=== PATIENT | male | born 1970 | race Two or more races ===

== ENCOUNTER → 2020-08-28 | Outpatient (CLI) | payer OTHER ==
[2020-08-28 13:22] LABS: Urine Amorphous Crystal MOD /hpf (None Seen); Urine Bacteria NONE SEEN /hpf (None Seen); Urine Blood Negative /uL (Negative); Urine Specific Gravity 1.017 (1.001-1.035); Urine WBC 1 /hpf (0 - 3)
[2020-08-28 13:48] LABS: Basophils # (auto) 0 10 ^3/uL (0-0.2); Basophils % (auto) 0.4 % (0.0-2.0); Eosinophils # (auto) 0.1 10 ^3/uL (0-0.8); Eosinophils % (auto) 1.8 % (0.0-7.0); Hematocrit 45.4 % (41.0-53.0); Hemoglobin 15.9 g/dL (13.5-17.5); Lymphocytes # (auto) 1.6 10 ^3/uL (0.4-5.4); Lymphocytes % (auto) 26.7 % (10.0-50.0); Mean Corpuscular Hemoglobin 31.4 pg (28.0-32.0); Mean Corpuscular Volume 89.7 fL (80.0-100.0); Monocytes # (auto) 0.4 10 ^3/uL (0-1.3); Monocytes % (auto) 6.2 % (0.0-12.0); Neutrophils % (auto) 64.9 % (37.0-80.0); Nucleated Red Blood Cells % 0.2 %; Platelet Count (auto) 213 10^3/uL (140-450); Red Blood Cells 5.06 10^6/uL (4.5-5.90); Red Cell Distribution Width 13.2 % (11.8-14.3); White Blood Cell 6.2 10^3/uL (4.4-10.8)
[2020-08-28 14:04] LABS: Albumin 3.6 g/dL (3.4-5.0); Calcium 8.6 mg/dL (8.5-10.1); Potassium 4.5 mmol/L (3.5-5.1)
[2020-08-28 14:08] LABS: BUN/Creatinine Ratio 11.9; Bilirubin, Total 0.6 mg/dL (0.2-1.0); Total Protein 7.5 g/dL (6.4-8.2)
== END | disposition home or self-care (01) ==
LOC: LAB 12:50
PROVIDERS: ATTEND Internal Medicine
DX: R09.89 Other specified symptoms and signs involving the circulatory and respiratory systems (principal)
CPT/HCPCS: 36415; 80053; 81001; 82088; 82384; 83036; 84244; 84439; 84443; 85025; 85652

== ENCOUNTER → 2021-05-19 | Outpatient (CLI) | payer OTHER | END | disposition home or self-care (01) | LOC: LAB 12:23 | PROVIDERS: ATTEND Internal Medicine | DX: E11.9 Type 2 diabetes mellitus without complications (principal) | CPT/HCPCS: 36415; 83036; 84153 ==

== ENCOUNTER → 2021-10-02 | Outpatient (CLI) | payer OTHER ==
[2021-10-02 10:50] LABS: Urine Bacteria NONE SEEN /hpf (None Seen); Urine Blood 1+ /uL (Negative); Urine Mucus FEW (None Seen); Urine Specific Gravity 1.024 (1.001-1.035); Urine WBC 16 /hpf (0 - 3)
[2021-10-02 10:59] LABS: Basophils # (auto) 0 10 ^3/uL (0-0.2); Basophils % (auto) 0.8 % (0.0-2.0); Eosinophils # (auto) 0.2 10 ^3/uL (0-0.8); Eosinophils % (auto) 3.8 % (0.0-7.0); Hematocrit 39.5 % (41.0-53.0); Hemoglobin 13.8 g/dL (13.5-17.5); Lymphocytes # (auto) 1.7 10 ^3/uL (0.4-5.4); Lymphocytes % (auto) 29.3 % (10.0-50.0); Mean Corpuscular Hemoglobin 31.8 pg (28.0-32.0); Mean Corpuscular Hgb Conc. 34.9 g/dL (32.0-36.0); Mean Corpuscular Volume 91.1 fL (80.0-100.0); Monocytes # (auto) 0.5 10 ^3/uL (0-1.3); Monocytes % (auto) 9.4 % (0.0-12.0); Neutrophils # (auto) 3.3 10 ^3/uL (1.6-8.6); Neutrophils % (auto) 56.7 % (37.0-80.0); Nucleated Red Blood Cells % 0.1 %; Red Blood Cells 4.34 10^6/uL (4.5-5.90); Red Cell Distribution Width 13.3 % (11.8-14.3); White Blood Cell 5.8 10^3/uL (4.4-10.8)
[2021-10-02 11:16] LABS: Albumin 3.8 g/dL (3.4-5.0); Calcium 9.8 mg/dL (8.5-10.1); Potassium 4.3 mmol/L (3.5-5.1)
[2021-10-02 11:22] LABS: BUN/Creatinine Ratio 27.8; Bilirubin, Total 0.8 mg/dL (0.2-1.0); Total Protein 7.7 g/dL (6.4-8.2)
[2021-10-02 11:27] LABS: Free T4 (Free Thyroxine) 1.43 ng/dL (0.89-1.76); Prostate Specific Antigen 0.65 ng/mL (0.0-4.0)
== END | disposition home or self-care (01) ==
LOC: LAB 10:28
PROVIDERS: ATTEND Internal Medicine
DX: Z12.11 Encounter for screening for malignant neoplasm of colon (principal); I10 Essential (primary) hypertension; Z86.39 Personal history of other endocrine, nutritional and metabolic disease
CPT/HCPCS: 36415; 80053; 80061; 81001; 82043; 82270; 83036; 84153; 84439; 84443; 85025; 85652

== ENCOUNTER → 2022-06-16 | Outpatient (CLI) | payer OTHER ==
[2022-06-16 09:30] LABS: Urine Bacteria NONE SEEN /hpf (None Seen); Urine Blood Negative /uL (Negative); Urine Mucus FEW (None Seen); Urine Specific Gravity 1.026 (1.001-1.035); Urine WBC 1 /hpf (0 - 3)
[2022-06-16 10:43] LABS: BUN/Creatinine Ratio 18.8; Potassium 4.1 mmol/L (3.5-5.1)
[2022-06-16 10:44] LABS: Calcium 9.5 mg/dL (8.5-10.1)
== END | disposition home or self-care (01) ==
LOC: LAB 09:02
PROVIDERS: ATTEND Internal Medicine
DX: E11.21 Type 2 diabetes mellitus with diabetic nephropathy (principal); I10 Essential (primary) hypertension
CPT/HCPCS: 36415; 80048; 81001; 82043; 82570; 83036

== ENCOUNTER → 2022-10-14 | Outpatient (CLI) | payer OTHER ==
[2022-10-14 08:50] LABS: Basophils # (auto) 0 10 ^3/uL (0-0.2); Basophils % (auto) 0.6 % (0.0-2.0); Eosinophils # (auto) 0.2 10 ^3/uL (0-0.8); Eosinophils % (auto) 3.9 % (0.0-7.0); Hematocrit 43.8 % (41.0-53.0); Hemoglobin 15.1 g/dL (13.5-17.5); Lymphocytes # (auto) 1.9 10 ^3/uL (0.4-5.4); Lymphocytes % (auto) 38.5 % (10.0-50.0); Mean Corpuscular Hemoglobin 31.3 pg (28.0-32.0); Mean Corpuscular Hgb Conc. 34.4 g/dL (32.0-36.0); Monocytes # (auto) 0.4 10 ^3/uL (0-1.3); Monocytes % (auto) 8.3 % (0.0-12.0); Neutrophils # (auto) 2.5 10 ^3/uL (1.6-8.6); Neutrophils % (auto) 48.7 % (37.0-80.0); Nucleated Red Blood Cells % 0.3 %; Red Blood Cells 4.82 10^6/uL (4.5-5.90); Red Cell Distribution Width 12.7 % (11.8-14.3)
[2022-10-14 08:52] LABS: Urine Bacteria NONE SEEN /hpf (None Seen); Urine Blood Negative /uL (Negative); Urine Mucus FEW (None Seen); Urine Specific Gravity 1.022 (1.001-1.035); Urine WBC <1 /hpf (0 - 3)
[2022-10-14 09:24] LABS: Potassium 4.2 mmol/L (3.5-5.1)
[2022-10-14 09:31] LABS: Free T4 (Free Thyroxine) 1.38 ng/dL (0.89-1.76)
[2022-10-14 09:32] LABS: Prostate Specific Antigen 0.84 ng/mL (0.0-4.0)
[2022-10-14 09:33] LABS: Albumin 4.1 g/dL (3.4-5.0); BUN/Creatinine Ratio 18.1 (10.0-20.0); Bilirubin, Total 0.9 mg/dL (0.2-1.0); Calcium 9.1 mg/dL (8.5-10.1); Total Protein 7.8 g/dL (6.4-8.2)
[2022-10-14 09:43] LABS: Micro Albumin 27.6 mg/L (0-30.0)
== END | disposition home or self-care (01) ==
LOC: LAB 08:26
PROVIDERS: ATTEND Internal Medicine
DX: I10 Essential (primary) hypertension (principal); E11.9 Type 2 diabetes mellitus without complications; D64.9 Anemia, unspecified
CPT/HCPCS: 36415; 80053; 80061; 81001; 82043; 82570; 82607; 83036; 84153; 84439; 84443; 85025; 85652

== ENCOUNTER 2024-03-27 12:32 | Emergency (ER) | payer OTHER ==
[~2024-03-27] VITALS: Ht 175.3 cm; Wt 109.0 kg
[2024-03-27 13:55] VITALS: BP 160/83; PULSE 79; RESP 18; TEMP 98.8; O2SAT 96
[2024-03-27] MEDS: PROPARACAINE HCL 0.5% OPTH(EYE) SOL 15ML OP PRN (14:48)
[2024-03-27] MEDS: FLUORESCEIN SOD OPTH TEST STRIP LEFTEYE ONE (14:48)
[2024-03-27] MEDS ORDERED: ERY05OO OP (14:52)
[2024-03-27] MEDS: TETANUS-DIPTH-ACEL PERTUSSIS 0.5ML SYR Tdap IM ONE (14:52)
== END 2024-03-27 15:38 | disposition home or self-care (01) ==
LOC: ER 12:32
DX: S05.02XA Injury of conjunctiva and corneal abrasion without foreign body, left eye, initial encounter (principal); X58.XXXA Exposure to other specified factors, initial encounter; Y93.89 Activity, other specified; Y92.89 Other specified places as the place of occurrence of the external cause; Y99.8 Other external cause status
CPT/HCPCS: 90471; 90715

== ENCOUNTER 2024-12-11 04:22 | Inpatient (IN) | payer OTHER ==
[~2024-12-11] VITALS: Ht 175.3 cm; Wt 112.0 kg
[2024-12-11] VITALS (14 sets, daily range): BP systolic 133–174; BP diastolic 82–104; PULSE 71–103; RESP 13–18; TEMP 97.7–99; O2SAT 95–99
[~2024-12-11 04:22] MED LIST: ERY05OO OP
--- NOTE | 2024-12-11 05:00 | ED.PDOC ---
History of Present Illness HPI Comments 54-year-old male, with a history of kidney stones, presents with chief complaint of right flank discomfort, associated nausea and dry heaving. Patient endorses on having discomfort to his right flank for several months following recent diagnosis of small, nonobstructing kidney stone. Patient states on pain presenting along with additional onset of nausea and dry heaving around 2100, last night. Denies any recent injuries along with any additional pertinent or relevant history. Patient denies having any vomiting, urinary symptoms, fever, chills, or further associated symptoms. Chief Complaint: Flank Pain Time Seen by MD: 04:30 Primary Care Provider: PEEWEE Reviewed Notes: Nurses Notes, Medications, Allergies Allergies: Coded Allergies: NO KNOWN ALLERGIES (Unverified , 03/27/24) Home Meds Active Scripts Erythromycin (Erythromycin) 5 Mg/Gm Oin, 1 APPLIC OP TID for 7 Days, #5 GRAMS 0 Refills Prov:MIKEGUTIERREZ PIPELAYER 03/27/24 Reported Medications Labetalol Hcl (Labetalol Hcl) 100 Mg Tab, 1 TAB PO BID 12/11/24 Amlodipine Besylate (Amlodipine Besylate) 10 Mg Tab, 1 TAB PO 12/11/24 Mode of Arrival: Ambulatory Severity: Moderate Timing: Hours Duration: Since onset Prehospital treatment: None Review of Systems: REVIEW OF SYSTEMS: General: No fever, no chills, or fatigue HEENT: No sore throat, no earache, no congestion, no neck pain. Cardiac: No chest pain. No palpitations. Lungs: No shortness of breath, no cough. GI: Nausea, no vomiting, no diarrhea, no constipation, no abdominal pain : Right flank pain. No dysuria, frequency, or urgency. No hematuria. Musculoskeletal: No joint pain , no joint swelling, no extremity edema. Skin: No rash, no itching. Neuro: No headache, no dizziness, no weakness Vital Signs Vital Signs Date Time Temp Pulse Resp B/P (MAP) Pulse Ox O2 Delivery O2 Flow Rate FiO2 12/11/24 08:12 174/97 12/11/24 07:30 98.4 86 13 99 98.4 12/11/24 07:30 Room Air* 0 21 Physical Exam PHYSICAL EXAM: General: Awake, alert and oriented. No acute distress. Skin: Skin in warm, dry and intact. Appropriate color for ethnicity. HEENT: The head is normocephalic and atraumatic. Conjunctivae are clear without exudates or hemorrhage. Sclera is non-icteric. EOM are intact. No signs of nystagmus. Eyelids are normal in appearance without swelling or lesions. Oral mucosa is pink and moist Neck: The neck is supple with normal range of motion. No JVD. Cardiac: Heart rate and rhythm are normal. No murmurs, gallops, or rubs are auscultated. Respiratory: No signs of respiratory distress. Lung sounds are clear in all lobes bilaterally without rales, rhonchi, or wheezes. Abdominal: Right flank tenderness. Abdomen is soft, non-tender without distention, guarding or rigidity. Bowel sounds are present and normoactive in all four quadrants. Extremities: Upper and lower extremities are atraumatic in appearance without deformity or edema. Neurological: The patient is awake, alert and oriented to person, place, and time with normal speech. Speech is clear. There is no facial asymmetry. Psychiatric: Appropriate mood and affect. Good judgement and insight. Past Medical History PAST MEDICAL HISTORY: Kidney Stones Surgical History: Denies all surgeries Family History Family History: Reviewed,noncontributory to illness Social History Smoker: Non-Smoker Alcohol: Denies ETOH Use Drugs: Denies Drug Use Lives In: Home Was a procedure done? Was a procedure done?: No Differential Dx Considerations may include: Differential diagnosis includes but is not limited to pyelonephritis, nephrolithiasis, AAA, musculoskeletal pain, urinary tract infection, cholecystitis, appendicitis, other X-Ray, Labs, Meds, VS Vital Signs Date Time Temp Pulse Resp B/P (MAP) Pulse Ox O2 Delivery O2 Flow Rate FiO2 12/11/24 08:12 174/97 12/11/24 07:30 98.4 86 13 188/105 (132) 99 98.4 12/11/24 07:30 86 13 99 Room Air* 0 12/11/24 07:29 62 12/11/24 06:54 90 20 197/111 12/11/24 06:45 80 13 96 Room Air* 0 12/11/24 05:59 69 16 165/94 12/11/24 05:46 98.2 75 16 165/94 (117) 94 98.2 12/11/24 04:39 98.9 94 18 156/94 (114) 96 98.9 Lab Test 12/11/24 05:37 12/11/24 04:50 Range/Units White Blood Count 9.9 4.4-10.8 10^3/uL Red Blood Count 5.08 4.5-5.90 10^6/uL Hemoglobin 15.9 13.5-17.5 g/dL Hematocrit 45.8 41.0-53.0 % Mean Corpuscular Volume 90.0 80.0-100.0 fL Mean Corpuscular Hemoglobin 31.3 28.0-32.0 pg Mean Corpuscular Hemoglobin Concent 34.8 32.0-36.0 g/dL Red Cell Distribution Width 13.3 11.8-14.3 % Platelet Count 224 140-450 10^3/uL Mean Platelet Volume 8.3 6.9-10.8 fL Neutrophils (%) (Auto) 77.6 37.0-80.0 % Lymphocytes (%) (Auto) 15.5 10.0-50.0 % Monocytes (%) (Auto) 6.0 0.0-12.0 % Eosinophils (%) (Auto) 0.6 0.0-7.0 % Basophils (%) (Auto) 0.3 0.0-2.0 % Neutrophils # (Auto) 7.7 1.6-8.6 10 ^3/uL Lymphocytes # (Auto) 1.5 0.4-5.4 10 ^3/uL Monocytes # (Auto) 0.6 0-1.3 10 ^3/uL Eosinophils # (Auto) 0.1 0-0.8 10 ^3/uL Basophils # (Auto) 0 0-0.2 10 ^3/uL Nucleated Red Blood Cells 0.0 % Sodium Level 137 136-145 mmol/L Potassium Level 4.4 3.5-5.1 mmol/L Chloride Level 105 98-107 mmol/L Carbon Dioxide Level 24 20-31 mmol/L Anion Gap 8 5-15 Blood Urea Nitrogen 24 H 9-23 mg/dL Creatinine 1.40 H 0.700-1.30 mg/dL Glomerular Filtration Rate Calc 60 >90 mL/min BUN/Creatinine Ratio 17.1 10.0-20.0 Serum Glucose 153 H 74-106 mg/dL Hemoglobin A1c 6.1 H <5.7 % A1C Calcium Level 9.6 8.7-10.4 mg/dL Urine Color Light-yellow Yellow Urine Clarity Clear Clear Urine pH 5.5 5.0-9.0 Urine Specific [place] 1.023 1.001-1.035 Urine Protein Trace H Negative Urine Ketones Negative Negative Urine Blood Negative Negative /uL Urine Nitrite Negative Negative Urine Bilirubin Negative Negative Urine Urobilinogen Normal Negative mg/dL Urine Leukocyte Esterase Negative Negative /uL Urine RBC 3 0 - 3 /hpf Urine Microscopic WBC < 1 0-3 /HPF Urine Squamous Epithelial Cells None seen <5 /hpf Urine Bacteria None seen None Seen /hpf Urine Mucus Few None Seen Urine Glucose Normal Normal mg/dL Current Medications Medications (Trade) Dose Ordered Sig/Abi Route Start Time Stop Time Status Last Admin Sodium Chloride 1,000 ml @ 1,000 mls/hr Q1H ONCE IV 12/11/24 05:30 12/11/24 06:29 DC 12/11/24 05:59 Morphine Sulfate 1 mg ONCE ONCE IV 12/11/24 05:30 12/11/24 05:32 DC 12/11/24 05:59 Ondansetron HCl (Zofran) 4 mg ONCE ONCE IV 12/11/24 07:15 12/11/24 07:16 DC 12/11/24 08:13 Ketorolac Tromethamine (Toradol Injection) 15 mg ONCE ONCE IV 12/11/24 07:15 12/11/24 07:16 DC 12/11/24 08:13 Fentanyl Citrate 12.5 mcg ONCE ONCE IV 12/11/24 07:45 12/11/24 07:46 DC 12/11/24 08:12 Time of 1ST Reevaluation: 05:00 Reevaluation 1ST: Unchanged Patient Education/Counseling: Need For Follow Up Family Education/Counseling: No Family Present SEPSIS Sepsis Screen Date sepsis recognized/suspect: Dec 11, 2024 Time Sepsis recognized/suspect: 045 Recent Procedure: No On Antibiotic Therapy: No Respiratory Rate >20: No Heart Rate >90: Yes Temp<36 C (96.8 F) or >38.3 C: No SBP <90 or MAP <65 mmHG: No New Acute Mental Status Change: No Is the patient on CPAP, BIPAP,: No Physician Orders Ct Ab Pel Wo Con-No Oral Or Iv (12/11/24 04:43) Vital Signs Date Time Temp Pulse Resp B/P (MAP) Pulse Ox O2 Delivery O2 Flow Rate FiO2 12/11/24 08:12 174/97 12/11/24 07:30 98.4 86 13 188/105 (132) 99 98.4 12/11/24 07:30 86 13 99 Room Air* 0 12/11/24 07:29 62 12/11/24 06:54 90 20 197/111 12/11/24 06:45 80 13 96 Room Air* 0 12/11/24 05:59 69 16 165/94 12/11/24 05:46 98.2 75 16 165/94 (117) 94 98.2 12/11/24 04:39 98.9 94 18 156/94 (114) 96 98.9 Laboratory Tests Test 12/11/24 05:37 White Blood Count 9.9 10^3/uL (4.4-10.8) Medications Medications Dose Ordered Sig/Aib Route Start Time Stop Time Status Last Admin Dose Admin Fentanyl Citrate 12.5 mcg ONCE ONCE IV 12/11/24 07:45 12/11/24 07:46 DC 12/11/24 08:12 Ketorolac Tromethamine 15 mg ONCE ONCE IV 12/11/24 07:15 12/11/24 07:16 DC 12/11/24 08:13 Ondansetron HCl 4 mg ONCE ONCE IV 12/11/24 07:15 12/11/24 07:16 DC 12/11/24 08:13 Departure 1 Departure Time of Disposition: 05:28 Impression: Primary Impression: Hydronephrosis with renal and ureteral calculous obstruction Disposition: ADMITTED INPATIENT Condition: Stable Comments 54 year old male with obstructing 10 mm kidney stone on the right. Patient admitted to hospitalist service for further treatment, evaluation and monitoring. Extensive evaluation was performed in attempt to identify or rule out: (See differential diagnosis section) The following tests were ordered, and results were reviewed by me and discussed with patient: (See diagnostic results section) The following test were independently interpreted by me: N/A I reviewed and agreed with the following test results read by other providers: CT of the abdomen and pelvis without contrast I reviewed the following notes from the pt's past medical encounters: March 27, 2024 encounter for corneal abrasion Additional information was gathered from interviewing the following independent historians: N/A Discussion of management or test interpretation with external physician/other qualified health critical care unit nurse: N/A Decision regarding hospitalization or escalation of hospital level of care: Risk and benefits of admission for further treatment of patient's condition was considered. Due to patient's current clinical condition, high risk of decline and poor outcome if discharged and need for further inpatient management and monitoring, patient will be admitted to the hospital. Critical Care Note Critical Care Time?: No Stability Stability form required: No Heart Score Heart Score: Heart Score Response (Comments) Value History N/A 0 EKG N/A 0 Age N/A 0 Risk Factors N/A 0 Troponin N/A 0 Total 0 I personally scribed for LESLEY OTERO MD ([email or web address]) on 12/11/24 at 05:00. Electronically submitted by Kush Christianson ([email or web address]). LESLEY OTERO MD Dec 11, 2024 05:00
[2024-12-11 05:15] LABS: Urine Protein, UAD TRACE (Negative)
--- NOTE | 2024-12-11 05:22 | DVH ---
Exam: CT CT AB PEL WO CON-NO ORAL OR IV History: R flank pain , hx kidney stones Comparison Study: None Technique: Multidetector spiral CT of the abdomen and pelvis was performed from lung bases to pubic s ymphysis. Imaging was performed without intravenous contrast. Coronal and sagittal multiplanar reform ats were obtained from the axial data set by the technologist. Radiation Dose : 1. Abdomen/Pelvis: CTDIvol 22.82 mGy, DLP 1301.69 mGy*cm. Findings: Evaluation of vasculature and solid organs is limited due to lack of intravenous contrast use. Lung Bases: Lung bases are clear. Visualized portions of the heart and pericardium are unremarkable. Liver: The liver is normal in size. No focal lesions. Gallbladder and Biliary Tree: Gallstone. No intrahepatic or extrahepatic biliary ductal dilatation. Spleen: Unremarkable Pancreas: The pancreas is grossly unremarkable. Adrenal Glands: Unremarkable Kidneys: There is a 10 mm obstructive right proximal ureteral calculus causing moderate right hydrour eteronephrosis. There is right perinephric fat stranding. No evidence of left intrarenal calculi or h ydronephrosis. GI tract: The stomach is grossly normal in appearance. No evidence of small bowel wall thickening or abnormal dilatation to suggest bowel obstruction. Colonic diverticulosis without acute diverticulitis . The appendix is not visualized, however no inflammatory changes in the right lower quadrant to sugg est acute appendicitis. Peritoneum/mesentery/retroperitoneum. No evidence of free intraperitoneal air. No ascites. No evidenc e of suspicious lymphadenopathy. Abdominal Wall: Unremarkable. Vasculature: The visualized abdominal aorta is normal in size and caliber. Evaluation of abdominal a nd pelvic vessels is limited due to lack of intravenous contrast. Urinary Bladder: Grossly unremarkable for degree of distention. Pelvic Organs: Unremarkable Musculoskeletal: No aggressive focal bony lesions, acute fractures or dislocation. IMPRESSION: 1. Moderate right hydroureteronephrosis due to 10 mm obstructive proximal right ureteral calculus. 2. Sigmoid diverticulosis without acute diverticulitis.
[2024-12-11 05:55] LABS: Hematocrit 45.8 % (41.0-53.0); Hemoglobin 15.9 g/dL (13.5-17.5); Mean Corpuscular Hemoglobin 31.3 pg (28.0-32.0); Mean Corpuscular Volume 90.0 fL (80.0-100.0); Nucleated Red Blood Cells % 0.0 %
[2024-12-11] MEDS: SODIUM CHLORIDE 0.9% 1,000 ML IV ONE (05:59)
[2024-12-11] MEDS: MORPHINE SULFATE INJ 2 MG/ml SYRG IV ONE (05:59)
[2024-12-11 06:05] LABS: Chloride 105 mmol/L (98-107); Potassium 4.4 mmol/L (3.5-5.1); Sodium 137 mmol/L (136-145)
[2024-12-11 06:06] LABS: Anion Gap 8 (5-15); Carbon Dioxide 24 mmol/L (20-31)
[2024-12-11 06:07] LABS: Calcium 9.6 mg/dL (8.7-10.4)
[2024-12-11 06:11] LABS: BUN/Creatinine Ratio 17.1 (10.0-20.0)
[2024-12-11 06:15] LABS: Blood Urea Nitrogen 24 mg/dL (9-23); Glucose 153 mg/dL (74-106)
[2024-12-11] MEDS ORDERED: fentaNYL CITRATE 100 MCG/2 ML VL IV ONE (07:45)
[2024-12-11] MEDS: fentaNYL CITRATE 100 MCG/2 ML VL IV ONE ×2 (08:11→08:12)
[2024-12-11] MEDS: ONDANSETRON HCL 4 MG/2 ML VIAL IV ONE (08:13)
[2024-12-11] MEDS: KETOROLAC TROMETH 30 MG/ML 1ML VIAL IV ONE (08:13)
[2024-12-11] MEDS ORDERED: NITROGLYCERIN 0.4 MG SL TAB SL PRN (08:15)
[2024-12-11] MEDS ORDERED: ONDANSETRON HCL 4 MG/2 ML VIAL IV PRN (08:15)
[2024-12-11] MEDS ORDERED: ACETAMINOPHEN 325 MG TAB PO PRN (08:15)
[2024-12-11] MEDS ORDERED: HYDROcodone-ACET 5/325MG TAB PO PRN (08:15)
[2024-12-11] MEDS ORDERED: MORPHINE SULFATE INJ 2 MG/ml SYRG IV PRN ×2 (08:15)
[2024-12-11] MEDS ORDERED: DOCUSATE SOD 100 MG CAP PO PRN (08:15)
--- NOTE | 2024-12-11 08:34 | DVHHP2 ---
History of Present Illness Reason for Visit: Hydroureteronephrosis History of Present Illness The patient is a 54-year-old male with past medical history of hypertension and kidney stones who presented to [facility] ED with complaint of right flank pain. Patient reports he has been experiencing discomfort to his right flank for several months, associated nausea, nonradiating right flank pain, rating 8/10 numeric scale, getting worse today that prompted this visit. Patient was seen and evaluated in the ED, laboratory data shows WBC 9.9, platelets 224, sodium 137, potassium 4.4, BUN 24, creatinine 1.40, glucose 153, calcium 5.6, blood pressure 197/111, heart rate 62, temperature 98.7 F, O2 saturation 96% on room air. Abdomen/pelvis CT revealing moderate right hydroureteronephrosis due to 10 mm obstructive proximal right ureteral calculus, sigmoid diverticulosis without acute diverticulitis. Patient was given IV hydralazine, please see medication orders section in the computer. On my assessment, patient denies chest pain, no headache, no dizziness, no diaphoresis, no shortness of breaths, no nausea, no vomiting, no fever, no chills. Patient was admitted for further evaluation and medical management. Past Medical History Hypertension, Kidney Stones Past Surgical History Denies all surgeries Family History Reviewed, noncontributory to the management of this case. Past Social History The patient lives at home, denies smoking, alcohol or illicit drugs abuse. Review of Systems Constitutional: No: Fever, Chills, Sweats, Weakness, Malaise, Other Eyes: No: Pain, Vision change, Conjunctivae inflammation, Eyelid inflammation, Other, Redness ENT: No: Ear pain, Ear discharge, Nose pain, Nose discharge, Nose congestion, Mouth pain, Mouth swelling, Throat pain, Throat swelling, Other Respiratory: No: Cough, Dry, Shortness of breath, SOB with excertion, Wheezing, Hemoptysis, Pleuritic Pain, Sputum, Wheezing, Other Cardiovascular: No: Chest Pain, Palpitations, Orthopnea, Paroxysmal Noc. Dyspnea, Edema, Lt Headedness, Other Gastrointestinal: Nausea, Abdominal Pain; No: Vomiting, Diarrhea, Constipation, Melena, Hematochezia, Other Genitourinary: No Dysuria, No Frequency, No Incontinence, No Hematuria, No Retention; Other (Right flank pain) Musculoskeletal: No: other, neck pain, shoulder pain, arm pain, back pain, hand pain, leg pain, foot pain Skin: No: Rash, Lesions, Jaundice, Bruising, Other Neurological: No: Weakness, Numbness, Incoordination, Change in speech, Confusion, Seizures, Other Allergies: Coded Allergies: NO KNOWN ALLERGIES (Unverified , 03/27/24) Exam Vital Signs Vital Signs Date Time Temp Pulse Resp B/P (MAP) Pulse Ox O2 Delivery O2 Flow Rate FiO2 12/11/24 08:12 174/97 12/11/24 07:29 62 12/11/24 06:54 20 12/11/24 06:45 96 Room Air* 0 21 12/11/24 05:46 98.2 98.2 General Appearance: Alert, Oriented X3, Cooperative, No acute distress HEENT: Atraumatic, PERRLA, EOMI, Mucous membr. moist/pink Respiratory: Clear to auscultation, Normal air movement Cardiovascular: Regular rate, Normal S1, Normal S2, No murmurs Abdominal: Normal bowel sounds, Soft, No tenderness, No hepatospenomegaly, No masses Extremities: No clubbing, No cyanosis, No edema, Normal pulses, No tenderness/swelling Skin: No rashes, No breakdown, No significant lesion Neuro: Normal gait, Normal speech, Strength at 5/5 X4 ext, Normal tone, S ensation intact, Cranial nerves 3-12 NL, Reflexes 2+ Psych/Mental Status: Mental status NL, Mood NL Labs/Xrays Labs Test 12/11/24 05:37 12/11/24 04:50 Range/Units White Blood Count 9.9 4.4-10.8 10^3/uL Red Blood Count 5.08 4.5-5.90 10^6/uL Hemoglobin 15.9 13.5-17.5 g/dL Hematocrit 45.8 41.0-53.0 % Mean Corpuscular Volume 90.0 80.0-100.0 fL Mean Corpuscular Hemoglobin 31.3 28.0-32.0 pg Mean Corpuscular Hemoglobin Concent 34.8 32.0-36.0 g/dL Red Cell Distribution Width 13.3 11.8-14.3 % Platelet Count 224 140-450 10^3/uL Mean Platelet Volume 8.3 6.9-10.8 fL Neutrophils (%) (Auto) 77.6 37.0-80.0 % Lymphocytes (%) (Auto) 15.5 10.0-50.0 % Monocytes (%) (Auto) 6.0 0.0-12.0 % Eosinophils (%) (Auto) 0.6 0.0-7.0 % Basophils (%) (Auto) 0.3 0.0-2.0 % Neutrophils # (Auto) 7.7 1.6-8.6 10 ^3/uL Lymphocytes # (Auto) 1.5 0.4-5.4 10 ^3/uL Monocytes # (Auto) 0.6 0-1.3 10 ^3/uL Eosinophils # (Auto) 0.1 0-0.8 10 ^3/uL Basophils # (Auto) 0 0-0.2 10 ^3/uL Nucleated Red Blood Cells 0.0 % Sodium Level 137 136-145 mmol/L Potassium Level 4.4 3.5-5.1 mmol/L Chloride Level 105 98-107 mmol/L Carbon Dioxide Level 24 20-31 mmol/L Anion Gap 8 5-15 Blood Urea Nitrogen 24 H 9-23 mg/dL Creatinine 1.40 H 0.700-1.30 mg/dL Glomerular Filtration Rate Calc 60 >90 mL/min BUN/Creatinine Ratio 17.1 10.0-20.0 Serum Glucose 153 H 74-106 mg/dL Calcium Level 9.6 8.7-10.4 mg/dL Urine Color Light-yellow Yellow Urine Clarity Clear Clear Urine pH 5.5 5.0-9.0 Urine Specific [place] 1.023 1.001-1.035 Urine Protein Trace H Negative Urine Ketones Negative Negative Urine Blood Negative Negative /uL Urine Nitrite Negative Negative Urine Bilirubin Negative Negative Urine Urobilinogen Normal Negative mg/dL Urine Leukocyte Esterase Negative Negative /uL Urine RBC 3 0 - 3 /hpf Urine Microscopic WBC < 1 0-3 /HPF Urine Squamous Epithelial Cells None seen <5 /hpf Urine Bacteria None seen None Seen /hpf Urine Mucus Few None Seen Urine Glucose Normal Normal mg/dL PATIENT: KRISTEN ARRIETA ACCT: [id number] UNIT: [id number] : 1970 LOC: ER ROOM / BED: / AGE / SEX: 54 / M ADM STATUS: REG ER SERVICE [id number] ORDERING PHYSICIAN: LESLEY OTERO MD PROCEDURE(s): ABPL - CT AB PEL WO CON-NO ORAL OR IV REASON: R flank pain , hx kidney stones ORDER NUMBER(s): [id number], ACCESSION NUMBER(s): [id number] Exam: CT CT AB PEL WO CON-NO ORAL OR IV History: R flank pain, hx kidney stones Comparison Study: None Technique: Multidetector spiral CT of the abdomen and pelvis was performed from lung bases to pubic symphysis. Imaging was performed without intravenous contrast. Coronal and sagittal multiplanar reformats were obtained from the axial data set by the technologist. Radiation Dose: 1. Abdomen/Pelvis: CTDIvol 22.82 mGy, DLP 1301.69 mGy*cm. Findings: Evaluation of vasculature and solid organs is limited due to lack of intravenous contrast use. Lung Bases: Lung bases are clear. Visualized portions of the heart and pericardium are unremarkable. Liver: The liver is normal in size. No focal lesions. Gallbladder and Biliary Tree: Gallstone. No intrahepatic or extrahepatic biliary ductal dilatation. Spleen: Unremarkable Pancreas: The pancreas is grossly unremarkable. Adrenal Glands: Unremarkable Kidneys: There is a 10 mm obstructive right proximal ureteral calculus causing moderate right hydroureteronephrosis. There is right perinephric fat stranding. No evidence of left intrarenal calculi or hydronephrosis. GI tract: The stomach is grossly normal in appearance. No evidence of small bowel wall thickening or abnormal dilatation to suggest bowel obstruction. Colonic diverticulosis without acute diverticulitis. The appendix is not visualized, however no inflammatory changes in the right lower quadrant to suggest acute appendicitis. Peritoneum/mesentery/retroperitoneum. No evidence of free intraperitoneal air. No ascites. No evidence of suspicious lymphadenopathy. Abdominal Wall: Unremarkable. Vasculature: The visualized abdominal aorta is normal in size and caliber. Evaluation of abdominal and pelvic vessels is limited due to lack of intravenous contrast. Urinary Bladder: Grossly unremarkable for degree of distention. Pelvic Organs: Unremarkable Musculoskeletal: No aggressive focal bony lesions, acute fractures or dislocation. IMPRESSION: 1. Moderate right hydroureteronephrosis due to 10 mm obstructive proximal right ureteral calculus. 2. Sigmoid diverticulosis without acute diverticulitis. SEPSIS Sepsis Screen Date sepsis recognized/suspect: Dec 11, 2024 Time Sepsis recognized/suspect: 652 Recent Procedure: No On Antibiotic Therapy: No Respiratory Rate >20: No Heart Rate >90: No Temp<36 C (96.8 F) or >38.3 C: No SBP <90 or MAP <65 mmHG: No New Acute Mental Status Change: No Is the patient on CPAP, BIPAP,: No Physician Orders Ct Ab Pel Wo Con-No Oral Or Iv (12/11/24 04:43) Amlodipine Tablet (Norvasc Tablet) (12/11/24 10:00) Hydralazine Injection (Apresoline Inject (12/11/24 08:15) * Urology Consult (12/11/24 08:14) Hemoglobin A1c (12/11/24 08:14) Admit (12/11/24 08:14) Allergies (12/11/24 08:14) Code Status (12/11/24 08:14) 0.9% Ns 1000 Ml (12/11/24 08:15) Oxygen Per Hour (12/11/24 08:14) Hydrocodone-Acet 5/325mg Tab ([place] 5/32 (12/11/24 08:15) Ondansetron Hcl (Zofran) (12/11/24 08:15) Docusate Sodium Capsule (Colace Capsule) (12/11/24 08:15) Complete Blood Count (12/12/24 04:00) Comprehensive Metabolic Panel (12/12/24 04:00) Cardiac Diet-2gna,Lofat,Lochol (12/11/24 Breakfast) Condition: Serious (12/11/24 08:14) Acetaminophen Tablet (Tylenol Tablet) (12/11/24 08:15) Bedrest With Bathroom Privileg (12/11/24 08:14) Morphine Sulfate Injection (12/11/24 08:15) Sequential Compression Device (12/11/24 ) Nitroglycerin Sublingual (Ntrostat Subli (12/11/24 08:15) Morphine Sulfate Injection (12/11/24 08:15) Notify Of Changes From Base (12/11/24 08:14) Emergency Dysrhythmia Protocol (12/11/24 08:14) Oxygen By Nasal Cannula (12/11/24 08:14) Vital Signs Date Time Temp Pulse Resp B/P (MAP) Pulse Ox O2 Delivery O2 Flow Rate FiO2 12/11/24 08:12 174/97 12/11/24 07:29 62 12/11/24 06:54 90 20 197/111 12/11/24 06:45 80 13 96 Room Air* 0 21 12/11/24 05:59 69 16 165/94 12/11/24 05:46 98.2 75 16 165/94 (117) 94 98.2 12/11/24 04:39 98.9 94 18 156/94 (114) 96 98.9 Laboratory Tests Test 12/11/24 05:37 White Blood Count 9.9 10^3/uL (4.4-10.8) Medications Medications Dose Ordered Sig/Abi Route Start Time Stop Time Status Last Admin Dose Admin Fentanyl Citrate 12.5 mcg ONCE ONCE IV 12/11/24 07:45 12/11/24 07:46 DC 12/11/24 08:12 12.5 MCG Ketorolac Tromethamine 15 mg ONCE ONCE IV 12/11/24 07:15 12/11/24 07:16 DC 12/11/24 08:13 15 MG Morphine Sulfate 1 mg ONCE ONCE IV 12/11/24 05:30 12/11/24 05:32 DC 12/11/24 05:59 1 MG Ondansetron HCl 4 mg ONCE ONCE IV 12/11/24 07:15 12/11/24 07:16 DC 12/11/24 08:13 4 MG Sodium Chloride 1,000 ml @ 1,000 mls/hr Q1H ONCE IV 12/11/24 05:30 12/11/24 06:29 DC 12/11/24 05:59 1,000 MLS/HR Assessment/Plan Assessment/Plan Right flank pain Hydroureteronephrosis Hypertensive urgency Hydronephrosis with renal and ureteral calculus obstruction Plan 1. Admit to med surge unit 2. Breathing treatment 3. Pain control management 4. Management of fluids and electrolytes 5. Consultation for Urology 6. Diagnostic tests abdomen/pelvis CT 7. DVT prophylaxis on SCDs 8. Repeat labs CBC, CMP in a.m. 9. Continue with current medical management 10. Treatment plan discussed with patient and RN. Patient verbalized understanding. Plan discussed with: Patient, Other (RN) My Orders Orders - CHUCK CASTELLANO DNP Procedure Category Date Status Time Amlodipine Tablet PHA 12/11/24 Verified (Norvasc Tablet) 10:00 Hydralazine Injection PHA 12/11/24 Verified (Apresoline Inject 08:15 * Urology Consult CONS 12/11/24 Verified 08:14 Hemoglobin A1c LAB 12/11/24 Verified 08:14 Admit ADMIT 12/11/24 Verified 08:14 Allergies [facility] 12/11/24 Verified 08:14 Code Status CODE 12/11/24 Verified 08:14 0.9% Ns 1000 Ml PHA 12/11/24 Verified 08:15 Oxygen Per Hour RT 12/11/24 Verified 08:14 Hydrocodone-Acet PHA 12/11/24 Verified 5/325mg Tab ([place] 08:15 Ondansetron Hcl PHA 12/11/24 Verified (Zofran) 08:15 Docusate Sodium PHA 12/11/24 Verified Capsule (Colace 08:15 Complete Blood Count LAB 12/12/24 Verified 04:00 Comprehensive LAB 12/12/24 Verified Metabolic Panel 04:00 Cardiac DIET 12/11/24 Verified Diet-2gna,Lofat,Lochol Breakfast Condition: Serious [facility] 12/11/24 Verified 08:14 Acetaminophen Tablet [facility] 12/11/24 Verified (Tylenol Tablet) 08:15 Bedrest With Bathroom [facility] 12/11/24 Verified Privileg 08:14 Morphine Sulfate [facility] 12/11/24 Verified Injection 08:15 Sequential [facility] 12/11/24 Verified Compression Device Nitroglycerin [facility] 12/11/24 Verified Sublingual (Ntrostat 08:15 Morphine Sulfate PHA 12/11/24 Verified Injection 08:15 Notify Md Of Changes [facility] 12/11/24 Verified From Base 08:14 Emergency Dysrhythmia [facility] 12/11/24 Verified Protocol 08:14 Oxygen By Nasal RT 12/11/24 Verified Cannula 08:14 Problem List: (1) Right flank pain (2) Hydroureteronephrosis (3) Hypertensive urgency (4) Hydronephrosis with renal and ureteral calculous obstruction Date of Service: Dec 11, 2024 Billing Provider: CHUCK CASTELLANO DNP Common Visit Codes: [id number] INP/OBS CARE (HIGH) CHUCK CASTELLANO DNP Dec 11, 2024 08:33
[2024-12-11] MEDS: SODIUM CHLORIDE 0.9% 1,000 ML IV SCH (08:54)
--- NOTE | 2024-12-11 11:53 | DVHINCON2 ---
Date of service: Dec 11, 2024 Referring Physician Hospitalist/ER Reason for Consultation Impacted 1 cm right proximal ureteral stone with moderate hydronephrosis. History of Present Illness 54-year-old male, with a history of kidney stones, presents with chief complaint of right flank discomfort, associated nausea and dry heaving. Patient endorses on having discomfort to his right flank for several months following recent diagnosis of small, nonobstructing kidney stone. Patient states on pain presenting along with additional onset of nausea and dry heaving around 2100, last night. Denies any recent injuries along with any additional pertinent or relevant history. Patient denies having any vomiting, urinary symptoms, fever, chills, or further associated symptoms. Chief Complaint: Flank Pain Primary Care Provider: PEEWEE Reviewed Notes: Nurses Notes, Medications, Allergies Allergies: Coded Allergies: NO KNOWN ALLERGIES (Unverified , 03/27/24) Home Meds Active Scripts Erythromycin (Erythromycin) 5 Mg/Gm Oin, 1 APPLIC OP TID for 7 Days, #5 GRAMS 0 Refills Prov:GUTIERREZ MCKEON NP 03/27/24 Mode of Arrival: Ambulatory Severity: Moderate Timing: Hours Duration: Since onset Prehospital treatment: None Review of Systems: Allergies: Coded Allergies: NO KNOWN ALLERGIES (Unverified , 03/27/24) Home Meds Active Scripts Erythromycin (Erythromycin) 5 Mg/Gm Oin, 1 APPLIC OP TID for 7 Days, #5 GRAMS 0 Refills Prov:GUTIERREZ MCKEON NP 03/27/24 Current Medications Current Medications Medications (Trade) Dose Ordered Sig/Abi Route PRN Reason Start Time Stop Time Status Last Admin Amlodipine Besylate (Norvasc Tablet) 10 mg DAILY PO 12/11/24 10:00 12/11/24 09:36 Hydralazine HCl (Apresoline Injection) 10 mg Q6HP PRN IV SBP>150 12/11/24 08:15 Sodium Chloride 1,000 ml @ 60 mls/hr [id number] IV 12/11/24 08:15 12/11/24 08:54 Acetaminophen/ Hydrocodone Bitart ([place] 5/325MG Tab) 1 tab Q4HP PRN PO MODERATE PAIN (4-6 PAIN SCALE) 12/11/24 08:15 Ondansetron HCl (Zofran) 4 mg Q4HP PRN IV NAUSEA / VOMITING 12/11/24 08:15 Docusate Sodium (Colace Capsule) 100 mg BIDPRN PRN PO FOR CONSTIPATION 12/11/24 08:15 Acetaminophen (Tylenol Tablet) 650 mg Q6HP PRN PO PAIN SCALE 1-3 OR TEMP>100.4 12/11/24 08:15 Morphine Sulfate 2 mg Q4HPRN PRN IV SEVERE PAIN (7-10 PAIN SCALE) 12/11/24 08:15 Nitroglycerin (Ntrostat Sublingual) 0.4 mg Q5MINP PRN SL FOR CHEST PAIN 12/11/24 08:15 Morphine Sulfate 2 mg Q30M PRN IV FOR CHEST PAIN 12/11/24 08:15 Review of Systems General: No fever, no chills, or fatigue HEENT: No sore throat, no earache, no congestion, no neck pain. Cardiac: No chest pain. No palpitations. Lungs: No shortness of breath, no cough. GI: Nausea, no vomiting, no diarrhea, no constipation, no abdominal pain : Right flank pain. No dysuria, frequency, or urgency. No hematuria. Musculoskeletal: No joint pain , no joint swelling, no extremity edema. Skin: No rash, no itching. Neuro: No headache, no dizziness, no weakness Vital Signs Vital Signs Date Time Temp Pulse Resp B/P (MAP) Pulse Ox O2 Delivery O2 Flow Rate FiO2 12/11/24 10:00 108 21 165/110 (128) 95 12/11/24 07:30 98.4 98.4 12/11/24 07:30 Room Air* 0 21 Physical Exam Vital Signs Vital Signs Date Time Temp Pulse Resp B/P (MAP) Pulse Ox O2 Delivery O2 Flow Rate FiO2 12/11/24 05:46 98.2 75 16 165/94 (117) 94 98.2 Physical Exam PHYSICAL EXAM: General: Awake, alert and oriented. No acute distress. Skin: Skin in warm, dry and intact. Appropriate color for ethnicity. HEENT: The head is normocephalic and atraumatic. Conjunctivae are clear without exudates or hemorrhage. Sclera is non-icteric. EOM are intact. No signs of nystagmus. Eyelids are normal in appearance without swelling or lesions. Oral mucosa is pink and moist Neck: The neck is supple with normal range of motion. No JVD. Cardiac: Heart rate and rhythm are normal. No murmurs, gallops, or rubs are auscultated. Respiratory: No signs of respiratory distress. Lung sounds are clear in all lobes bilaterally without rales, rhonchi, or wheezes. Abdominal: Right flank tenderness. Abdomen is soft, non-tender without distention, guarding or rigidity. Bowel sounds are present and normoactive in all four quadrants. Extremities: Upper and lower extremities are atraumatic in appearance without deformity or edema. Neurological: The patient is awake, alert and oriented to person, place, and time with normal speech. Speech is clear. There is no facial asymmetry. Psychiatric: Appropriate mood and affect. Good judgement and insight. Labs/Diagnostic Data Labs Test 12/11/24 05:37 12/11/24 04:50 Range/Units White Blood Count 9.9 4.4-10.8 10^3/uL Red Blood Count 5.08 4.5-5.90 10^6/uL Hemoglobin 15.9 13.5-17.5 g/dL Hematocrit 45.8 41.0-53.0 % Mean Corpuscular Volume 90.0 80.0-100.0 fL Mean Corpuscular Hemoglobin 31.3 28.0-32.0 pg Mean Corpuscular Hemoglobin Concent 34.8 32.0-36.0 g/dL Red Cell Distribution Width 13.3 11.8-14.3 % Platelet Count 224 140-450 10^3/uL Mean Platelet Volume 8.3 6.9-10.8 fL Neutrophils (%) (Auto) 77.6 37.0-80.0 % Lymphocytes (%) (Auto) 15.5 10.0-50.0 % Monocytes (%) (Auto) 6.0 0.0-12.0 % Eosinophils (%) (Auto) 0.6 0.0-7.0 % Basophils (%) (Auto) 0.3 0.0-2.0 % Neutrophils # (Auto) 7.7 1.6-8.6 10 ^3/uL Lymphocytes # (Auto) 1.5 0.4-5.4 10 ^3/uL Monocytes # (Auto) 0.6 0-1.3 10 ^3/uL Eosinophils # (Auto) 0.1 0-0.8 10 ^3/uL Basophils # (Auto) 0 0-0.2 10 ^3/uL Nucleated Red Blood Cells 0.0 % Sodium Level 137 136-145 mmol/L Potassium Level 4.4 3.5-5.1 mmol/L Chloride Level 105 98-107 mmol/L Carbon Dioxide Level 24 20-31 mmol/L Anion Gap 8 5-15 Blood Urea Nitrogen 24 H 9-23 mg/dL Creatinine 1.40 H 0.700-1.30 mg/dL Glomerular Filtration Rate Calc 60 >90 mL/min BUN/Creatinine Ratio 17.1 10.0-20.0 Serum Glucose 153 H 74-106 mg/dL Hemoglobin A1c 6.1 H <5.7 % A1C Calcium Level 9.6 8.7-10.4 mg/dL Urine Color Light-yellow Yellow Urine Clarity Clear Clear Urine pH 5.5 5.0-9.0 Urine Specific [place] 1.023 1.001-1.035 Urine Protein Trace H Negative Urine Ketones Negative Negative Urine Blood Negative Negative /uL Urine Nitrite Negative Negative Urine Bilirubin Negative Negative Urine Urobilinogen Normal Negative mg/dL Urine Leukocyte Esterase Negative Negative /uL Urine RBC 3 0 - 3 /hpf Urine Microscopic WBC < 1 0-3 /HPF Urine Squamous Epithelial Cells None seen <5 /hpf Urine Bacteria None seen None Seen /hpf Urine Mucus Few None Seen Urine Glucose Normal Normal mg/dL [place] [id number] Ph: [phone] DIAGNOSTIC IMAGING Diagnostic Imaging Report : [id number] Signed PATIENT: KRISTEN ARRIETA ACCT: [id number] UNIT: [id number] : 1970 LOC: ER ROOM / BED: / AGE / SEX: 54 / M ADM STATUS: REG ER SERVICE 0443 ORDERING PHYSICIAN: LESLEY OTERO MD PROCEDURE(s): ABPL - CT AB PEL WO CON-NO ORAL OR IV REASON: R flank pain , hx kidney stones ORDER NUMBER(s): [id number], ACCESSION NUMBER(s): [id number] Exam: CT CT AB PEL WO CON-NO ORAL OR IV History: R flank pain , hx kidney stones Comparison Study: None Technique: Multidetector spiral CT of the abdomen and pelvis was performed from lung bases to pubic symphysis. Imaging was performed without intravenous contrast. Coronal and sagittal multiplanar reformats were obtained from the axial data set by the technologist. Radiation Dose : 1. Abdomen/Pelvis: CTDIvol 22.82 mGy, DLP 1301.69 mGy*cm. Findings: Evaluation of vasculature and solid organs is limited due to lack of intravenous contrast use. Lung Bases: Lung bases are clear. Visualized portions of the heart and pericardium are unremarkable. Liver: The liver is normal in size. No focal lesions. Gallbladder and Biliary Tree: Gallstone. No intrahepatic or extrahepatic biliary ductal dilatation. Spleen: Unremarkable Pancreas: The pancreas is grossly unremarkable. Adrenal Glands: Unremarkable Kidneys: There is a 10 mm obstructive right proximal ureteral calculus causing moderate right hydroureteronephrosis. There is right perinephric fat stranding. No evidence of left intrarenal calculi or hydronephrosis. GI tract: The stomach is grossly normal in appearance. No evidence of small bowel wall thickening or abnormal dilatation to suggest bowel obstruction. Colonic diverticulosis without acute diverticulitis. The appendix is not visualized, however no inflammatory changes in the right lower quadrant to suggest acute appendicitis. Peritoneum/mesentery/retroperitoneum. No evidence of free intraperitoneal air. No ascites. No evidence of suspicious lymphadenopathy. Abdominal Wall: Unremarkable. Vasculature: The visualized abdominal aorta is normal in size and caliber. Evaluation of abdominal and pelvic vessels is limited due to lack of intravenous contrast. Urinary Bladder: Grossly unremarkable for degree of distention. Pelvic Organs: Unremarkable Musculoskeletal: No aggressive focal bony lesions, acute fractures or dislocation. IMPRESSION: 1. Moderate right hydroureteronephrosis due to 10 mm obstructive proximal right ureteral calculus. 2. Sigmoid diverticulosis without acute diverticulitis. ATED BY: EMILY TERAN MD DICTATED DATE/TIME: 12/11/24517 SIGNED BY: EMILY TERAN MD SIGNED DATE/TIME: 12/11/24517 CC: Assessment Right proximal ureteral calculus, 1 cm, (impacted stone) Right moderate hydronephrosis Plan/Recommendation Consult interventional radiology for right percutaneous nephrostomy tube placement. The proximal ureteral stone was impacted and stent placement would be difficult from retrograde fashion. Also percutaneous nephrostomy tube placement is less invasive management Plan discussed with: WILLIAM Fields MD Dec 11, 2024 11:53
[2024-12-11] MEDS ORDERED: AMLO1TAB23 PO (12:43)
[2024-12-11] MEDS ORDERED: LABE100T7 PO (12:43)
[2024-12-11 14:45] LABS: INR 1.04 (0.9-1.15); Partial Thromboplastin Time 26.0 SEC (24.5-34.5); Prothrombin Time 11.0 sec (9.3-11.8)
--- NOTE | 2024-12-11 14:50 | DVHPN2 ---
Reviewed: Care Plan, H&P, Labs, Medications, Previous Orders, Radiology Changes from previous H/P or p: No Changes Eyes: No Pain, No Vision change, No Conjunctivae inflammation, No Eyelid inflammation, No Other, No Redness ENT: No Ear pain, No Ear discharge, No Nose pain, No Nose discharge, No Nose congestion, No Mouth pain, No Mouth swelling, No Throat pain, No Throat swelling, No Other Cardiovascular: No Chest Pain, No Palpitations, No Orthopnea, No Paroxysmal Noc. Dyspnea, No Edema, No Lt Headedness, No Other Respiratory: No Cough, No Dry, No Shortness of breath, No SOB with excertion, No Wheezing, No Hemoptysis, No Pleuritic Pain, No Sputum, No Other Gastrointestinal: Nausea; No Vomiting; Abdominal Pain; No Diarrhea, No Constipation, No Melena, No Hematochezia, No Other Genitourinary: No Dysuria, No Frequency, No Incontinence, No Hematuria, No Retention; Other (Right flank pain) Musculoskeletal: No other, No neck pain, No shoulder pain, No arm pain, No back pain, No hand pain, No leg pain, No foot pain Skin: No Rash, No Lesions, No Jaundice, No Bruising, No Other Objective Vitals Vital Signs Date Time Temp Pulse Resp B/P (MAP) Pulse Ox O2 Delivery O2 Flow Rate FiO2 12/11/24 12:25 97.7 79 18 166/97 (120) 95 97.7 12/11/24 07:30 Room Air* 0 21 Intake/Output Intake and Output 12/11/24 07:00 Intake Total 1000 ml Balance 1000 ml Intake IV Total 1000 ml Medications Current Medications Medications Dose Ordered Sig/Abi Route Start Time Stop Time Status Last Admin Dose Admin Amlodipine Besylate 10 mg DAILY PO 12/11/24 10:00 12/11/24 09:36 10 MG Hydralazine HCl 10 mg Q6HP PRN IV 12/11/24 08:15 Sodium Chloride 1,000 ml @ 60 mls/hr [id number] IV 12/11/24 08:15 12/11/24 08:54 60 MLS/HR Acetaminophen/ Hydrocodone Bitart 1 tab Q4HP PRN PO 12/11/24 08:15 Ondansetron HCl 4 mg Q4HP PRN IV 12/11/24 08:15 Docusate Sodium 100 mg BIDPRN PRN PO 12/11/24 08:15 Acetaminophen 650 mg Q6HP PRN PO 12/11/24 08:15 Morphine Sulfate 2 mg Q4HPRN PRN IV 12/11/24 08:15 Nitroglycerin 0.4 mg Q5MINP PRN SL 12/11/24 08:15 Morphine Sulfate 2 mg Q30M PRN IV 12/11/24 08:15 Laboratory Results Laboratory Tests 12/11/24 05:37 Chemistry Test 12/11/24 05:37 Calcium Level 9.6 mg/dL (8.7-10.4) Coagulation Test 12/11/24 14:15 Prothrombin Time 11.0 sec (9.3-11.8) Prothrombin Time INR 1.04 (0.9-1.15) Activated Partial Thromboplast Time 26.0 SEC (24.5-34.5) HgA1c, TSH Test 12/11/24 05:37 Hemoglobin A1c 6.1 % A1C (<5.7) H Urinalysis Test 12/11/24 04:50 Urine Color Light-yellow (Yellow) Urine Clarity Clear (Clear) Urine pH 5.5 (5.0-9.0) Urine Specific [place] 1.023 (1.001-1.035) Urine Protein Trace (Negative) H Urine Ketones Negative (Negative) Urine Blood Negative /uL (Negative) Urine Nitrite Negative (Negative) Urine Bilirubin Negative (Negative) Urine Urobilinogen Normal mg/dL (Negative) Urine Leukocyte Esterase Negative /uL (Negative) Urine RBC 3 /hpf (0 - 3) Urine Microscopic WBC < 1 /HPF (0-3) Urine Squamous Epithelial Cells None seen /hpf (<5) Urine Bacteria None seen /hpf (None Seen) Urine Mucus Few (None Seen) Urine Glucose Normal mg/dL (Normal) Labs and/or images reviewed: Labs reviewed by me, Image(s) reviewed by me Assessment/Plan Assessment/Plan Right proximal ureteral calculus, 1 cm, (impacted stone) urology consult by Dr. Jaxon dwyer, consult placed to interventional radiologist for right nephrostomy tube Right moderate hydronephrosis Acute right flank pain Hypertension History of kidney stones Plan discussed with: Patient Date of Service: Dec 11, 2024 Billing Provider: KANG LEBLANC MD Common Visit Codes: [id number] INP/OBS CARE(HIGH) KANG LEBLANC MD Dec 11, 2024 14:50
[2024-12-11] MEDS: fentaNYL CITRATE 100 MCG/2 ML VL ONE (15:01)
[2024-12-11] MEDS: LIDOCAINE 2%HCL (LOCAL ANESTH.) INJ 20ML MDV ONE (15:01)
[2024-12-11] MEDS: MIDAZOLAM HCL 2MG/2ML 2ml VIAL (1mg/ml) ONE (15:01)
[2024-12-11] MEDS: IODIXANOL 320MG/ML 100ML BTL IV ONE (15:05)
[2024-12-11] MEDS: cefTRIAXone 1GM/50ML D5W 50 ML IV ONE (15:17)
[2024-12-11] MEDS: hydrALAZINE HCL 20 MG/ML VL IV PRN (16:40)
--- NOTE | 2024-12-11 17:07 | DVH ---
XY PERCUTANEOUS NEPHROSTOMY, HISTORY: Right nephrostomy tube placement for obstructive uropathy from stone. PROCEDURE: Informed consent was obtained. The patient was placed on the fluoroscopic table in a prone position and IV sedation administered. 1 gram of ceftriaxone was given. The right flank was prepped with chlorhexidine which was allowed to dry and draped in the usual sterile fashion. Time out was per formed. and the soft tissues infiltrated with 1% lidocaine local anesthetic. Utilizing ultrasound tino dance, a 21 gauge Accu Stick needle was advanced from a posterolateral approach into an inferior pole calyx, and a small amount of contrast was injected under fluoroscopy to confirm positioning. Over a mandril wire, exchange was made to a non-vascular access set, through which was advanced an 0.035 wir e. Following serial dilation, an 8.5 Kinyarwanda multipurpose nephrostomy catheter was placed with tip pig tailed within the renal pelvis. Position was confirmed with antegrade nephrostogram. The catheter was secured in place and connected to gravity drainage. A sterile dressing was applied. No immediate com plication was identified. DAP 259. FLUOROSCOPY TIME: 1.9 minutes. CONTRAST USED: 15 mL Isovue 300. SEDATION: Dr. Ed Babin was personally responsible for the administration of moderate sedation during the procedure performed, including the use of an independent trained observer who had no other duties during the procedure. The drugs utilized were IV fentanyl and versed (see nursing log for details). The total time of supervision by the attending physician was approximately 45 minutes. FINDINGS: Dilated right renal collecting system involving the calyces/renal pelvis/ureter to the leve l of the proximal ureter. New 8.5 [place]i nephrostomy tube via a posterior lower pole calyceal a ccess, with loop coiled within the renal pelvis. IMPRESSION: Right hydronephrosis due to obstructive proximal ureteral stone, status post placement of 8.5 Frenc h right percutaneous nephrostomy catheter. PLAN: Routine catheter care.
[2024-12-12] VITALS (7 sets, daily range): BP systolic 130–147; BP diastolic 84–92; PULSE 73–85; RESP 17–19; TEMP 97.8–99.9; O2SAT 95–97
[2024-12-12 06:47] LABS: Hematocrit 43.6 % (41.0-53.0); Hemoglobin 15.1 g/dL (13.5-17.5); Mean Corpuscular Hemoglobin 31.3 pg (28.0-32.0); Mean Corpuscular Volume 90.6 fL (80.0-100.0); Nucleated Red Blood Cells % 0.0 %
[2024-12-12 07:07] LABS: Alanine Aminotransferase 14 U/L (7-40); Alkaline Phosphatase 51 U/L (46-116); Anion Gap 9 (5-15); BUN/Creatinine Ratio 13.5 (10.0-20.0); Blood Urea Nitrogen 17 mg/dL (9-23); Calcium 9.8 mg/dL (8.7-10.4); Carbon Dioxide 25 mmol/L (20-31); Chloride 105 mmol/L (98-107); Potassium 3.8 mmol/L (3.5-5.1); Sodium 139 mmol/L (136-145)
[2024-12-12 07:08] LABS: Albumin 4.5 g/dL (3.2-4.8); Total Protein 7.1 g/dL (5.7-8.2)
[2024-12-12 07:09] LABS: Bilirubin, Total 1.0 mg/dL (0.2-1.0)
[2024-12-12 07:12] LABS: Glucose 114 mg/dL (74-106)
--- NOTE | 2024-12-12 10:08 | DVHPN2 ---
Reviewed: Care Plan, H&P, Labs, Medications, Previous Orders, Radiology Changes from previous H/P or p: No Changes Eyes: No Pain, No Vision change, No Conjunctivae inflammation, No Eyelid inflammation, No Other, No Redness ENT: No Ear pain, No Ear discharge, No Nose pain, No Nose discharge, No Nose congestion, No Mouth pain, No Mouth swelling, No Throat pain, No Throat swelling, No Other Cardiovascular: No Chest Pain, No Palpitations, No Orthopnea, No Paroxysmal Noc. Dyspnea, No Edema, No Lt Headedness, No Other Respiratory: No Cough, No Dry, No Shortness of breath, No SOB with excertion, No Wheezing, No Hemoptysis, No Pleuritic Pain, No Sputum, No Other Gastrointestinal: Nausea; No Vomiting; Abdominal Pain; No Diarrhea, No Constipation, No Melena, No Hematochezia, No Other Genitourinary: No Dysuria, No Frequency, No Incontinence, No Hematuria, No Retention; Other (Right flank pain) Musculoskeletal: No other, No neck pain, No shoulder pain, No arm pain, No back pain, No hand pain, No leg pain, No foot pain Skin: No Rash, No Lesions, No Jaundice, No Bruising, No Other Objective Vitals Vital Signs Date Time Temp Pulse Resp B/P (MAP) Pulse Ox O2 Delivery O2 Flow Rate FiO2 12/12/24 09:11 130/87 12/12/24 09:00 99.9 76 18 95 99.9 12/12/24 08:00 Room Air* 0 21 Intake/Output Intake and Output 12/12/24 07:00 Intake Total 300 ml Output Total 575 ml Balance -275 ml Intake Oral 300 ml Output Drainage Total 575 ml # Voids 1 Medications Current Medications Medications Dose Ordered Sig/Abi Route Start Time Stop Time Status Last Admin Dose Admin Amlodipine Besylate 10 mg DAILY PO 12/11/24 10:00 12/12/24 09:11 10 MG Hydralazine HCl 10 mg Q6HP PRN IV 12/11/24 08:15 12/11/24 16:40 10 MG Sodium Chloride 1,000 ml @ 60 mls/hr [id number] IV 12/11/24 08:15 12/12/24 01:12 60 MLS/HR Acetaminophen/ Hydrocodone Bitart 1 tab Q4HP PRN PO 12/11/24 08:15 Ondansetron HCl 4 mg Q4HP PRN IV 12/11/24 08:15 Docusate Sodium 100 mg BIDPRN PRN PO 12/11/24 08:15 Acetaminophen 650 mg Q6HP PRN PO 12/11/24 08:15 Morphine Sulfate 2 mg Q4HPRN PRN IV 12/11/24 08:15 Nitroglycerin 0.4 mg Q5MINP PRN SL 12/11/24 08:15 Morphine Sulfate 2 mg Q30M PRN IV 12/11/24 08:15 Laboratory Results Laboratory Tests 12/12/24 06:32 Chemistry Test 12/12/24 06:32 Albumin 4.5 g/dL (3.2-4.8) Calcium Level 9.8 mg/dL (8.7-10.4) Total Protein 7.1 g/dL (5.7-8.2) Coagulation Test 12/11/24 14:15 Prothrombin Time 11.0 sec (9.3-11.8) Prothrombin Time INR 1.04 (0.9-1.15) Activated Partial Thromboplast Time 26.0 SEC (24.5-34.5) LFT Test 12/12/24 06:32 Alanine Aminotransferase (ALT) 14 U/L (7-40) Alkaline Phosphatase 51 U/L (46-116) Aspartate Amino Transferase (AST) 22 U/L (13-40) Total Bilirubin 1.0 mg/dL (0.2-1.0) Urinalysis Test 12/11/24 04:50 Urine Color Light-yellow (Yellow) Urine Clarity Clear (Clear) Urine pH 5.5 (5.0-9.0) Urine Specific [place] 1.023 (1.001-1.035) Urine Protein Trace (Negative) H Urine Ketones Negative (Negative) Urine Blood Negative /uL (Negative) Urine Nitrite Negative (Negative) Urine Bilirubin Negative (Negative) Urine Urobilinogen Normal mg/dL (Negative) Urine Leukocyte Esterase Negative /uL (Negative) Urine RBC 3 /hpf (0 - 3) Urine Microscopic WBC < 1 /HPF (0-3) Urine Squamous Epithelial Cells None seen /hpf (<5) Urine Bacteria None seen /hpf (None Seen) Urine Mucus Few (None Seen) Urine Glucose Normal mg/dL (Normal) Labs and/or images reviewed: Labs reviewed by me, Image(s) reviewed by me Assessment/Plan Assessment/Plan Right proximal ureteral calculus, 1 cm, (impacted stone) urology consult by Dr. Coates appreciated, status post right nephrostomy tube placement by Radiologist Right moderate hydronephrosis Acute right flank pain Hypertension History of kidney stones Await further plan by urologist Plan discussed with: Patient My Orders Orders - KANG LEBLANC MD Procedure Category Date Status Time Percutaneous XY 12/11/24 Resulted Nephrostomy 15:55 Date of Service: Dec 12, 2024 Billing Provider: KANG LEBLANC MD Common Visit Codes: [id number] INP/OBS CARE(HIGH) KANG LEBLANC MD Dec 12, 2024 10:08
--- NOTE | 2024-12-12 16:25 | DVHPN2 ---
Progress Note - Dictate Date Seen: Dec 12, 2024 Has the PT tested + for MRSA If YES, has PT been informed?: No Medical Necessity Reason Pt with a Central, PICC or Fol: No Medical Necessity Reason Patient has an obstructing right proximal ureteral calculus measuring 1 cm that is impacted. He has a right percutaneous nephrostomy tube placement per Interventional Radiology Subjective Patient is doing well and tolerating the nephrostomy tube vital signs Vital Sign Date Time Temp Pulse Resp B/P (MAP) Pulse Ox O2 Delivery O2 Flow Rate FiO2 12/12/24 09:11 130/87 12/12/24 09:00 99.9 76 18 95 99.9 12/12/24 08:00 Room Air* 0 21 Total Intake and Output 12/11/24 12/11/24 12/12/24 15:00 23:00 07:00 Intake Total 0 ml 300 ml Output Total 575 ml Balance 0 ml -275 ml medications Current Medications Medications Dose Ordered Sig/Abi Route Start Time Stop Time Status Last Admin Dose Admin Amlodipine Besylate 10 mg DAILY PO 12/11/24 10:00 12/12/24 09:11 10 MG Hydralazine HCl 10 mg Q6HP PRN IV 12/11/24 08:15 12/11/24 16:40 10 MG Sodium Chloride 1,000 ml @ 60 mls/hr [id number] IV 12/11/24 08:15 12/12/24 01:12 60 MLS/HR Acetaminophen/ Hydrocodone Bitart 1 tab Q4HP PRN PO 12/11/24 08:15 Ondansetron HCl 4 mg Q4HP PRN IV 12/11/24 08:15 Docusate Sodium 100 mg BIDPRN PRN PO 12/11/24 08:15 Acetaminophen 650 mg Q6HP PRN PO 12/11/24 08:15 Morphine Sulfate 2 mg Q4HPRN PRN IV 12/11/24 08:15 Nitroglycerin 0.4 mg Q5MINP PRN SL 12/11/24 08:15 Morphine Sulfate 2 mg Q30M PRN IV 12/11/24 08:15 objective Right nephrostomy tube in place with slightly heme tinged urine noted laboratory and microbiology Laboratory Tests 12/12/24 06:32 Test 12/12/24 06:32 Range/Units Serum Glucose 114 H 74-106 mg/dL Problem List Right proximal ureteral calculus Right hydronephrosis secondary to impacted ureteral stone Assessment/Plan Outpatient ESWL to be arranged Plan discussed with: Patient, Spouse WILLIAM CHE MD Dec 12, 2024 16:25
[2024-12-13 01:00] VITALS: BP 145/94; PULSE 71; RESP 18; TEMP 97.4; O2SAT 97
[2024-12-13 05:00] VITALS: BP 118/72; PULSE 66; RESP 18; TEMP 97.8; O2SAT 95
[2024-12-13 08:30] VITALS: O2SAT 9
[2024-12-13 09:00] VITALS: BP 141/87; PULSE 84; RESP 17; TEMP 98.3; O2SAT 95
[2024-12-13] MEDS ORDERED: HYDR-4902 PO (10:01)
--- NOTE | 2024-12-13 10:12 | DVHPN2 ---
Reviewed: Care Plan, H&P, Labs, Medications, Previous Orders, Radiology Changes from previous H/P or p: No Changes Eyes: No Pain, No Vision change, No Conjunctivae inflammation, No Eyelid inflammation, No Other, No Redness ENT: No Ear pain, No Ear discharge, No Nose pain, No Nose discharge, No Nose congestion, No Mouth pain, No Mouth swelling, No Throat pain, No Throat swelling, No Other Cardiovascular: No Chest Pain, No Palpitations, No Orthopnea, No Paroxysmal Noc. Dyspnea, No Edema, No Lt Headedness, No Other Respiratory: No Cough, No Dry, No Shortness of breath, No SOB with excertion, No Wheezing, No Hemoptysis, No Pleuritic Pain, No Sputum, No Other Gastrointestinal: Nausea; No Vomiting; Abdominal Pain; No Diarrhea, No Constipation, No Melena, No Hematochezia, No Other Genitourinary: No Dysuria, No Frequency, No Incontinence, No Hematuria, No Retention; Other (Right flank pain) Musculoskeletal: No other, No neck pain, No shoulder pain, No arm pain, No back pain, No hand pain, No leg pain, No foot pain Skin: No Rash, No Lesions, No Jaundice, No Bruising, No Other Objective Vitals Vital Signs Date Time Temp Pulse Resp B/P (MAP) Pulse Ox O2 Delivery O2 Flow Rate FiO2 12/13/24 08:45 141/87 12/13/24 08:30 9 Room Air* 0 21 12/13/24 05:00 97.8 66 18 97.8 Intake/Output Intake and Output 12/13/24 07:00 Intake Total 4320 ml Output Total 600 ml Balance 3720 ml Intake Oral 3320 ml IV Total 1000 ml Output Drainage Total 600 ml # Voids 8 # Bowel Movements 1 Medications Current Medications Medications Dose Ordered Sig/Abi Route Start Time Stop Time Status Last Admin Dose Admin Amlodipine Besylate 10 mg DAILY PO 12/11/24 10:00 12/13/24 08:45 10 MG Hydralazine HCl 10 mg Q6HP PRN IV 12/11/24 08:15 12/11/24 16:40 10 MG Sodium Chloride 1,000 ml @ 60 mls/hr [id number] IV 12/11/24 08:15 12/13/24 06:05 60 MLS/HR Acetaminophen/ Hydrocodone Bitart 1 tab Q4HP PRN PO 12/11/24 08:15 Ondansetron HCl 4 mg Q4HP PRN IV 12/11/24 08:15 Docusate Sodium 100 mg BIDPRN PRN PO 12/11/24 08:15 Acetaminophen 650 mg Q6HP PRN PO 12/11/24 08:15 Morphine Sulfate 2 mg Q4HPRN PRN IV 12/11/24 08:15 Nitroglycerin 0.4 mg Q5MINP PRN SL 12/11/24 08:15 Morphine Sulfate 2 mg Q30M PRN IV 12/11/24 08:15 Laboratory Results Laboratory Tests 12/12/24 06:32 Urinalysis Test 12/11/24 04:50 Urine Color Light-yellow (Yellow) Urine Clarity Clear (Clear) Urine pH 5.5 (5.0-9.0) Urine Specific [place] 1.023 (1.001-1.035) Urine Protein Trace (Negative) H Urine Ketones Negative (Negative) Urine Blood Negative /uL (Negative) Urine Nitrite Negative (Negative) Urine Bilirubin Negative (Negative) Urine Urobilinogen Normal mg/dL (Negative) Urine Leukocyte Esterase Negative /uL (Negative) Urine RBC 3 /hpf (0 - 3) Urine Microscopic WBC < 1 /HPF (0-3) Urine Squamous Epithelial Cells None seen /hpf (<5) Urine Bacteria None seen /hpf (None Seen) Urine Mucus Few (None Seen) Urine Glucose Normal mg/dL (Normal) Labs and/or images reviewed: Labs reviewed by me, Image(s) reviewed by me Assessment/Plan Assessment/Plan Right proximal ureteral calculus, 1 cm, (impacted stone) urology consult by Dr. Coates appreciated, status post right nephrostomy tube placement by Radiologist, ESWL as an outpatient per Dr. Coates and cleared for discharge Right moderate hydronephrosis Acute right flank pain Hypertension History of kidney stones Discussed with the patient and he is willing to be discharged Plan discussed with: Patient Date of Service: Dec 13, 2024 Billing Provider: KANG LEBLANC MD Common Visit Codes: [id number] INP/OBS CARE(HIGH) KANG LEBLANC MD Dec 13, 2024 10:12
--- NOTE | 2024-12-13 10:17 | DVHDS2 ---
Discharge Summary Date of Admission Dec 11, 2024 at 08:14 Date of Discharge: Dec 13, 2024 Admitting Diagnosis Right flank pain Wounds: Right nephrostomy tube Labs/Diagnostic Data: Laboratory Results Test 12/12/24 06:32 12/11/24 14:15 12/11/24 05:37 12/11/24 04:50 White Blood Count 6.9 10^3/uL (4.4-10.8) Red Blood Count 4.81 10^6/uL (4.5-5.90) Hemoglobin 15.1 g/dL (13.5-17.5) Hematocrit 43.6 % (41.0-53.0) Mean Corpuscular Volume 90.6 fL (80.0-100.0) Mean Corpuscular Hemoglobin 31.3 pg (28.0-32.0) Mean Corpuscular Hemoglobin Concent 34.6 g/dL (32.0-36.0) Red Cell Distribution Width 13.4 % (11.8-14.3) Platelet Count 200 10^3/uL (140-450) Mean Platelet Volume 8.4 fL (6.9-10.8) Neutrophils (%) (Auto) 61.0 % (37.0-80.0) Lymphocytes (%) (Auto) 26.3 % (10.0-50.0) Monocytes (%) (Auto) 10.3 % (0.0-12.0) Eosinophils (%) (Auto) 2.2 % (0.0-7.0) Basophils (%) (Auto) 0.2 % (0.0-2.0) Neutrophils # (Auto) 4.2 10 ^3/uL (1.6-8.6) Lymphocytes # (Auto) 1.8 10 ^3/uL (0.4-5.4) Monocytes # (Auto) 0.7 10 ^3/uL (0-1.3) Eosinophils # (Auto) 0.2 10 ^3/uL (0-0.8) Basophils # (Auto) 0 10 ^3/uL (0-0.2) Nucleated Red Blood Cells 0.0 % Sodium Level 139 mmol/L (136-145) Potassium Level 3.8 mmol/L (3.5-5.1) Chloride Level 105 mmol/L (98-107) Carbon Dioxide Level 25 mmol/L (20-31) Anion Gap 9 (5-15) Blood Urea Nitrogen 17 mg/dL (9-23) Creatinine 1.26 mg/dL (0.700-1.30) Glomerular Filtration Rate Calc 68 mL/min (>90) BUN/Creatinine Ratio 13.5 (10.0-20.0) Serum Glucose 114 mg/dL (74-106) Calcium Level 9.8 mg/dL (8.7-10.4) Total Bilirubin 1.0 mg/dL (0.2-1.0) Aspartate Amino Transferase (AST) 22 U/L (13-40) Alanine Aminotransferase (ALT) 14 U/L (7-40) Alkaline Phosphatase 51 U/L (46-116) Total Protein 7.1 g/dL (5.7-8.2) Albumin 4.5 g/dL (3.2-4.8) Prothrombin Time 11.0 sec (9.3-11.8) Prothrombin Time INR 1.04 (0.9-1.15) Activated Partial Thromboplast Time 26.0 SEC (24.5-34.5) Hemoglobin A1c 6.1 % A1C (<5.7) Urine Color Light-yellow (Yellow) Urine Clarity Clear (Clear) Urine pH 5.5 (5.0-9.0) Urine Specific [place] 1.023 (1.001-1.035) Urine Protein Trace (Negative) Urine Ketones Negative (Negative) Urine Blood Negative /uL (Negative) Urine Nitrite Negative (Negative) Urine Bilirubin Negative (Negative) Urine Urobilinogen Normal mg/dL (Negative) Urine Leukocyte Esterase Negative /uL (Negative) Urine RBC 3 /hpf (0 - 3) Urine Microscopic WBC < 1 /HPF (0-3) Urine Squamous Epithelial Cells None seen /hpf (<5) Urine Bacteria None seen /hpf (None Seen) Urine Mucus Few (None Seen) Urine Glucose Normal mg/dL (Normal) Other Laboratory Tests 12/12/24 06:32 Brief Hx & Hospital Course: 54-year-old male came in right flank pain found to have 1 mm right proximal ureteral stone. Underwent right nephrostomy tube placement by the radiologist seen by Urology Dr. Coates advised outpatient ESWL. Discharged home on [place]. He will follow up with the Urology for ESWL and nephrostomy tube care. Consults/Reason for consult Urology Dr. Coates Radiology Dr. Babin Operations or Procedures Right nephrostomy tube placed CT abdomen pelvis without contrast Condition at Discharge: Fair Final Diagnosis/Problems List Right proximal ureteral calculus, 1 cm, (impacted stone) urology consult by Dr. Coates appreciated, status post right nephrostomy tube placement by Radiologist, ESWL as an outpatient per Dr. Coates and cleared for discharge Right moderate hydronephrosis Acute right flank pain Hypertension History of kidney stones Discharge Disposition: Home Discharge Instruct/Medications Diet: Cardiac 2g Na,low cholest Activity: Light activity Follow Up/Referral: Follow up with the Urology Dr. Coates in 10 days for ESWL and for nephrostomy tube care Medications: [place] Transmitted to vital care Scheduled Erythromycin (Erythromycin), 1 APPLIC OP TID Labetalol Hcl (Labetalol Hcl), 1 TAB PO BID, (Reported) Scheduled PRN Hydrocodone-Acetaminophen (Hydrocodone Bitartrate/AC 5-325 mg), 1 TAB PO QID PRN Miscellaneous Medications Amlodipine Besylate (Amlodipine Besylate), 1 TAB PO, (Reported) 35 (Time taken for discharge summary 35 mts) Discharge Statement: "Patient was advised to return to the ER or call 911 if any headaches, dizziness, shortness of breath, chest pain, abdominal pain, bleeding, fevers, or worsening of medical condition. Patient was counseled about treatment plan, medications, possible side effects, patientverbalized understanding. All questions were answered to the best of my ability. This discharge took greater then 30 minutes in planning, reviewing documentation, counseling the patient, and discussing with other team members." ASSESSMENT ASSESSMENT Hospital Course Improved Assessment Right proximal ureteral calculus, 1 cm, (impacted stone) urology consult by Dr. Coates appreciated, status post right nephrostomy tube placement by Radiologist, ESWL as an outpatient per Dr. Coates and cleared for discharge Right moderate hydronephrosis Acute right flank pain Hypertension History of kidney stones Date of Service: Dec 13, 2024 Billing Provider: KANG LEBLANC MD Common Visit Codes: [id number] DISCH DAY >30min KANG LEBLANC MD Dec 13, 2024 10:17
[2024-12-13 10:57] VITALS: BP 146/91; PULSE 87; RESP 17; TEMP 98; O2SAT 97
[2024-12-13 12:15] VITALS: BP 146/91; PULSE 87; RESP 17; TEMP 98; O2SAT 97
== END 2024-12-13 13:21 | disposition home or self-care (01) | DRG 694 ==
LOC: ER 04:22 → OVERFLOW 08:14 → CENTRAL 17:48
PROVIDERS: ADMIT Family Medicine; ATTEND Family Medicine
PROC: 0T9330Z Drainage of Right Kidney Pelvis with Drainage Device, Percutaneous Approach (ICD-10-PCS; principal; 2024-12-11)
PROC: BT111ZZ Fluoroscopy of Right Kidney using Low Osmolar Contrast (ICD-10-PCS; 2024-12-11)
DX: N13.2 Hydronephrosis with renal and ureteral calculous obstruction (principal); I16.0 Hypertensive urgency; K57.30 Diverticulosis of large intestine without perforation or abscess without bleeding; Z79.2 Long term (current) use of antibiotics; Z79.899 Other long term (current) drug therapy; I10 Essential (primary) hypertension
CPT/HCPCS: 36415; 50432; 74176; 74425; 76942; 80048; 80053; 81001; 83036; 85025; 85610; 85730; 96365; 96375; 99152; G0378; J1885; J2250; J2405; Q9967

== ENCOUNTER → 2025-02-20 | Day surgery (SDC) | payer OTHER ==
[2025-02-15 13:58] LABS: Hematocrit 39.8 % (41.0-53.0); Hemoglobin 13.6 g/dL (13.5-17.5); Mean Corpuscular Hemoglobin 30.8 pg (28.0-32.0); Mean Corpuscular Volume 89.8 fL (80.0-100.0); Nucleated Red Blood Cells % 0.0 %
[2025-02-15 14:01] LABS: Urine Budding Yeast OCCASIONAL /hpf (None Seen); Urine Protein, UAD 1+ (Negative); Urine WBC Clumps PRESENT /hpf (None Seen)
[2025-02-15 14:13] LABS: INR 1.04 (0.9-1.15); Partial Thromboplastin Time 25.6 SEC (24.5-34.5); Prothrombin Time 11.0 sec (9.3-11.8)
[2025-02-15 14:36] LABS: Alanine Aminotransferase 19 U/L (7-40); Alkaline Phosphatase 55 U/L (46-116); Calcium 9.6 mg/dL (8.7-10.4); Carbon Dioxide 26 mmol/L (20-31); Chloride 105 mmol/L (98-107)
[2025-02-15 14:37] LABS: Albumin 4.7 g/dL (3.2-4.8); Anion Gap 11 (5-15); BUN/Creatinine Ratio 15.8 (10.0-20.0); Bilirubin, Total 0.6 mg/dL (0.2-1.0); Blood Urea Nitrogen 18 mg/dL (9-23); Potassium 4.5 mmol/L (3.5-5.1); Sodium 142 mmol/L (136-145); Total Protein 8.0 g/dL (5.7-8.2)
[2025-02-15 14:38] LABS: Glucose 107 mg/dL (74-106)
[~2025-02-20] VITALS: Ht 177.8 cm; Wt 109.3 kg
[~2025-02-20] MED LIST changes: +AMLO1TAB23 PO; -ERY05OO OP; +GLYCOPYRROLATE 0.2 MG/ML 1ML VIAL ONE; +KETOROLAC TROMETH 30 MG/ML 1ML VIAL ONE; +LABE100T7 PO; +LIDOCAINE 2% (LOCAL ANESTH.) PF 5ml SDV ONE; +ONDANSETRON HCL 4 MG/2 ML VIAL ONE; +PROPOFOL 10 MG/ML 20 ML IV ONE
--- NOTE | 2025-02-20 08:09 | DVHPN2 ---
Progress Note - Dictate Date Seen: Feb 20, 2025 Medical Necessity Reason Pt with a Central, PICC or Fol: No Medical Necessity Reason The patient has a right percutaneous nephrostomy tube in place for the management of 1 cm right proximal ureteral stone with moderate hydronephrosis placed on 12/11/24. Patient was scheduled for right ESWL today but was found to have untreated Klebsiella UTI. The surgery is canceled and he will be placed on ciprofloxacin 500 mg p.o. b.i.d. x2 weeks. We will proceed with rescheduling on 03/06 2025. laboratory and microbiology Laboratory Tests 02/15/25 13:49 Test 02/15/25 13:49 Range/Units Serum Glucose 107 H 74-106 mg/dL Plan discussed with: Patient, Spouse WILLIAM CHE MD Feb 20, 2025 08:09
== END | disposition home or self-care (01) ==
LOC: SUR 07:16
PROVIDERS: ATTEND Urology
DX: N13.2 Hydronephrosis with renal and ureteral calculous obstruction (principal); Z53.8 Procedure and treatment not carried out for other reasons; B96.1 Klebsiella pneumoniae [K. pneumoniae] as the cause of diseases classified elsewhere; N39.0 Urinary tract infection, site not specified
CPT/HCPCS: 36415; 80053; 81001; 85025; 85610; 85730; 87086; 87088; 87186; J2003; J1100; J1885; J2405; J2704

== ENCOUNTER → 2025-03-02 | Outpatient (CLI) | payer OTHER ==
[~2025-03-02] MED LIST changes: -GLYCOPYRROLATE 0.2 MG/ML 1ML VIAL ONE; -KETOROLAC TROMETH 30 MG/ML 1ML VIAL ONE; -LIDOCAINE 2% (LOCAL ANESTH.) PF 5ml SDV ONE; -ONDANSETRON HCL 4 MG/2 ML VIAL ONE; -PROPOFOL 10 MG/ML 20 ML IV ONE
[2025-03-02 13:38] LABS: Urine Protein, UAD TRACE (Negative)
== END | disposition home or self-care (01) ==
LOC: LAB 13:18
PROVIDERS: ATTEND Urology
DX: N39.0 Urinary tract infection, site not specified (principal)
CPT/HCPCS: 81001; 87086

== ENCOUNTER 2025-03-13 09:10 | Day surgery (SDC) | payer OTHER ==
[2025-03-12 13:56] LABS: Hematocrit 41.3 % (41.0-53.0); Hemoglobin 14.1 g/dL (13.5-17.5); Mean Corpuscular Hemoglobin 31.0 pg (28.0-32.0); Mean Corpuscular Volume 90.6 fL (80.0-100.0); Nucleated Red Blood Cells % 0.0 %
[2025-03-12 14:10] LABS: INR 1.03 (0.9-1.15); Partial Thromboplastin Time 26.2 SEC (24.5-34.5); Prothrombin Time 10.9 sec (9.3-11.8)
[2025-03-12 14:41] LABS: Urine Protein, UAD 1+ (Negative)
[2025-03-12 14:46] LABS: Alanine Aminotransferase 17 U/L (7-40); Albumin 4.8 g/dL (3.2-4.8); Alkaline Phosphatase 50 U/L (46-116); Anion Gap 10 (5-15); BUN/Creatinine Ratio 12.7 (10.0-20.0); Bilirubin, Total 0.9 mg/dL (0.2-1.0); Blood Urea Nitrogen 14 mg/dL (9-23); Calcium 9.9 mg/dL (8.7-10.4); Carbon Dioxide 28 mmol/L (20-31); Chloride 104 mmol/L (98-107); Glucose 119 mg/dL (74-106); Potassium 4.7 mmol/L (3.5-5.1); Sodium 142 mmol/L (136-145); Total Protein 8.0 g/dL (5.7-8.2)
[~2025-03-13] VITALS: Ht 177.8 cm; Wt 109.3 kg
[2025-03-13] MEDS ORDERED: HYDROmorphone HCL 2 MG/ML VL/or syr IV PRN ×2 (12:45)
[2025-03-13] MEDS ORDERED: MORPHINE SULFATE INJ 2 MG/ml SYRG IV PRN (12:45)
[2025-03-13] MEDS ORDERED: MORPHINE SULFATE 4 MG/ML SYR/VIAL IV PRN (12:45)
[2025-03-13] MEDS ORDERED: METOCLOPRAMIDE HCL 5MG/ml INJ 2ml VIAL IV PRN (12:45)
[2025-03-13] MEDS ORDERED: KETOROLAC TROMETH 30 MG/ML 1ML VIAL IV ONE (12:45)
[2025-03-13] MEDS ORDERED: fentaNYL CITRATE 100 MCG/2 ML VL ONE (12:53)
[2025-03-13] MEDS ORDERED: SODIUM CHLORIDE LOCK 10 ML ONE (12:54)
[2025-03-13] MEDS ORDERED: PROPOFOL 10 MG/ML 20 ML IV ONE (12:54)
[2025-03-13] MEDS ORDERED: MIDAZOLAM HCL 2MG/2ML 2ml VIAL (1mg/ml) ONE (12:54)
[2025-03-13] MEDS ORDERED: ONDANSETRON HCL 4 MG/2 ML VIAL ONE (12:54)
[2025-03-13] MEDS ORDERED: LIDOCAINE 1% INJ PF 5ML AMP ONE (12:54)
[2025-03-13] MEDS: CIPROFLOXACIN 400MG/200ML 200 ML IV ONE (13:06)
--- NOTE | 2025-03-13 14:04 | DVHNC2 ---
Procedure - OPERATIVE REPORT Pre-op. Diagnosis: 9 mm right proximal ureteral calculus right percutaneous nephrostomy tube, in-situ Post-op. Diagnosis: Same as pre-op diagnosis Operation: Extracorporeal Shockwave Lithotripsy right nephrostogram Anesthesia: General Indications: Patient was found to have symptomatic Urolithiasis. Patient is here to undergo ESWL therapy. Informed Consent: The procedure was explained to the patient. It's risks include but not limited to infection, bleeding, and damage to the kidney. Patient fully understood and signed the consent. Other options such as watchful waiting, Ureteroscopy, Percutaneous surgery and open surgery were also discussed. Details of Procedure: Under satisfactory anesthesia, the patient was positioned on the lithotripsy table. Using fluoroscopy the stone was localized. Starting at low energy levels, shockwave treatment was commenced. The energy level was gradually increased and stone was fragmented. Once the treatment was completed, patient was then taken off the lithotripsy table and sent to recovery room in stable condition. Specimens: None Complications: None Findings: Stone Laterality: right proximal ureteral calculus, 9 mm Shocks Delivered: 3000 Max Power settin-9 Fragmentation Quality: Well right percutaneous nephrostomy tube is closed Notes: right nephrostomy tube is closed WILLIAM CHE MD Mar 13, 2025 14:03
--- NOTE | 2025-03-13 14:05 | DVHDS2 ---
New Physician D'charge PN Admitting Diagnosis Admitting Diagnosis Right proximal ureteral calculus Right percutaneous nephrostomy tube in-situ Discharge Diagnosis Same Operations or Procedures Right extracorporeal shockwave lithotripsy Right nephrostogram Reason(s) For Hospitalization Surgery Treatment Plan Discharge Condition of Discharge Good Disposition Home Discharge Instructions Diet: Regular Activity: Light activity Activity comment: Nephrostomy tube closed Medications: Given Follow Up Care Follow Up/Referral: Return to clinic in one week with [facility] Discharge Statement: "Patient was advised to return to the ER or call 911 if any headaches, dizziness, shortness of breath, chest pain, abdominal pain, bleeding, fevers, or worsening of medical condition. Patient was counseled about treatment plan, medications, possible side effects, patientverbalized understanding. All questions were answered to the best of my ability. This discharge took greater then 30 minutes in planning, reviewing documentation, counseling the patient, and discussing with other team members." WILLIAM CHE MD Mar 13, 2025 14:05
[2025-03-13 14:08] VITALS: PULSE 89; RESP 19; TEMP 98.4; O2SAT 99
[2025-03-13 14:53] VITALS: BP 137/83; PULSE 77; RESP 12; O2SAT 95
[2025-03-13] MEDS: IOHEXOL 300 MG/ML 100ML BOTTLE IJ ONE (15:21)
== END 2025-03-13 15:15 | disposition home or self-care (01) ==
LOC: SUR 09:10
PROVIDERS: ATTEND Urology
DX: N13.2 Hydronephrosis with renal and ureteral calculous obstruction (principal); I10 Essential (primary) hypertension; E66.9 Obesity, unspecified; Z68.36 Body mass index [BMI] 36.0-36.9, adult; Z79.899 Other long term (current) drug therapy; Z98.890 Other specified postprocedural states
CPT/HCPCS: 36415; 50590; 80053; 81001; 85025; 85610; 85730; 87086; 87088; 87186; J0744; J2250; J2405; J2704; J3010; J7030; Q9967

== ENCOUNTER 2025-05-10 10:47 | Outpatient (CLI) | payer OTHER ==
[2025-05-10 12:21] LABS: Hematocrit 32.6 % (41.0-53.0); Hemoglobin 11.1 g/dL (13.5-17.5); Mean Corpuscular Hemoglobin 30.5 pg (28.0-32.0); Mean Corpuscular Volume 89.5 fL (80.0-100.0); Nucleated Red Blood Cells % 0.1 %
[2025-05-10 12:47] LABS: Albumin 4.2 g/dL (3.2-4.8); Anion Gap 12 (5-15); BUN/Creatinine Ratio 17.2 (10.0-20.0); Calcium 9.4 mg/dL (8.7-10.4); Carbon Dioxide 23 mmol/L (20-31); Potassium 4.2 mmol/L (3.5-5.1); Total Protein 7.7 g/dL (5.7-8.2)
[2025-05-10 12:49] LABS: Alanine Aminotransferase 56 U/L (7-40); Alkaline Phosphatase 178 U/L (46-116); Bilirubin, Total 1.6 mg/dL (0.2-1.0); Blood Urea Nitrogen 35 mg/dL (9-23); Chloride 97 mmol/L (98-107); Glucose 151 mg/dL (74-106); Sodium 132 mmol/L (136-145)
== END 2025-05-10 17:00 | disposition home or self-care (01) ==
LOC: LAB 10:47
PROVIDERS: ATTEND Internal Medicine
DX: N13.2 Hydronephrosis with renal and ureteral calculous obstruction (principal)
CPT/HCPCS: 36415; 80053; 85025; 85652; 87040; 87086

== ENCOUNTER 2025-05-10 13:41 | Inpatient (IN) | payer OTHER ==
[~2025-05-10] VITALS: Ht 175.3 cm; Wt 103.7 kg
--- NOTE | 2025-05-10 14:24 | ED.PDOC ---
General HPI Comments A 55 YEAR OLD MALE PRESENTS TO THE ED WITH COMPLAINT OF RIGHT FLANK PAIN. PATIENT STATES HE HAS BEEN EXPERIENCING RIGHT FLANK PAIN THAT RADIATES TO HIS RIGHT LOWER ABDOMEN FOR THE PAST 1 WEEK. PATIENT REPORTS HE HAD A CT SCAN DONE ON 04/24/25 WHICH REVEALED MILD RIGHT HYDROURETERONEPHROSIS WITH PERINEPHRIC EDEMA AND STRANDING AND A 9 MM NONOBSTRUCTING RIGHT RENAL CALCULUS. PATIENT REPORTS HE FOLLOWED UP WITH HIS UROLOGIST DR. VIDES TODAY WHERE AN ULTRASOUND ON HIS KIDNEYS WAS DONE WHICH REVEALED MODERATE RIGHT HYDRONEPHROSIS. PATIENT STATES HE WAS INSTRUCTED BY HIS PRIMARY CARE PHYSICIAN TO COME TO THE ED TO BE ADMITTED FOR FURTHER TREATMENT OF HIS RENAL STONE. PATIENT DENIES FEVER, CHILLS, SHORTNESS OF BREATH, CHEST PAIN, NAUSEA, VOMITING, HEADACHE, OR OTHER COMPLAINTS. NO OTHER SYMPTOMS OR MODIFYING FACTORS AT THIS TIME. PATIENT IS ALERT, ORIENTED X 4, AND HAS STEADY GAIT. Chief Complaint: Flank Pain Time Seen by MD: 13:52 Primary Care Provider: PEEWEE Reviewed notes: Nurses Notes, Medications, Allergies Allergies: Coded Allergies: NO KNOWN ALLERGIES (Unverified , 03/27/24) Home Meds Reported Medications Labetalol Hcl (Labetalol Hcl) 100 Mg Tab, 1 TAB PO BID 12/11/24 Amlodipine Besylate (Amlodipine Besylate) 10 Mg Tab, 1 TAB PO 12/11/24 Information Source: Patient Mode of Arrival: Ambulatory Severity: Moderate Inability to void: None Timing: Days Duration: Since onset, Days Prehospital treatment: None Onset: Spontaneous Symptoms: Frequency, Urgency, Other (RIGHT FLANK PAIN) History of: Kidney stone, None Location: (R) Flank Penile discharge: None Modifying factors: None associated signs and symptoms: Abdominal Pain Past Medical History PAST MEDICAL HISTORY: HTN, Kidney Stones Surgical History: Denies all surgeries Family History Family History: Reviewed,noncontributory to illness Social History Smoker: Non-Smoker Alcohol: Denies ETOH Use Drugs: Denies Drug Use Lives In: Home Constitutional: denies: chills, diaphoresis, fatigue, fever, malaise, sweats, weakness, others EENTM: denies: blurred vision, double vision, ear bleeding, ear discharge, ear drainage, ear pain, ear ringing, eye pain, eye redness, hearing loss, mouth pain, mouth swelling, nasal discharge, nose bleeding, nose congestion, nose pain, photophobia, tearing, throat pain, throat swelling, voice changes, others Respiratory: denies: cough, hemoptysis, orthopnea, SOB at rest, shortness of breath, SOB with excertion, stridor, wheezing, others Cardiovascular: denies: chest pain, dizzy spells, diaphoresis, Dyspnea on exertion, edema, irregular heart beat, left arm pain, lightheadedness, palpitations, PND, syncope, others Gastrointestinal: reports: abdominal pain; denies: abdomen distended, blood streaked bowels, constipated, diarrhea, dysphagia, difficulty swallowing, hematemesis, melena, nausea, poor appetite, poor fluid intake, rectal bleeding, rectal pain, vomiting, others Genitourinary: reports: flank pain, frequency; denies: burning, dysuria, hematuria, incontinence, penile discharge, penile sore, pain, testicle pain, testicle swelling, urgency, others Neurological: denies: dizziness, fainting, headache, left sided numbness, left sided weakness, numbness, paresthesia, pre-existing deficit, right sided numbness, right sided weakness, seizure, speech problems, tingling, tremors, we akness, others Musculoskeletal: denies: back pain, gout, joint pain, joint swelling, muscle pain, muscle stiffness, neck pain, others Integumetry: denies: bruises, change in color, change in hair/nails, dryness, laceration, lesions, lumps, rash, wounds, others Allergic/Immunocompromised: denies: Difficulty Healing, Frequent Infections, Hives, Itching, others Hematologic/Lymphatic: denies: anemia, blood clots, easy bleeding, easy bruising, swollen glands, others Endocrine: denies: excessive hunger, excessive sweating, excessive thirst, excessive urination, flushing, intolerance to cold, intolerance to heat, unexplained weight gain, unexplained weight loss, others Psychiatric: denies: anxiety, bipolar disorder, depression, hopeless, panic disorder, schizophrenia, sleepless, suicidal, others All Other Systems: Reviewed and Negative Physical Exam General Appearance: No Apparent Distress, Normal HEENT: Normal ENT Inspection, PERRL/EOMI, Pharynx Normal, TMs Normal Neck: Full Range of Motion, Non-Tender, Normal, Normal Inspection Respiratory: Chest Non-Tender, Lungs Clear, No Accessory Muscle Use, No Respiratory Distress, Normal Breath Sounds Cardiovascular: No Edema, No JVD, No Murmur, No Gallop, Normal Peripheral Pulses, Regular Rate/Rhythm Breast Exam: Deferred Gastrointestinal: No Organomegaly, No Pulsatile Mass, Normal Bowel Sounds, RLQ, Soft, Tenderness (RIGHT FLANK AND RIGHT LOWER ABD, NO GUARDING AND REBOUND TENDERNESS. ) Genitalia: Deferred Pelvic: Deferred Rectal: Deferred Extremities: No calf tenderness, Normal capillary refill, Normal inspection, Normal range of motion, Non-tender, No pedal edema Musculoskeletal : Apperance: Normal Neurologic: Alert, platform consultant II-XII nml as Tested, No Motor Deficits, Normal Affect, Normal Mood, No Sensory Deficits Cerebellar Function: Normal Reflexes: Normal Skin: Dry, Normal Color, Warm Peripheral Pulses: 2+ carotid (R), 2+ carotid (L) Lymphatic: No Adenopathy Was a procedure done? Was a procedure done?: No EKG EKG : Pulse Rate (adult): 108 [place]: Normal Block: None Hypertrophy: None ST: Normal Comments SINUS TACHYCARDIA Differential Diagnosis Kidney stone (Female): N/A Kidney stone (Male): Renal failure, Strain, Urinary obstruction, Urolithiasis, Urinary tract infection Penile/Scrotal: N/A Urinary Problem (Male): Plelonephritis, Urethritis, Urolithiasis, N/A Urinary Problem (Female): N/A X-Ray, Labs, Meds, VS Vital Signs Date Time Temp Pulse Resp B/P (MAP) Pulse Ox O2 Delivery O2 Flow Rate FiO2 05/10/25 15:34 108 05/10/25 14:01 99.6 113 18 139/73 (95) 95 99.6 05/10/25 13:50 108 05/10/25 13:43 99.3 118 18 141/76 95 99.3 Lab Test 05/10/25 15:21 05/10/25 14:24 05/10/25 13:56 Range/Units Lactic Acid Level Pending White Blood Count 12.8 H 4.4-10.8 10^3/uL Red Blood Count 3.63 L 4.5-5.90 10^6/uL Hemoglobin 10.9 L 13.5-17.5 g/dL Hematocrit 32.0 L 41.0-53.0 % Mean Corpuscular Volume 88.0 80.0-100.0 fL Mean Corpuscular Hemoglobin 30.0 28.0-32.0 pg Mean Corpuscular Hemoglobin Concent 34.1 32.0-36.0 g/dL Red Cell Distribution Width 15.1 H 11.8-14.3 % Platelet Count 267 140-450 10^3/uL Mean Platelet Volume 8.1 6.9-10.8 fL Neutrophils (%) (Auto) 84.9 H 37.0-80.0 % Lymphocytes (%) (Auto) 7.5 L 10.0-50.0 % Monocytes (%) (Auto) 7.3 0.0-12.0 % Eosinophils (%) (Auto) 0.1 0.0-7.0 % Basophils (%) (Auto) 0.2 0.0-2.0 % Neutrophils # (Auto) 10.9 H 1.6-8.6 10 ^3/uL Lymphocytes # (Auto) 1.0 0.4-5.4 10 ^3/uL Monocytes # (Auto) 0.9 0-1.3 10 ^3/uL Eosinophils # (Auto) 0 0-0.8 10 ^3/uL Basophils # (Auto) 0 0-0.2 10 ^3/uL Nucleated Red Blood Cells 0.0 % Sodium Level 132 L 136-145 mmol/L Potassium Level 3.6 3.5-5.1 mmol/L Chloride Level 98 98-107 mmol/L Carbon Dioxide Level 22 20-31 mmol/L Anion Gap 12 5-15 Blood Urea Nitrogen 38 H 9-23 mg/dL Creatinine 2.04 H 0.700-1.30 mg/dL Glomerular Filtration Rate Calc 38 >90 mL/min BUN/Creatinine Ratio 18.6 10.0-20.0 Serum Glucose 153 H 74-106 mg/dL Calcium Level 9.2 8.7-10.4 mg/dL Total Bilirubin 1.5 H 0.2-1.0 mg/dL Aspartate Amino Transferase (AST) 44 H 13-40 U/L Alanine Aminotransferase (ALT) 54 H 7-40 U/L Alkaline Phosphatase 171 H 46-116 U/L Total Protein 7.6 5.7-8.2 g/dL Albumin 4.1 3.2-4.8 g/dL Lipase 104 H 12-53 U/L Urine Color Yellow Yellow Urine Clarity Hazy H Clear Urine pH 5.5 5.0-9.0 Urine Specific [place] 1.025 1.001-1.035 Urine Protein 1+ H Negative Urine Ketones 1+ H Negative Urine Blood Trace H Negative /uL Urine Nitrite Negative Negative Urine Bilirubin Negative Negative Urine Urobilinogen Normal Negative mg/dL Urine Leukocyte Esterase 2+ Negative /uL Urine RBC 3 0 - 3 /hpf Urine Microscopic WBC 53 H 0-3 /HPF Urine Squamous Epithelial Cells Few <5 /hpf Urine Bacteria Few H None Seen /hpf Urine Yeast (Budding) Occasional None Seen /hpf Urine Glucose Normal Normal mg/dL Current Medications Medications (Trade) Dose Ordered Sig/Abi Route Start Time Stop Time Status Last Admin Sodium Chloride 1,000 ml @ 1,000 mls/hr Q1H ONCE IV 05/10/25 14:15 05/10/25 15:14 DC 05/10/25 15:29 Ceftriaxone Sodium 50 ml @ 100 mls/hr ONCE ONCE IV 05/10/25 15:00 05/10/25 15:29 DC 05/10/25 15:29 Vancomycin HCl 250 ml @ 250 mls/hr ONCE ONCE IV 05/10/25 15:00 05/10/25 15:59 05/10/25 15:29 ORDERING PHYSICIAN: MARILEE VIDES MD PROCEDURE(s): KIDUS - KIDNEY REASON: nephrolithiasis ORDER NUMBER(s): [id number], ACCESSION NUMBER(s): [id number] INDICATION: nephrolithiasis TECHNIQUE: Multiple real-time sonographic images of the kidneys and bladder were obtained. COMPARISON: XY PERCUTANEOUS NEPHROSTOMY on DOS: 12/11/24, US US GUIDANCE FOR NEEDLE PLACEME on DOS: 12/11/24 FINDINGS: RIGHT kidney measures 14 cm in length. Moderate hydronephrosis. LEFT kidney measures 12.1 cm in length. No hydronephrosis. No large intraluminal masses are seen in the bladder. Bladder wall is thickened and heterogeneous. Post void residual of 8.5 cc. Prostate gland measures 28 cc. IMPRESSION: Moderate right hydronephrosis. Possible changes of chronic bladder outlet obstruction. ATED BY: JUAN TEAGUE MD DICTATED DATE/TIME: 05/10/25 1216 SIGNED BY: JUAN TEAGUE MD SIGNED DATE/TIME: 05/10/25 1216 CC: ORDERING PHYSICIAN: WILLIAM CEH MD PROCEDURE(s): ABPL - CT AB PEL WO CON-NO ORAL OR IV REASON: RENAL STONES ORDER NUMBER(s): [id number], ACCESSION NUMBER(s): [id number] Indication: RENAL STONES Technique: CT axial images of the abdomen and pelvis are obtained without contrast. Coronal and sagittal reformats were obtained. Radiation Dose Information: CTDI volume is 18.4 mGy. Dose-length product is 855 mGy*cm Comparison: CT CT AB PEL WO CON-NO ORAL OR IV on DOS: 12/11/24, CT ABD PELVIS WO CONTRAST on DOS: 08/13/21 FINDINGS: There is limited interpretation of the abdomen and pelvis without administration of intravenous contrast. Lung bases demonstrate no pleural effusion. Adrenal glands, spleen, pancreas unremarkable in shape. Liver unremarkable in shape. Cholelithiasis. The Right kidney demonstrates mild right hydroureteronephrosis. Right perinephric stranding/edema 9 mm nonobstructing right renal lower pole calculus. No definitive obstructing calculus identified. Left kidney demonstrates no hydronephrosis / nephrolithiasis. Stomach partially distended. Small bowel loops are normal in caliber. Colonic diverticular disease there is mild Stranding surrounding the descending colon diverticula. Normal appendix. Moderate volume stool in the colon. Abdominal aortic atherosclerotic disease. Bladder partially distended. No free pelvic fluid. No inguinal lymphadenopathy. [id number] bilateral sacroiliac degenerative joint disease. Paraumbilical hernia containing fat measuring 2.2 cm in diameter. IMPRESSION: Limited evaluation without contrast. There is mild right hydroureteronephrosis with right perinephric edema/ strand ing but no definitive obstructing calculus. This can be secondary to a recently passed calculus, urinary tract infection. Right renal lower pole nonobstructing calculus measuring 9 mm. Colonic diverticular disease with mild stranding surrounding the descending colon likely representing diverticulitis. Cholelithiasis. Other findings as described. ATED BY: WES MCWILLIAMS MD DICTATED DATE/TIME: 04/24/25 1409 SIGNED BY: WES MCWILLIAMS MD SIGNED DATE/TIME: 04/24/25 1409 CC: X-Ray, Labs, Meds, VS Comment EXTERNAL MEDICAL RECORDS REVIEWED: [NONE] INDEPENDENT HISTORIANS: [NONE] SOCIAL DETERMINANTS OF HEALTH: [NONE] LABS ORDERED: CBC, CMP, UA REVIEWED AND INTERPRETED RESULTS: WBC 12.9, LEUKO 2+, NA 132, BUN 38, CREATININE 2.04, GLUCOSE 153, TBI 1.5, AST 44, ALT 54, ALP 171 IMAGING ORDERED: NONE TREATMENTS ORDERED: NS 1 L IV, ROCEPHIN 1G IV, VANCOMYCIN 1G IV PROCEDURES PERFORMED: NONE CRITICAL CARE TIME: NONE I HAVE DISCUSSED THE PATIENT WITH THE ATTENDING PHYSICIAN DR. SMITH AND HE AGREES WITH THE PATIENT'S PLAN OF CARE. UPON MY PHYSICAL EXAMINATION, THE PATIENT WAS WELL IN APPEARANCE AND HAD NO SIGNS OF RESPIRATORY DISTRESS AT THIS TIME. DUE TO THE FACT THAT THE PATIENT WAS DIAGNOSED WITH A RENAL STONE AND HAS ALREADY BEEN TREATED BY HIS UROLOGIST FOR HIS RENAL STONE WITH NO IMPROVEMENT, I HAVE DETERMINED THE PATIENT NEEDS TO BE ADMITTED FOR FURTHER TREATMENT AND EVALUATION. THE ON-CALL HOSPITALIST WILL BE CONTACTED FOR ADMISSION OF THIS PATIENT. Images Reviewed?: Images reviewed and evaluated by me Time of 1ST Reevaluation: 15:40 Reevaluation 1ST: Unchanged Patient Education/Counseling: Diagnosis, Treatment Family Education/Counseling: Diagnosis, Treatment SEPSIS Sepsis Screen Date sepsis recognized/suspect: May 10, 2025 Time Sepsis recognized/suspect: 1400 Recent Procedure: No On Antibiotic Therapy: No Respiratory Rate >20: No Heart Rate >90: Yes Temp<36 C (96.8 F) or >38.3 C: No SBP <90 or MAP <65 mmHG: No New Acute Mental Status Change: No Is the patient on CPAP, BIPAP,: No Physician Orders Electrocardigram (05/10/25 13:46) Heplock Iv (05/10/25 ) Urine Bacterial Culture (05/10/25 14:43) Lactic Acid W/ Reflex Order (05/10/25 14:43) Vancomycin 1gm/250ml Kit (05/10/25 15:00) Vital Signs Date Time Temp Pulse Resp B/P (MAP) Pulse Ox O2 Delivery O2 Flow Rate FiO2 05/10/25 15:34 108 05/10/25 14:01 99.6 113 18 139/73 (95) 95 99.6 05/10/25 13:50 108 05/10/25 13:43 99.3 118 18 141/76 95 99.3 Laboratory Tests Test 05/10/25 14:24 05/10/25 15:21 White Blood Count 12.8 10^3/uL (4.4-10.8) H Lactic Acid Level Pending Medications Medications Dose Ordered Sig/Abi Route Start Time Stop Time Status Last Admin Dose Admin Ceftriaxone Sodium 50 ml @ 100 mls/hr ONCE ONCE IV 05/10/25 15:00 05/10/25 15:29 DC 05/10/25 15:29 Sodium Chloride 1,000 ml @ 1,000 mls/hr Q1H ONCE IV 05/10/25 14:15 05/10/25 15:14 DC 05/10/25 15:29 Vancomycin HCl 250 ml @ 250 mls/hr ONCE ONCE IV 05/10/25 15:00 05/10/25 15:59 05/10/25 15:29 Departure 1 Departure Time of Disposition: 15:40 Impression: Primary Impression: Hydronephrosis with obstructing calculus Additional Impression: Sepsis due to urinary tract infection Disposition: ADMITTED INPATIENT Condition: Serious Critical Care Note Critical Care Time?: No Stability Stability form required: Yes Unstable for transfer: Requires medication, ED Physician Assesment, Possible rapid decline I personally scribed for CHELSI LOVING ([email or web address]) on 05/10/25 at 14:24. Electronically submitted by Emanuel Nobles ([employer]). I personally scribed for CHELSI LOVING ([email or web address]) on 05/10/25 at 15:33. Electronically submitted by Emanuel Nobles ([employer]). I personally scribed for CHELSI LOVING ([email or web address]) on 05/10/25 at 15:34. Electronically submitted by Emanuel Nobles ([employer]). CHELSI LOVING May 10, 2025 14:24
[2025-05-10 14:32] LABS: Urine Budding Yeast OCCASIONAL /hpf (None Seen); Urine Protein, UAD 1+ (Negative)
[2025-05-10 14:36] LABS: Hematocrit 32.0 % (41.0-53.0); Hemoglobin 10.9 g/dL (13.5-17.5); Mean Corpuscular Hemoglobin 30.0 pg (28.0-32.0); Mean Corpuscular Volume 88.0 fL (80.0-100.0); Nucleated Red Blood Cells % 0.0 %
[2025-05-10 14:53] LABS: Albumin 4.1 g/dL (3.2-4.8); Anion Gap 12 (5-15); BUN/Creatinine Ratio 18.6 (10.0-20.0); Calcium 9.2 mg/dL (8.7-10.4); Carbon Dioxide 22 mmol/L (20-31); Chloride 98 mmol/L (98-107); Potassium 3.6 mmol/L (3.5-5.1); Total Protein 7.6 g/dL (5.7-8.2)
[2025-05-10 14:55] LABS: Alanine Aminotransferase 54 U/L (7-40); Alkaline Phosphatase 171 U/L (46-116); Bilirubin, Total 1.5 mg/dL (0.2-1.0); Blood Urea Nitrogen 38 mg/dL (9-23); Glucose 153 mg/dL (74-106); Sodium 132 mmol/L (136-145)
[2025-05-10] MEDS: VANCOMYCIN 1GM/250ML KIT 250 ML IV ONE (15:29)
[2025-05-10] MEDS: SODIUM CHLORIDE 0.9% 1,000 ML IV ONE (15:29)
--- NOTE | 2025-05-10 17:00 | DVHHP2 ---
Admitting Diagnosis: abdominal pain History of Present Illness A 55 YEAR OLD MALE PRESENTS TO THE ED WITH COMPLAINT OF RIGHT FLANK PAIN. PATIENT STATES HE HAS BEEN EXPERIENCING RIGHT FLANK PAIN THAT RADIATES TO HIS RIGHT LOWER ABDOMEN FOR THE PAST 1 WEEK. PATIENT REPORTS HE HAD A CT SCAN DONE ON 04/24/25 WHICH REVEALED MILD RIGHT HYDROURETERONEPHROSIS WITH PERINEPHRIC EDEMA AND STRANDING AND A 9 MM NONOBSTRUCTING RIGHT RENAL CALCULUS. PATIENT REPORTS HE FOLLOWED UP WITH HIS UROLOGIST DR. VIDES TODAY WHERE AN ULTRASOUND ON HIS KIDNEYS WAS DONE WHICH REVEALED MODERATE RIGHT HYDRONEPHROSIS. PATIENT STATES HE WAS INSTRUCTED BY HIS PRIMARY CARE PHYSICIAN TO COME TO THE ED TO BE ADMITTED FOR FURTHER TREATMENT OF HIS RENAL STONE. PATIENT DENIES FEVER, CHILLS, SHORTNESS OF BREATH, CHEST PAIN, NAUSEA, VOMITING, HEADACHE, OR OTHER COMPLAINTS. NO OTHER SYMPTOMS OR MODIFYING FACTORS AT THIS TIME. PATIENT IS ALERT, ORIENTED X 4, AND HAS STEADY GAIT. PAST MEDICAL HISTORY: HTN, Kidney Stones Surgical History: Denies all surgeries Family History: Reviewed,noncontributory to illness Social History Smoker: Non-Smoker Alcohol: Denies ETOH Use Drugs: Denies Drug Use Lives In: Home Patient Family History: FHx: rheumatoid arthritis G8 MOTHER FHx: seizures G8 FATHER, Allergies: Coded Allergies: NO KNOWN ALLERGIES (Unverified , 03/27/24) Home Meds Reported Medications Labetalol Hcl (Labetalol Hcl) 100 Mg Tab, 1 TAB PO BID 12/11/24 Amlodipine Besylate (Amlodipine Besylate) 10 Mg Tab, 1 TAB PO 12/11/24 Vital Signs Vital Signs Date Time Temp Pulse Resp B/P (MAP) Pulse Ox O2 Delivery O2 Flow Rate FiO2 05/10/25 15:34 108 05/10/25 14:01 99.6 18 139/73 (95) 95 99.6 Physical Exam Generally 55 years old male, well nourished well developed. Mild distress HEENT-atraumatic normocephalic Heart-regular rate and rhythm Lungs clear to auscultate Abdomen soft nontender nondistended Musculoskeletal-no edema also Neuro-AO x3, no focal deficits SEPSIS Sepsis Screen Date sepsis recognized/suspect: May 10, 2025 Time Sepsis recognized/suspect: 1400 Recent Procedure: No On Antibiotic Therapy: No Respiratory Rate >20: No Heart Rate >90: Yes Temp<36 C (96.8 F) or >38.3 C: No SBP <90 or MAP <65 mmHG: No New Acute Mental Status Change: No Is the patient on CPAP, BIPAP,: No Physician Orders Electrocardigram (05/10/25 13:46) Heplock Iv (05/10/25 ) Urine Bacterial Culture (05/10/25 14:43) Vital Signs Date Time Temp Pulse Resp B/P (MAP) Pulse Ox O2 Delivery O2 Flow Rate FiO2 05/10/25 15:34 108 05/10/25 14:01 99.6 113 18 139/73 (95) 95 99.6 05/10/25 13:50 108 05/10/25 13:43 99.3 118 18 141/76 95 99.3 Laboratory Tests Test 05/10/25 14:24 05/10/25 15:21 White Blood Count 12.8 10^3/uL (4.4-10.8) H Lactic Acid Level 0.8 mmol/L (0.4-2.0) Medications Medications Dose Ordered Sig/Abi Route Start Time Stop Time Status Last Admin Dose Admin Ceftriaxone Sodium 50 ml @ 100 mls/hr ONCE ONCE IV 05/10/25 15:00 05/10/25 15:29 DC 05/10/25 15:29 Sodium Chloride 1,000 ml @ 1,000 mls/hr Q1H ONCE IV 05/10/25 14:15 05/10/25 15:14 DC 05/10/25 15:29 Vancomycin HCl 250 ml @ 250 mls/hr ONCE ONCE IV 05/10/25 15:00 05/10/25 15:59 DC 05/10/25 15:29 Results Labs Test 05/10/25 15:21 05/10/25 14:24 05/10/25 13:56 Range/Units Lactic Acid Level 0.8 0.4-2.0 mmol/L White Blood Count 12.8 H 4.4-10.8 10^3/uL Red Blood Count 3.63 L 4.5-5.90 10^6/uL Hemoglobin 10.9 L 13.5-17.5 g/dL Hematocrit 32.0 L 41.0-53.0 % Mean Corpuscular Volume 88.0 80.0-100.0 fL Mean Corpuscular Hemoglobin 30.0 28.0-32.0 pg Mean Corpuscular Hemoglobin Concent 34.1 32.0-36.0 g/dL Red Cell Distribution Width 15.1 H 11.8-14.3 % Platelet Count 267 140-450 10^3/uL Mean Platelet Volume 8.1 6.9-10.8 fL Neutrophils (%) (Auto) 84.9 H 37.0-80.0 % Lymphocytes (%) (Auto) 7.5 L 10.0-50.0 % Monocytes (%) (Auto) 7.3 0.0-12.0 % Eosinophils (%) (Auto) 0.1 0.0-7.0 % Basophils (%) (Auto) 0.2 0.0-2.0 % Neutrophils # (Auto) 10.9 H 1.6-8.6 10 ^3/uL Lymphocytes # (Auto) 1.0 0.4-5.4 10 ^3/uL Monocytes # (Auto) 0.9 0-1.3 10 ^3/uL Eosinophils # (Auto) 0 0-0.8 10 ^3/uL Basophils # (Auto) 0 0-0.2 10 ^3/uL Nucleated Red Blood Cells 0.0 % Sodium Level 132 L 136-145 mmol/L Potassium Level 3.6 3.5-5.1 mmol/L Chloride Level 98 98-107 mmol/L Carbon Dioxide Level 22 20-31 mmol/L Anion Gap 12 5-15 Blood Urea Nitrogen 38 H 9-23 mg/dL Creatinine 2.04 H 0.700-1.30 mg/dL Glomerular Filtration Rate Calc 38 >90 mL/min BUN/Creatinine Ratio 18.6 10.0-20.0 Serum Glucose 153 H 74-106 mg/dL Calcium Level 9.2 8.7-10.4 mg/dL Total Bilirubin 1.5 H 0.2-1.0 mg/dL Aspartate Amino Transferase (AST) 44 H 13-40 U/L Alanine Aminotransferase (ALT) 54 H 7-40 U/L Alkaline Phosphatase 171 H 46-116 U/L Total Protein 7.6 5.7-8.2 g/dL Albumin 4.1 3.2-4.8 g/dL Lipase 104 H 12-53 U/L Urine Color Yellow Yellow Urine Clarity Hazy H Clear Urine pH 5.5 5.0-9.0 Urine Specific [place] 1.025 1.001-1.035 Urine Protein 1+ H Negative Urine Ketones 1+ H Negative Urine Blood Trace H Negative /uL Urine Nitrite Negative Negative Urine Bilirubin Negative Negative Urine Urobilinogen Normal Negative mg/dL Urine Leukocyte Esterase 2+ Negative /uL Urine RBC 3 0 - 3 /hpf Urine Microscopic WBC 53 H 0-3 /HPF Urine Squamous Epithelial Cells Few <5 /hpf Urine Bacteria Few H None Seen /hpf Urine Yeast (Budding) Occasional None Seen /hpf Urine Glucose Normal Normal mg/dL Primary Diagnosis acute pelonephritis Right moderate hydronephritis anemia Plan Positive UA, ultrasound shows right moderate hydronephrosis Urology consult Check bcx, ucx Start Zosyn for broad-spectrum antibiotics IV fluids NPO after midnight Antiemetic Pain control Full code SCD for DVT prophylaxis No GI prophylaxis needed Plan discussed with: Patient Problems List: (1) Hydronephrosis with obstructing calculus Status: Acute (2) Sepsis due to urinary tract infection Status: Acute Date of Service: May 10, 2025 Billing Provider: SWATI CHE MD Common Visit Codes: [id number] INP/OBS CARE (HIGH) SWATI CHE MD May 10, 2025 17:00
[2025-05-10] MEDS ORDERED: ONDANSETRON HCL 4 MG/2 ML VIAL IV PRN (17:15)
[2025-05-10] MEDS ORDERED: DOCUSATE SOD 100 MG CAP PO PRN (17:15)
[2025-05-10] MEDS ORDERED: hydrALAZINE HCL 20 MG/ML VL IV PRN (17:30)
[2025-05-10 19:19] VITALS: RESP 16
[2025-05-10 20:00] VITALS: RESP 16
[2025-05-10 21:00] VITALS: BP 156/83; PULSE 103; RESP 20; TEMP 101; O2SAT 100
[2025-05-10] MEDS: TAMSULOSIN HYDROCHLORIDE 0.4 MG CAP PO SCH (21:47)
[2025-05-10] MEDS: SODIUM CHLOR 0.9% PF (SALINE LOCK) 10ML VIAL/SYR IV SCH (22:13)
[2025-05-10] MEDS: PIPERACILLIN-TAZOB 3.375GM 100 ML IV SCH (22:13)
[2025-05-10] MEDS: SODIUM CHLORIDE 0.9% 1,000 ML IV SCH (22:13)
[2025-05-11] VITALS (29 sets, daily range): BP systolic 92–177; BP diastolic 31–86; PULSE 92–213; RESP 13–45; TEMP 99.5–103.1; O2SAT 90–97
[2025-05-11 07:09] LABS: Hematocrit 28.9 % (41.0-53.0); Hemoglobin 9.9 g/dL (13.5-17.5); Mean Corpuscular Hemoglobin 30.3 pg (28.0-32.0); Mean Corpuscular Volume 88.8 fL (80.0-100.0); Nucleated Red Blood Cells % 0.0 %
[2025-05-11 07:18] LABS: Albumin 3.6 g/dL (3.2-4.8); Anion Gap 11 (5-15); BUN/Creatinine Ratio 15.5 (10.0-20.0); Carbon Dioxide 21 mmol/L (20-31); Chloride 101 mmol/L (98-107); Potassium 3.8 mmol/L (3.5-5.1); Total Protein 6.9 g/dL (5.7-8.2)
[2025-05-11 07:20] LABS: INR 1.2 (0.9-1.15); Partial Thromboplastin Time 34.4 SEC (24.5-34.5); Prothrombin Time 12.5 sec (9.3-11.8)
[2025-05-11 07:25] LABS: Alanine Aminotransferase 55 U/L (7-40); Alkaline Phosphatase 175 U/L (46-116); Bilirubin, Total 1.3 mg/dL (0.2-1.0); Blood Urea Nitrogen 28 mg/dL (9-23); Calcium 8.4 mg/dL (8.7-10.4); Glucose 143 mg/dL (74-106); Sodium 133 mmol/L (136-145)
--- NOTE | 2025-05-11 07:30 | DVH ---
EXAM: XY CHEST PORTABLE HISTORY: procedure TECHNIQUE: 1 view of the chest COMPARISON: None FINDINGS/IMPRESSION: LUNGS: No pleural effusion, consolidation, or pneumothorax. MEDIASTINUM: Unremarkable. BONES: No acute osseous abnormality. OTHER: None.
--- NOTE | 2025-05-11 10:42 | ECG ---
[facility] Test Date: 2025-05-10 Test Time: 13:50:24 Pat Name: KRISTEN ARRIETA Department: ED Room: 0206T Gender: M [employer] Internship: LEONIDES : 1970 Requested By: EMERGENCY EMERGENCY Order Number: [id number] Reading MD: Blaise Delatorre Measurements Intervals Stacy Rate: 108 P: 45 KS: 177 QRS: 3 QRSD: 104 T: 29 QT: 335 QTc: 449 Interpretive Statements Sinus tachycardia Anterior infarct, old Baseline wander in lead(s) II,aVF,V2,V3,V5,V6 Electronically Signed On 05-17-2025 8:22:00 PST by Blaise Delatorre Please click the below link to view image of tracing.
--- NOTE | 2025-05-11 12:17 | DVHPN2 ---
Reviewed: Care Plan Changes from previous H/P or p: No Changes Objective Vitals Vital Signs Date Time Temp Pulse Resp B/P (MAP) Pulse Ox O2 Delivery O2 Flow Rate FiO2 05/11/25 09:00 99.6 101 18 146/86 (106) 96 99.6 05/11/25 08:00 Room Air* 0 21 Intake/Output Intake and Output 05/11/25 07:00 Intake Total 2200 ml Balance 2200 ml Intake Oral 900 ml IV Total 1300 ml # Voids 2 # Bowel Movements 1 Medications Current Medications Medications Dose Ordered Sig/Abi Route Start Time Stop Time Status Last Admin Dose Admin Sodium Chloride 10 ml Q8HR IV 05/10/25 22:00 05/11/25 06:30 10 ML Sodium Chloride 1,000 ml @ 60 mls/hr [id number] IV 05/10/25 17:15 05/10/25 22:13 60 MLS/HR Docusate Sodium 100 mg BIDPRN PRN PO 05/10/25 17:15 Acetaminophen 650 mg Q6HP PRN PO 05/10/25 17:15 Acetaminophen/ Hydrocodone Bitart 1 tab Q4HP PRN PO 05/10/25 17:15 Hydromorphone HCl 0.5 mg Q4HP PRN IV 05/10/25 17:15 Ondansetron HCl 4 mg Q4HP PRN IV 05/10/25 17:15 Tamsulosin HCl 0.4 mg QPM PO 05/10/25 18:00 05/10/25 21:47 0.4 MG Hydralazine HCl 10 mg Q6HP PRN IV 05/10/25 17:30 Ceftriaxone Sodium 50 ml @ 100 mls/hr DAILY@09 IV 05/12/25 09:00 UNV Laboratory Results Laboratory Tests 05/11/25 05:22 Chemistry Test 05/10/25 14:24 05/11/25 05:22 Albumin 4.1 g/dL (3.2-4.8) 3.6 g/dL (3.2-4.8) Calcium Level 9.2 mg/dL (8.7-10.4) 8.4 mg/dL (8.7-10.4) L Total Protein 7.6 g/dL (5.7-8.2) 6.9 g/dL (5.7-8.2) Coagulation Test 05/11/25 05:22 Prothrombin Time 12.5 sec (9.3-11.8) H Prothrombin Time INR 1.20 (0.9-1.15) H Activated Partial Thromboplast Time 34.4 SEC (24.5-34.5) Lipid panel Test 05/10/25 14:24 Lipase 104 U/L (12-53) H LFT Test 05/10/25 14:24 05/11/25 05:22 Alanine Aminotransferase (ALT) 54 U/L (7-40) H 55 U/L (7-40) H Alkaline Phosphatase 171 U/L (46-116) H 175 U/L (46-116) H Aspartate Amino Transferase (AST) 44 U/L (13-40) H 41 U/L (13-40) H Total Bilirubin 1.5 mg/dL (0.2-1.0) H 1.3 mg/dL (0.2-1.0) H Urinalysis Test 05/10/25 13:56 Urine Color Yellow (Yellow) Urine Clarity Hazy (Clear) H Urine pH 5.5 (5.0-9.0) Urine Specific [place] 1.025 (1.001-1.035) Urine Protein 1+ (Negative) H Urine Ketones 1+ (Negative) H Urine Blood Trace /uL (Negative) H Urine Nitrite Negative (Negative) Urine Bilirubin Negative (Negative) Urine Urobilinogen Normal mg/dL (Negative) Urine Leukocyte Esterase 2+ /uL (Negative) Urine RBC 3 /hpf (0 - 3) Urine Microscopic WBC 53 /HPF (0-3) H Urine Squamous Epithelial Cells Few /hpf (<5) Urine Bacteria Few /hpf (None Seen) H Urine Yeast (Budding) Occasional /hpf (None Urine Creatinine 169.33 mg/dL (30.0-125.0) H Urine Sodium 15 mmol/L (40-220) L Urine Glucose Normal mg/dL (Normal) Microbiology Microbiology Date/Time Source Procedure Growth Status 05/10/25 13:56 Voided Urine Urine Culture - Preliminary No growth Resulted Labs and/or images reviewed: Labs reviewed by me, Image(s) reviewed by me Assessment/Plan Assessment/Plan Acute right flank pain Sepsis secondary to urinary tract infection blood cultures urine cultures Rocephin Acute pyelonephritis: CT abdomen pelvis without contrast rule out kidney stones bladder outlet obstruction Moderate right hydronephrosis: Consult for Urology Dr. Coates Acute pancreatitis lipase 106, NPO, IV fluids, consult for GI Dr. Patricia Benítez Acute metabolic encephalopathy Check urine drug screen Check blood alcohol level Time spent 55 minutes Plan discussed with: Patient My Orders Orders - KANG LEBLANC MD Procedure Category Date Status Time Ct Ab Pel Wo Con-No CT 05/11/25 Logged Oral Or Iv 12:07 Blood Culture ELBA 05/11/25 Logged 12:08 Blood Culture ELBA 05/11/25 Logged 12:09 Ceftriaxone 1gm/50ml PHA 05/12/25 Logged (Rocephin) 09:00 Ceftriaxone 1gm/50ml PHA 05/11/25 Logged (Rocephin) 12:15 * [facility] [employer] CONS 05/11/25 Transmitted 12:10 Date of Service: May 11, 2025 Billing Provider: KANG LEBLANC MD Common Visit Codes: [id number] INP/OBS CARE(HIGH) KANG LEBLANC MD May 11, 2025 12:17
--- NOTE | 2025-05-11 13:52 | DVH ---
CLINICAL HISTORY: Rule out kidney stones, patient also has pancreatitis TECHNIQUE: CT of the abdomen and pelvis was performed without IV contrast. This exam was performed according to our departmental dose optimization program. Up-to-date CT equipment and radiation dose reduction techniques are utilized as appropriate. CTDI 24 DLP 1262 COMPARISON: CT CT AB PEL WO CON-NO ORAL OR IV on DOS: 04/24/25, CT CT AB PEL WO CON-NO ORAL OR IV on DOS: 12/11/24, CT ABD PELVIS WO CONTRAST on DOS: 08/13/21 FINDINGS: Abdomen/Pelvis: The spleen, adrenal glands, pancreas, left kidney, bladder, and prostate gland are grossly unremarkable. There is an 8 mm proximal/mid right ureteral calculus resulting in moderate right hydroureteronephrosis. Hypodense right renal lesion is incompletely characterized due to lack of IV contrast. The liver is cirrhotic in morphology with nodular contour. There is a 3 mm The abdominal aorta is normal in course and caliber. There are minimal aortic atherosclerotic calcifications. There is no free intraperitoneal air or fluid. There is no enlarged abdominal pelvic lymph node. There is no bowel wall thickening or dilatation. The appendix is normal. There is mild colonic diverticulosis. There is a small fat containing umbilical hernia. Other: The imaged lower thorax demonstrate minimal linear atelectatic changes at both lung bases. No acute osseous abnormality is evident. IMPRESSION: 8 mm proximal/mid right ureteral calculus resulting in moderate right hydroureteronephrosis. Cirrhotic liver morphology. Mild colonic diverticulosis. Small gallstones.
--- NOTE | 2025-05-11 14:21 | DVH ---
INDICATION: r/o gall stones TECHNIQUE: Multiple real-time sonographic images of the abdomen were obtained. COMPARISON: None FINDINGS: The liver is homogenous in echogenicity. The liver measures 18.2 cm cm. No intrahepatic biliary ductal dilatation is noted. The gallbladder wall measures 0.27 cm and is unremarkable. Sludge and stones are noted in the gallbladder. The common duct not visualized. Negative sonographic Hopkins's sign The right kidney measures 12.2 cm. Hydronephrosis in the right kidney. No masses or nephrolithiasis visualized. Right ureteral jet not visualized in the bladder left ureteral jet visualized in the bladder. The spleen measures 12.3 cm, within normal limits. The echogenicity is within normal limits. The pancreas is not well visualized due to obscuration from bowel gas. The visualized portions of the IVC and aorta are grossly unremarkable. IMPRESSION: 1. Normal exam of the abdomen.
--- NOTE | 2025-05-11 14:48 | DVHCONRES ---
Date Seen: May 11, 2025 Resident Creating Document: SOY CROWLEY RESIDENT Referring Physician DR LEBLANC History of Present Illness 55-year-old male presents to the ER with a chief complaint of right flank pain for the past 1 week. Patient reports that his nephrostomy tube started to come out, reports fevers and chills. Patient was admitted in this facility in November 2024 and underwent Right nephrostomy tube placed, he follows up with Urology GI consulted for acute pancreatitis Past medical/surgical history: Hypertension, kidney stones Social history: Denies smoking drinking drug use Patient seen and examined in the ER. CT abdomen showed 8 mm proximal/mid right ureteral calculus resulting in moderate right hydroureteronephrosis. Cirrhotic liver morphology. Mild colonic diverticulosis. Small gallstones. Family History: FHx: rheumatoid arthritis G8 MOTHER FHx: seizures G8 FATHER, Allergies: Coded Allergies: NO KNOWN ALLERGIES (Unverified , 03/27/24) Home Meds Reported Medications Labetalol Hcl (Labetalol Hcl) 100 Mg Tab, 1 TAB PO BID 12/11/24 Amlodipine Besylate (Amlodipine Besylate) 10 Mg Tab, 1 TAB PO 12/11/24 Current Medications Current Medications Medications (Trade) Dose Ordered Sig/Abi Route PRN Reason Start Time Stop Time Status Last Admin Sodium Chloride (Saline Lock Ns) 10 ml Q8HR IV 05/10/25 22:00 05/11/25 13:33 Sodium Chloride 1,000 ml @ 60 mls/hr [id number] IV 05/10/25 17:15 05/10/25 22:13 Docusate Sodium (Colace Capsule) 100 mg BIDPRN PRN PO FOR CONSTIPATION 05/10/25 17:15 Acetaminophen (Tylenol Tablet) 650 mg Q6HP PRN PO PAIN SCALE 1-3 OR TEMP>100.4 05/10/25 17:15 Acetaminophen/ Hydrocodone Bitart ([place] 5/325MG Tab) 1 tab Q4HP PRN PO MODERATE PAIN (4-6 PAIN SCALE) 05/10/25 17:15 Hydromorphone HCl (Dilaudid Injection) 0.5 mg Q4HP PRN IV SEVERE PAIN (7-10 PAIN SCALE) 05/10/25 17:15 Ondansetron HCl (Zofran) 4 mg Q4HP PRN IV NAUSEA / VOMITING 05/10/25 17:15 Piperacillin Sod/ Tazobactam Sod 100 ml @ 25 mls/hr Q8HR IV 05/10/25 22:00 05/11/25 12:11 DC 05/11/25 06:30 Tamsulosin HCl (Flomax) 0.4 mg QPM PO 05/10/25 18:00 05/10/25 21:47 Hydralazine HCl (Apresoline Injection) 10 mg Q6HP PRN IV SBP>150 05/10/25 17:30 Ceftriaxone Sodium 50 ml @ 100 mls/hr DAILY@09 IV 05/12/25 09:00 Vital Signs Vital Signs Date Time Temp Pulse Resp B/P (MAP) Pulse Ox O2 Delivery O2 Flow Rate FiO2 05/11/25 13:00 100.4 93 18 125/78 (94) 95 100.4 05/11/25 08:00 Room Air* 0 21 Physical Exam Obese male patient lying in the bed comfortably, no acute distress General: Obese, low-grade fevers, palor, mucosae are moist Cardiovascular: Tachycardic but Regular S1 and S2. No murmurs, gallops or rubs. No JVD elevation. No pedal edema Respiratory: Normal B/L air entry on room air. Clear lung sounds on auscultation Abdomen: Soft, nontender, nondistended, normoactive bowel sounds, no rebound tenderness, no organomegaly, no masses Genitourinary: Deferred MSK/skin: Mobilizes 4 limbs. Skin is dry and warm Labs/Diagnostic Data Labs Test 05/11/25 12:50 05/11/25 05:22 05/10/25 15:21 05/10/25 14:24 Range/Units Plasma/Serum Blood Alcohol < 3.0 <10 mg/dL White Blood Count 11.6 H 4.4-10.8 10^3/uL Red Blood Count 3.26 L 4.5-5.90 10^6/uL Hemoglobin 9.9 L 13.5-17.5 g/dL Hematocrit 28.9 L 41.0-53.0 % Mean Corpuscular Volume 88.8 80.0-100.0 fL Mean Corpuscular Hemoglobin 30.3 28.0-32.0 pg Mean Corpuscular Hemoglobin Concent 34.1 32.0-36.0 g/dL Red Cell Distribution Width 15.4 H 11.8-14.3 % Platelet Count 249 140-450 10^3/uL Mean Platelet Volume 8.4 6.9-10.8 fL Neutrophils (%) (Auto) 80.9 H 37.0-80.0 % Lymphocytes (%) (Auto) 10.0 10.0-50.0 % Monocytes (%) (Auto) 8.4 0.0-12.0 % Eosinophils (%) (Auto) 0.1 0.0-7.0 % Basophils (%) (Auto) 0.6 0.0-2.0 % Neutrophils # (Auto) 9.4 H 1.6-8.6 10 ^3/uL Lymphocytes # (Auto) 1.2 0.4-5.4 10 ^3/uL Monocytes # (Auto) 1.0 0-1.3 10 ^3/uL Eosinophils # (Auto) 0 0-0.8 10 ^3/uL Basophils # (Auto) 0.1 0-0.2 10 ^3/uL Nucleated Red Blood Cells 0.0 % Prothrombin Time 12.5 H 9.3-11.8 sec Prothrombin Time INR 1.20 H 0.9-1.15 Activated Partial Thromboplast Time 34.4 24.5-34.5 SEC Sodium Level 133 L 136-145 mmol/L Potassium Level 3.8 3.5-5.1 mmol/L Chloride Level 101 98-107 mmol/L Carbon Dioxide Level 21 20-31 mmol/L Anion Gap 11 5-15 Blood Urea Nitrogen 28 #H 9-23 mg/dL Creatinine 1.81 H 0.700-1.30 mg/dL Glomerular Filtration Rate Calc 44 >90 mL/min BUN/Creatinine Ratio 15.5 10.0-20.0 Serum Glucose 143 H 74-106 mg/dL Calcium Level 8.4 L 8.7-10.4 mg/dL Total Bilirubin 1.3 H 0.2-1.0 mg/dL Aspartate Amino Transferase (AST) 41 H 13-40 U/L Alanine Aminotransferase (ALT) 55 H 7-40 U/L Alkaline Phosphatase 175 H 46-116 U/L Total Protein 6.9 5.7-8.2 g/dL Albumin 3.6 3.2-4.8 g/dL Lactic Acid Level 0.8 0.4-2.0 mmol/L Lipase 104 H 12-53 U/L Test 05/10/25 13:56 Range/Units Urine Color Yellow Yellow Urine Clarity Hazy H Clear Urine pH 5.5 5.0-9.0 Urine Specific [place] 1.025 1.001-1.035 Urine Protein 1+ H Negative Urine Ketones 1+ H Negative Urine Blood Trace H Negative /uL Urine Nitrite Negative Negative Urine Bilirubin Negative Negative Urine Urobilinogen Normal Negative mg/dL Urine Leukocyte Esterase 2+ Negative /uL Urine RBC 3 0 - 3 /hpf Urine Microscopic WBC 53 H 0-3 /HPF Urine Squamous Epithelial Cells Few <5 /hpf Urine Bacteria Few H None Seen /hpf Urine Yeast (Budding) Occasional None Seen /hpf Urine Creatinine 169.33 H 30.0-125.0 mg/dL Urine Sodium 15 L 40-220 mmol/L Urine Glucose Normal Normal mg/dL Microbiology Date/Time Source Procedure Growth Status 05/10/25 13:56 Voided Urine Urine Culture - Preliminary No growth Resulted Assessment Abdominal pain likely secondary to 8 mm right ureteral calculus moderate right hydroureteronephrosis Anemia Sepsis due to above Colonic diverticulosis Cholelithiasis but no cholecystitis Transaminitis likely due to sepsis CT abdomen shows 8 mm proximal/mid right ureteral calculus resulting in moderate right hydroureteronephrosis. Cirrhotic liver morphology. Mild colonic diverticulosis. Small gallstones. Abdominal ultrasound is unremarkable, The liver is homogenous in echogenicity. The liver measures 18.2 cm cm. No intrahepatic biliary ductal dilatation is noted. The gallbladder wall measures 0.27 cm and is unremarkable. Sludge and stones are noted in the gallbladder. The common duct not visualized. Negative sonographic Hopkins's sign Plan: Recommendation: Dr. Benítez Patient does not have acute cholecystitis at this time. Patient does not have abdominal pain or CT findings consistent with pancreatitis. We will continue to follow up. Continue IV fluids, IV antibiotics, clear liquid diet, advanced as tolerated Urology consultation appreciated - Right ureteroscope epic laser lithotripsy with renal evacuation (CVAC) and right ureteral stent placement tomorrow morning. NPO after midnight Follow up with hepatitis panel, iron panel, ferritin, ESR and CRP Follow up with blood culture, urine culture Antiemetics, pain control Protonix 40 mg IV daily Plan discussed with patient in which all questions have been answered Case discussed with Dr. Benítez Plan discussed with: Patient SOY CROWLEY RESIDENT May 11, 2025 14:48
--- NOTE | 2025-05-11 15:09 | DVHINCON2 ---
Date of service: May 11, 2025 Referring Physician Hospitalist Reason for Consultation Right hydronephrosis History of Present Illness Patient has history of undergoing right percutaneous nephrostomy tube placement for a 9 mm obstructing proximal ureteral calculus. He subsequently underwent lithotripsy with subsequent removal of the nephrostomy tube. He is admitted to [facility] for right flank pain and CT scan showing persistent 9 mm right nephrolithiasis in the renal pelvis with moderate hydronephrosis. Past Medical History HTN, Kidney Stones Past Surgical History Right percutaneous nephrostomy tube placement Right ESWL with subsequent removal of the nephrostomy tube Family History: FHx: rheumatoid arthritis G8 MOTHER FHx: seizures G8 FATHER, Allergies: Coded Allergies: NO KNOWN ALLERGIES (Unverified , 03/27/24) Home Meds Reported Medications Labetalol Hcl (Labetalol Hcl) 100 Mg Tab, 1 TAB PO BID 12/11/24 Amlodipine Besylate (Amlodipine Besylate) 10 Mg Tab, 1 TAB PO 12/11/24 Current Medications Current Medications Medications (Trade) Dose Ordered Sig/Abi Route PRN Reason Start Time Stop Time Status Last Admin Sodium Chloride (Saline Lock Ns) 10 ml Q8HR IV 05/10/25 22:00 05/11/25 13:33 Sodium Chloride 1,000 ml @ 60 mls/hr [id number] IV 05/10/25 17:15 05/10/25 22:13 Docusate Sodium (Colace Capsule) 100 mg BIDPRN PRN PO FOR CONSTIPATION 05/10/25 17:15 Acetaminophen (Tylenol Tablet) 650 mg Q6HP PRN PO PAIN SCALE 1-3 OR TEMP>100.4 05/10/25 17:15 Acetaminophen/ Hydrocodone Bitart ([place] 5/325MG Tab) 1 tab Q4HP PRN PO MODERATE PAIN (4-6 PAIN SCALE) 05/10/25 17:15 Hydromorphone HCl (Dilaudid Injection) 0.5 mg Q4HP PRN IV SEVERE PAIN (7-10 PAIN SCALE) 05/10/25 17:15 Ondansetron HCl (Zofran) 4 mg Q4HP PRN IV NAUSEA / VOMITING 05/10/25 17:15 Piperacillin Sod/ Tazobactam Sod 100 ml @ 25 mls/hr Q8HR IV 05/10/25 22:00 05/11/25 12:11 DC 05/11/25 06:30 Tamsulosin HCl (Flomax) 0.4 mg QPM PO 05/10/25 18:00 05/10/25 21:47 Hydralazine HCl (Apresoline Injection) 10 mg Q6HP PRN IV SBP>150 05/10/25 17:30 Ceftriaxone Sodium 50 ml @ 100 mls/hr DAILY@09 IV 05/12/25 09:00 Review of Systems Constitutional: denies: chills, diaphoresis, fatigue, fever, malaise, sweats, weakness, others EENTM: denies: blurred vision, double vision, ear bleeding, ear discharge, ear drainage, ear pain, ear ringing, eye pain, eye redness, hearing loss, mouth pain, mouth swelling, nasal discharge, nose bleeding, nose congestion, nose pain, photophobia, tearing, throat pain, throat swelling, voice changes, others Respiratory: denies: cough, hemoptysis, orthopnea, SOB at rest, shortness of b reath, SOB with excertion, stridor, wheezing, others Cardiovascular: denies: chest pain, dizzy spells, diaphoresis, Dyspnea on exertion, edema, irregular heart beat, left arm pain, lightheadedness, palpitations, PND, syncope, others Gastrointestinal: reports: abdominal pain; denies: abdomen distended, blood streaked bowels, constipated, diarrhea, dysphagia, difficulty swallowing, hematemesis, melena, nausea, poor appetite, poor fluid intake, rectal bleeding, rectal pain, vomiting, others Genitourinary: reports: flank pain, frequency; denies: burning, dysuria, hematuria, incontinence, penile discharge, penile sore, pain, testicle pain, testicle swelling, urgency, others Neurological: denies: dizziness, fainting, headache, left sided numbness, left sided weakness, numbness, paresthesia, pre-existing deficit, right sided numbness, right sided weakness, seizure, speech problems, tingling, tremors, weakness, others Musculoskeletal: denies: back pain, gout, joint pain, joint swelling, muscle pain, muscle stiffness, neck pain, others Integumetry: denies: bruises, change in color, change in hair/nails, dryness, laceration, lesions, lumps, rash, wounds, others Allergic/Immunocompromised: denies: Difficulty Healing, Frequent Infections, Hives, Itching, others Hematologic/Lymphatic: denies: anemia, blood clots, easy bleeding, easy bruising, swollen glands, others Endocrine: denies: excessive hunger, excessive sweating, excessive thirst, excessive urination, flushing, intolerance to cold, intolerance to heat, unexplained weight gain, unexplained weight loss, others Psychiatric: denies: anxiety, bipolar disorder, depression, hopeless, panic disorder, schizophrenia, sleepless, suicidal, others All Other Systems: Reviewed and Negative Vital Signs Vital Signs Date Time Temp Pulse Resp B/P (MAP) Pulse Ox O2 Delivery O2 Flow Rate FiO2 05/11/25 13:00 100.4 93 18 125/78 (94) 95 100.4 05/11/25 08:00 Room Air* 0 21 Physical Exam General Appearance: No Apparent Distress, Normal HEENT: Normal ENT Inspection, PERRL/EOMI, Pharynx Normal, TMs Normal Neck: Full Range of Motion, Non-Tender, Normal, Normal Inspection Respiratory: Chest Non-Tender, Lungs Clear, No Accessory Muscle Use, No Re spiratory Distress, Normal Breath Sounds Cardiovascular: No Edema, No JVD, No Murmur, No Gallop, Normal Peripheral Pulses, Regular Rate/Rhythm Breast Exam: Deferred Gastrointestinal: No Organomegaly, No Pulsatile Mass, Normal Bowel Sounds, RLQ, Soft, Tenderness (RIGHT FLANK AND RIGHT LOWER ABD, NO GUARDING AND REBOUND TENDERNESS. 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 as Tested, No Motor Deficits, Normal Affect, Normal Mood, No Sensory Deficits Cerebellar Function: Normal Reflexes: Normal Skin: Dry, Normal Color, Warm Peripheral Pulses: 2+ carotid (R), 2+ carotid (L) Lymphatic: No Adenopathy Labs/Diagnostic Data Labs Test 05/11/25 12:50 05/11/25 05:22 05/10/25 15:21 05/10/25 14:24 Range/Units Plasma/Serum Blood Alcohol < 3.0 <10 mg/dL White Blood Count 11.6 H 4.4-10.8 10^3/uL Red Blood Count 3.26 L 4.5-5.90 10^6/uL Hemoglobin 9.9 L 13.5-17.5 g/dL Hematocrit 28.9 L 41.0-53.0 % Mean Corpuscular Volume 88.8 80.0-100.0 fL Mean Corpuscular Hemoglobin 30.3 28.0-32.0 pg Mean Corpuscular Hemoglobin Concent 34.1 32.0-36.0 g/dL Red Cell Distribution Width 15.4 H 11.8-14.3 % Platelet Count 249 140-450 10^3/uL Mean Platelet Volume 8.4 6.9-10.8 fL Neutrophils (%) (Auto) 80.9 H 37.0-80.0 % Lymphocytes (%) (Auto) 10.0 10.0-50.0 % Monocytes (%) (Auto) 8.4 0.0-12.0 % Eosinophils (%) (Auto) 0.1 0.0-7.0 % Basophils (%) (Auto) 0.6 0.0-2.0 % Neutrophils # (Auto) 9.4 H 1.6-8.6 10 ^3/uL Lymphocytes # (Auto) 1.2 0.4-5.4 10 ^3/uL Monocytes # (Auto) 1.0 0-1.3 10 ^3/uL Eosinophils # (Auto) 0 0-0.8 10 ^3/uL Basophils # (Auto) 0.1 0-0.2 10 ^3/uL Nucleated Red Blood Cells 0.0 % Prothrombin Time 12.5 H 9.3-11.8 sec Prothrombin Time INR 1.20 H 0.9-1.15 Activated Partial Thromboplast Time 34.4 24.5-34.5 SEC Sodium Level 133 L 136-145 mmol/L Potassium Level 3.8 3.5-5.1 mmol/L Chloride Level 101 98-107 mmol/L Carbon Dioxide Level 21 20-31 mmol/L Anion Gap 11 5-15 Blood Urea Nitrogen 28 #H 9-23 mg/dL Creatinine 1.81 H 0.700-1.30 mg/dL Glomerular Filtration Rate Calc 44 >90 mL/min BUN/Creatinine Ratio 15.5 10.0-20.0 Serum Glucose 143 H 74-106 mg/dL Calcium Level 8.4 L 8.7-10.4 mg/dL Total Bilirubin 1.3 H 0.2-1.0 mg/dL Aspartate Amino Transferase (AST) 41 H 13-40 U/L Alanine Aminotransferase (ALT) 55 H 7-40 U/L Alkaline Phosphatase 175 H 46-116 U/L Total Protein 6.9 5.7-8.2 g/dL Albumin 3.6 3.2-4.8 g/dL Lactic Acid Level 0.8 0.4-2.0 mmol/L Lipase 104 H 12-53 U/L Test 05/10/25 13:56 Range/Units Urine Color Yellow Yellow Urine Clarity Hazy H Clear Urine pH 5.5 5.0-9.0 Urine Specific [place] 1.025 1.001-1.035 Urine Protein 1+ H Negative Urine Ketones 1+ H Negative Urine Blood Trace H Negative /uL Urine Nitrite Negative Negative Urine Bilirubin Negative Negative Urine Urobilinogen Normal Negative mg/dL Urine Leukocyte Esterase 2+ Negative /uL Urine RBC 3 0 - 3 /hpf Urine Microscopic WBC 53 H 0-3 /HPF Urine Squamous Epithelial Cells Few <5 /hpf Urine Bacteria Few H None Seen /hpf Urine Yeast (Budding) Occasional None Seen /hpf Urine Creatinine 169.33 H 30.0-125.0 mg/dL Urine Sodium 15 L 40-220 mmol/L Urine Glucose Normal Normal mg/dL Microbiology Date/Time Source Procedure Growth Status 05/10/25 13:56 Voided Urine Urine Culture - Preliminary No growth Resulted PATIENT: KRISTEN ARRIETA RICHARDACCT: [id number] UNIT: [id number] : 1970 LOC: [facility] ROOM / BED: [address] [place] [address] AGE / SEX: 55 / M ADM STATUS: ADM IN SERVICE 1207 ORDERING PHYSICIAN: KANG LEBLANC MD PROCEDURE(s): ABPL - CT AB PEL WO CON-NO ORAL OR IV REASON: Rule out kidney stones, patient also has pancreatitis ORDER NUMBER(s): [id number], ACCESSION NUMBER(s): [id number] CLINICAL HISTORY: Rule out kidney stones, patient also has pancreatitis TECHNIQUE: CT of the abdomen and pelvis was performed without IV contrast. This exam was performed according to our departmental dose optimization program. Up-to-date CT equipment and radiation dose reduction techniques are utilized as appropriate. CTDI 24 DLP 1262 COMPARISON: CT CT AB PEL WO CON-NO ORAL OR IV on DOS: 04/24/25, CT CT AB PEL WO CON-NO ORAL OR IV on DOS: 12/11/24, CT ABD PELVIS WO CONTRAST on DOS: 08/13/21 FINDINGS: Abdomen/Pelvis: The spleen, adrenal glands, pancreas, left kidney, bladder, and prostate gland are grossly unremarkable. There is an 8 mm proximal/mid right ureteral calculus resulting in moderate right hydroureteronephrosis. Hypodense right renal lesion is incompletely characterized due to lack of IV contrast. The liver is cirrhotic in morphology with nodular contour. There is a 3 mm The abdominal aorta is normal in course and caliber. There are minimal aortic atherosclerotic calcifications. There is no free intraperitoneal air or fluid. There is no enlarged abdominal pelvic lymph node. There is no bowel wall thickening or dilatation. The appendix is normal. There is mild colonic diverticulosis. There is a small fat containing umbilical hernia. Other: The imaged lower thorax demonstrate minimal linear atelectatic changes at both lung bases. No acute osseous abnormality is evident. IMPRESSION: 8 mm proximal/mid right ureteral calculus resulting in moderate right hydroureteronephrosis. Cirrhotic liver morphology. Mild colonic diverticulosis. Small gallstones. ATED BY: YOSELIN BARAHONA MD DICTATED DATE/TIME: 05/11/25 1350 SIGNED BY: YOSELIN BARAHONA MD SIGNED DATE/TIME: 05/11/25 1350 CC: Assessment Right hydronephrosis, moderate with no ureteral jetting reported on ultrasound 9 mm right nephrolithiasis Plan/Recommendation Right ureteroscope epic laser lithotripsy with renal evacuation (CVAC) and right ureteral stent placement tomorrow morning NPO after midnight Plan discussed with: Patient, Spouse, Other WILLIAM CHE MD May 11, 2025 15:09
[2025-05-11] MEDS: PANTOPRAZOLE 40 MG/10 ML VIAL INJ IV ONE (15:30)
[2025-05-11] MEDS: LIDOCAINE 2%HCL (LOCAL ANESTH.) INJ 20ML MDV ONE (16:27)
[2025-05-11] MEDS: fentaNYL CITRATE 100 MCG/2 ML VL ONE (16:27)
[2025-05-11] MEDS: MIDAZOLAM HCL 2MG/2ML 2ml VIAL (1mg/ml) ONE (16:28)
[2025-05-11] MEDS: IOHEXOL 350 MG/ML 100ML IJ ONE (17:17)
--- NOTE | 2025-05-11 17:29 | DVHINCON2 ---
Date of service: May 11, [address] Christine Reason for Consultation BISHOP History of Present Illness [place] is a 55-year-old male with known history of nephrolithiasis, baseline creatinine of around one who presented further evaluation and management of subacute progressive right-sided flank pain. Patient's was present and provided most of the history. Namely that of a relatively high pain tolerance for the patient. There is no history of gross hematuria, fevers or chills. Of note Mr. Parisi has been taking intermittent NSAIDs for pain control. Serum creatinine has improved slightly since admission. He has received intravenous antibiotics, IV fluids, he has been seen by Urology in consultation for a right- sided ureteral stone and associated obstructive uropathy. Past Medical History Hypertension Nephrolithiasis Allergies: Coded Allergies: NO KNOWN ALLERGIES (Unverified , 03/27/24) Home Meds Reported Medications Labetalol Hcl (Labetalol Hcl) 100 Mg Tab, 1 TAB PO BID 12/11/24 Amlodipine Besylate (Amlodipine Besylate) 10 Mg Tab, 1 TAB PO 12/11/24 Current Medications Current Medications Medications (Trade) Dose Ordered Sig/Abi Route PRN Reason Start Time Stop Time Status Last Admin Sodium Chloride (Saline Lock Ns) 10 ml Q8HR IV 05/10/25 22:00 05/11/25 13:33 Piperacillin Sod/ Tazobactam Sod 100 ml @ 25 mls/hr Q8HR IV 05/10/25 22:00 05/11/25 12:11 DC 05/11/25 06:30 Tamsulosin HCl (Flomax) 0.4 mg QPM PO 05/10/25 18:00 05/10/25 21:47 Hydralazine HCl (Apresoline Injection) 10 mg Q6HP PRN IV SBP>150 05/10/25 17:30 Ceftriaxone Sodium 50 ml @ 100 mls/hr DAILY@09 IV 05/12/25 09:00 Pantoprazole Sodium (Protonix) 40 mg DAILY IV 05/12/25 10:00 Family History: FHx: rheumatoid arthritis G8 MOTHER FHx: seizures G8 FATHER, Review of Systems As per history of present illness otherwise all systems are reviewed and are noncontributory. H&P Exam Vital Signs/I&O Vital Sign Date Time Temp Pulse Resp B/P (MAP) Pulse Ox O2 Delivery O2 Flow Rate FiO2 12/12/25 13:00 100.4 93 18 125/78 (94) 95 100.4 05/11/25 08:00 Room Air* 0 21 Intake and Output 05/10/25 05/11/25 19:00 07:00 Intake Total 1300 ml 900 ml Balance 1300 ml 900 ml Intake Oral 900 ml IV Total 1300 ml # Voids 2 # Bowel Movements 1 Physical Exam Gen: nad heent: nc/at, mmm lungs: cta anteriorly cvs: no rub abd: soft, bowel sounds audible ext: no edema skin: no rash neuro: alert and oriented Labs/Diagnostic Data Labs/Diagnostic Data Laboratory Tests Test 05/11/25 12:50 05/11/25 05:22 05/10/25 15:21 05/10/25 14:24 Range/Units C-Reactive Protein High Sensitivity > 20.00 H <1.0 mg/dL Plasma/Serum Blood Alcohol < 3.0 <10 mg/dL White Blood Count 11.6 H 12.8 H 4.4-10.8 10^3/uL Red Blood Count 3.26 L 3.63 L 4.5-5.90 10^6/uL Hemoglobin 9.9 L 10.9 L 13.5-17.5 g/dL Hematocrit 28.9 L 32.0 L 41.0-53.0 % Mean Corpuscular Volume 88.8 88.0 80.0-100.0 fL Mean Corpuscular Hemoglobin 30.3 30.0 28.0-32.0 pg Mean Corpuscular Hemoglobin Concent 34.1 34.1 32.0-36.0 g/dL Red Cell Distribution Width 15.4 H 15.1 H 11.8-14.3 % Platelet Count 249 267 140-450 10^3/uL Mean Platelet Volume 8.4 8.1 6.9-10.8 fL Neutrophils (%) (Auto) 80.9 H 84.9 H 37.0-80.0 % Lymphocytes (%) (Auto) 10.0 7.5 L 10.0-50.0 % Monocytes (%) (Auto) 8.4 7.3 0.0-12.0 % Eosinophils (%) (Auto) 0.1 0.1 0.0-7.0 % Basophils (%) (Auto) 0.6 0.2 0.0-2.0 % Neutrophils # (Auto) 9.4 H 10.9 H 1.6-8.6 10 ^3/uL Lymphocytes # (Auto) 1.2 1.0 0.4-5.4 10 ^3/uL Monocytes # (Auto) 1.0 0.9 0-1.3 10 ^3/uL Eosinophils # (Auto) 0 0 0-0.8 10 ^3/uL Basophils # (Auto) 0.1 0 0-0.2 10 ^3/uL Nucleated Red Blood Cells 0.0 0.0 % Erythrocyte Sedimentation Rate 106 H 0-20 mm/hr Prothrombin Time 12.5 H 9.3-11.8 sec Prothrombin Time INR 1.20 H 0.9-1.15 Activated Partial Thromboplast Time 34.4 24.5-34.5 SEC Sodium Level 133 L 132 L 136-145 mmol/L Potassium Level 3.8 3.6 3.5-5.1 mmol/L Chloride Level 101 98 98-107 mmol/L Carbon Dioxide Level 21 22 20-31 mmol/L Anion Gap 11 12 5-15 Blood Urea Nitrogen 28 #H 38 H 9-23 mg/dL Creatinine 1.81 H 2.04 H 0.700-1.30 mg/dL Glomerular Filtration Rate Calc 44 38 >90 mL/min BUN/Creatinine Ratio 15.5 18.6 10.0-20.0 Serum Glucose 143 H 153 H 74-106 mg/dL Calcium Level 8.4 L 9.2 8.7-10.4 mg/dL Total Bilirubin 1.3 H 1.5 H 0.2-1.0 mg/dL Aspartate Amino Transferase (AST) 41 H 44 H 13-40 U/L Alanine Aminotransferase (ALT) 55 H 54 H 7-40 U/L Alkaline Phosphatase 175 H 171 H 46-116 U/L Total Protein 6.9 7.6 5.7-8.2 g/dL Albumin 3.6 4.1 3.2-4.8 g/dL Lactic Acid Level 0.8 0.4-2.0 mmol/L Lipase 104 H 12-53 U/L Test 05/10/25 13:56 Range/Units Urine Color Yellow Yellow Urine Clarity Hazy H Clear Urine pH 5.5 5.0-9.0 Urine Specific [place] 1.025 1.001-1.035 Urine Protein 1+ H Negative Urine Ketones 1+ H Negative Urine Blood Trace H Negative /uL Urine Nitrite Negative Negative Urine Bilirubin Negative Negative Urine Urobilinogen Normal Negative mg/dL Urine Leukocyte Esterase 2+ Negative /uL Urine RBC 3 0 - 3 /hpf Urine Microscopic WBC 53 H 0-3 /HPF Urine Squamous Epithelial Cells Few <5 /hpf Urine Bacteria Few H None Seen /hpf Urine Yeast (Budding) Occasional None Seen /hpf Urine Creatinine 169.33 H 30.0-125.0 mg/dL Urine Sodium 15 L 40-220 mmol/L Urine Glucose Normal Normal mg/dL Assessment IMP: 1) Hemodynamically mediated acute kidney injury in setting of possible mild volume deplete state, concurrent use of NSAIDs + obstructive uropathy 2) CKD stage II 3) nephrolithiasis 4) hypertension REC: - IV fluids to maintain even to slightly positive fluid balance - urology to determine definitive plan of care and treatment - general recommendations to avoid NSAIDs, intravenous contrast studies if able. - discussed with patient's family. Plan discussed with: Spouse JAMES MARES MD May 11, 2025 17:29
[2025-05-11] MEDS: ACETAMINOPHEN 325 MG TAB PO PRN (17:35)
[2025-05-11] MEDS: SODIUM CHLORIDE 0.9% 1,000 ML IV ONE ×2 (17:45→18:30)
[2025-05-11] MEDS: dilTIAZem 25 MG/5 ML VIAL IV ONE ×2 (17:50→17:51)
[2025-05-11] MEDS ORDERED: VANCOMYCIN PER PHARMACY 0 MG IV SCH (18:30)
[2025-05-11] MEDS ORDERED: PIPERACILLIN-TAZOB 3.375GM 100 ML IV SCH ×2 (19:15→22:00)
[2025-05-11] MEDS: SODIUM CHLORIDE 0.9% 1,000 ML IV SCH (19:15)
[2025-05-11] MEDS: METOPROLOL TARTRATE 25 MG TAB PO ONE (19:27)
[2025-05-11] MEDS: VANCOMYCIN 1GM/250ML IV SCH (19:39)
[2025-05-11 20:00] LABS: Chloride 105 mmol/L (98-107); Potassium 3.8 mmol/L (3.5-5.1); Sodium 137 mmol/L (136-145)
[2025-05-11 20:01] LABS: Anion Gap 14 (5-15)
[2025-05-11 20:05] LABS: Calcium 7.9 mg/dL (8.7-10.4); Carbon Dioxide 18 mmol/L (20-31)
[2025-05-11 20:06] LABS: BUN/Creatinine Ratio 11.7 (10.0-20.0); Blood Urea Nitrogen 19 mg/dL (9-23); Glucose 85 mg/dL (74-106)
[2025-05-11] MEDS: METOPROLOL TARTRATE 25 MG TAB PO SCH (20:06)
[2025-05-11] MEDS: HYDROcodone-ACET 5/325MG TAB PO PRN (20:45)
[2025-05-11 21:04] LABS: Hematocrit 28.1 % (41.0-53.0); Hemoglobin 9.6 g/dL (13.5-17.5); Mean Corpuscular Hemoglobin 30.0 pg (28.0-32.0); Mean Corpuscular Volume 88.2 fL (80.0-100.0); Nucleated Red Blood Cells % 0.0 %
[2025-05-11] MEDS ORDERED: VANCOMYCIN 1GM/250ML KIT 250 ML IV SCH (21:15)
[2025-05-11] MEDS: PIPERACILLIN-TAZOB 3.375GM 100 ML IV ONE (21:44)
--- NOTE | 2025-05-11 21:46 | DVH ---
PROCEDURE: Right NEPHROSTOMY TUBE PLACEMENT HISTORY: NEPHROSTOMY TUBE PLACEMENT OPERATORS: Avila Goff DOCUMENTATION: Informed consent was obtained and a procedural time out was performed. SEDATION: Moderate sedation was utilized during the procedure. The patient received benzodiazepines and opioids, the dosing of which was documented in the patient s permanent medical record. Pre-sedation history and evaluation revealed no contraindications to sedation. The patient s level of consciousness and physiologic status was monitored continuously by the physician and nursing staff throughout the procedure. Total intra-service moderate sedation time was 30 minutes. FLUORO TIME: 1 minutes Dose: 11 mGy air kerma TECHNIQUE: The skin over the patient's back/flank was sterilely prepped, draped, and infiltrated with 1% lidocaine. A 22-gauge INRAD needle was used to access a right lower renal calyx under real-time ultrasound guidance with an image archived in the PACS. Once urine was aspirated, dilute contrast was injected to confirm positioning. An Steph set was used to gain definitive access to the calyx. A guidewire was coiled in the renal pelvis and an 8 [place] APD was placed under fluoroscopy. The catheter was injected with contrast and a spot radiograph obtained. The catheter was sutured and Stat locked in place and connected to gravity drainage. FINDINGS: There is right hydronephrosis. The final images demonstrate right nephrostomy to be in satisfactory position. Purulent material was aspirated with a sample sent for laboratory evaluation. No immediate complications were encountered. IMPRESSION: SUCCESSFUL right NEPHROSTOMY TUBE PLACEMENT.
--- NOTE | 2025-05-11 23:37 | DVHINCON2 ---
Date of service: May 11, 2025 Referring Physician Bairon Reason for Consultation SVT History of Present Illness This is a 55 year old male with a PMH of HTN, Kidney Stones who presented to the ED with complaints of right flank pain x1 week. Patient states he recently had a CT scan done which revealed mild right hydroureteronephrosis with 9 mm obstructing proximal ureteral calculus. Patient was instructed by his PCP to com e to the ED for admission and treatment. HGB 9.6, HCT 28.1, HYDROBLASTER 1.62. Chest x- ray shows NAD. EKG showed tachycardia at 118. CT abd/pel shows a 8 mm proximal/mid right ureteral calculus resulting in moderate right hydroureteronephrosis. Cirrhotic liver morphology. Mild colonic diverticulosis. Small gallstones. Abdominal US is WNL. Patient was admitted to the hospital. I am asked to consult on this patient. Family History: FHx: rheumatoid arthritis G8 MOTHER FHx: seizures G8 FATHER, Allergies: Coded Allergies: NO KNOWN ALLERGIES (Unverified , 03/27/24) Home Meds Reported Medications Labetalol Hcl (Labetalol Hcl) 100 Mg Tab, 1 TAB PO BID 12/11/24 Amlodipine Besylate (Amlodipine Besylate) 10 Mg Tab, 1 TAB PO 12/11/24 Current Medications Current Medications Medications (Trade) Dose Ordered Sig/Abi Route PRN Reason Start Time Stop Time Status Last Admin Ceftriaxone Sodium 50 ml @ 100 mls/hr DAILY@09 IV 05/12/25 09:00 05/11/25 18:37 DC Pantoprazole Sodium (Protonix) 40 mg DAILY IV 05/12/25 10:00 Piperacillin Sod/ Tazobactam Sod 100 ml @ 25 mls/hr Q8HR IV 05/11/25 22:00 05/11/25 19:15 DC Sodium Chloride 1,000 ml @ 100 mls/hr Q10H IV 05/11/25 18:30 05/11/25 20:46 Vancomycin HCl 0 ml @ 0 mls/hr PER PHARMACY IV 05/11/25 18:30 UNV Metoprolol Tartrate (Lopressor Tablet) 25 mg BID PO 05/11/25 22:00 Vancomycin HCl 250 ml @ 250 mls/hr Q1H IV 05/11/25 20:00 05/11/25 21:59 DC 05/11/25 20:54 Piperacillin Sod/ Tazobactam Sod 100 ml @ 25 mls/hr Q8HR IV 05/12/25 06:00 Piperacillin Sod/ Tazobactam Sod 100 ml @ 25 mls/hr Q8HR IV 05/11/25 19:15 05/11/25 20:57 DC Vancomycin HCl 250 ml @ 125 mls/hr Q2H IV 05/11/25 21:15 05/12/25 01:14 Cancel Review of Systems Constitutional: denies: chills, diaphoresis, fatigue, fever, malaise, sweats, weakness, others EENTM: denies: blurred vision, double vision, ear bleeding, ear discharge, ear drainage, ear pain, ear ringing, eye pain, eye redness, hearing loss, mouth pain, mouth swelling, nasal discharge, nose bleeding, nose congestion, nose pain, photophobia, tearing, throat pain, throat swelling, voice changes, others Respiratory: denies: cough, hemoptysis, orthopnea, SOB at rest, shortness of breath, SOB with excertion, stridor, wheezing, others Cardiovascular: denies: chest pain, dizzy spells, diaphoresis, Dyspnea on exertion, edema, irregular heart beat, left arm pain, lightheadedness, palpitations, PND, syncope, others Gastrointestinal: reports: abdominal pain; denies: abdomen distended, blood str eaked bowels, constipated, diarrhea, dysphagia, difficulty swallowing, hematemesis, melena, nausea, poor appetite, poor fluid intake, rectal bleeding, rectal pain, vomiting, others Genitourinary: reports: flank pain, frequency; denies: burning, dysuria, hematuria, incontinence, penile discharge, penile sore, pain, testicle pain, testicle swelling, urgency, others Neurological: denies: dizziness, fainting, headache, left sided numbness, left sided weakness, numbness, paresthesia, pre-existing deficit, right sided numbness, right sided weakness, seizure, speech problems, tingling, tremors, weakness, others Musculoskeletal: denies: back pain, gout, joint pain, joint swelling, muscle pain, muscle stiffness, neck pain, others Integumetry: denies: bruises, change in color, change in hair/nails, dryness, laceration, lesions, lumps, rash, wounds, others Allergic/Immunocompromised: denies: Difficulty Healing, Frequent Infections, Hives, Itching, others Hematologic/Lymphatic: denies: anemia, blood clots, easy bleeding, easy bruising, swollen glands, others Endocrine: denies: excessive hunger, excessive sweating, excessive thirst, excessive urination, flushing, intolerance to cold, intolerance to heat, u nexplained weight gain, unexplained weight loss, others Psychiatric: denies: anxiety, bipolar disorder, depression, hopeless, panic disorder, schizophrenia, sleepless, suicidal, others All Other Systems: Reviewed and Negative Vital Signs Vital Signs Date Time Temp Pulse Resp B/P (MAP) Pulse Ox O2 Delivery O2 Flow Rate FiO2 05/11/25 20:24 101.0 05/11/25 19:55 124 20 150/64 (92) 92 05/11/25 08:00 Room Air* 0 21 Physical Exam GENERAL: Alert and oriented x 3. No acute distress. EYES: PERRL, EOMI. Anicteric. HENT: Moist mucous membranes. LUNGS: Clear to auscultation bilaterally. CARDIOVASCULAR: Regular rate and rhythm. ABDOMEN: RLQ TTP. EXTREMITIES: No edema. NEUROLOGIC: No focal neurological deficits. SKIN: Warm, dry. Labs/Diagnostic Data Labs Test 05/11/25 20:45 05/11/25 19:25 05/11/25 12:50 05/11/25 05:22 Range/Units White Blood Count 10.5 4.4-10.8 10^3/uL Red Blood Count 3.18 L 4.5-5.90 10^6/uL Hemoglobin 9.6 L 13.5-17.5 g/dL Hematocrit 28.1 L 41.0-53.0 % Mean Corpuscular Volume 88.2 80.0-100.0 fL Mean Corpuscular Hemoglobin 30.0 28.0-32.0 pg Mean Corpuscular Hemoglobin Concent 34.0 32.0-36.0 g/dL Red Cell Distribution Width 15.5 H 11.8-14.3 % Platelet Count 253 140-450 10^3/uL Mean Platelet Volume 8.1 6.9-10.8 fL Neutrophils (%) (Auto) 93.1 H 37.0-80.0 % Lymphocytes (%) (Auto) 5.7 L 10.0-50.0 % Monocytes (%) (Auto) 1.1 0.0-12.0 % Eosinophils (%) (Auto) 0.0 0.0-7.0 % Basophils (%) (Auto) 0.1 0.0-2.0 % Neutrophils # (Auto) 9.8 H 1.6-8.6 10 ^3/uL Lymphocytes # (Auto) 0.6 0.4-5.4 10 ^3/uL Monocytes # (Auto) 0.1 0-1.3 10 ^3/uL Eosinophils # (Auto) 0 0-0.8 10 ^3/uL Basophils # (Auto) 0 0-0.2 10 ^3/uL Nucleated Red Blood Cells 0.0 % Sodium Level 137 136-145 mmol/L Potassium Level 3.8 3.5-5.1 mmol/L Chloride Level 105 98-107 mmol/L Carbon Dioxide Level 18 L 20-31 mmol/L Anion Gap 14 5-15 Blood Urea Nitrogen 19 9-23 mg/dL Creatinine 1.62 H 0.700-1.30 mg/dL Glomerular Filtration Rate Calc 50 >90 mL/min BUN/Creatinine Ratio 11.7 10.0-20.0 Serum Glucose 85 74-106 mg/dL Calcium Level 7.9 L 8.7-10.4 mg/dL Lactate Dehydrogenase 179 120-246 U/L C-Reactive Protein High Sensitivity > 20.00 H <1.0 mg/dL Plasma/Serum Blood Alcohol < 3.0 <10 mg/dL Erythrocyte Sedimentation Rate 106 H 0-20 mm/hr Prothrombin Time 12.5 H 9.3-11.8 sec Prothrombin Time INR 1.20 H 0.9-1.15 Activated Partial Thromboplast Time 34.4 24.5-34.5 SEC Total Bilirubin 1.3 H 0.2-1.0 mg/dL Aspartate Amino Transferase (AST) 41 H 13-40 U/L Alanine Aminotransferase (ALT) 55 H 7-40 U/L Alkaline Phosphatase 175 H 46-116 U/L Total Protein 6.9 5.7-8.2 g/dL Albumin 3.6 3.2-4.8 g/dL Test 05/10/25 15:21 05/10/25 14:24 05/10/25 13:56 Range/Units Lactic Acid Level 0.8 0.4-2.0 mmol/L Lipase 104 H 12-53 U/L Urine Color Yellow Yellow Urine Clarity Hazy H Clear Urine pH 5.5 5.0-9.0 Urine Specific [place] 1.025 1.001-1.035 Urine Protein 1+ H Negative Urine Ketones 1+ H Negative Urine Blood Trace H Negative /uL Urine Nitrite Negative Negative Urine Bilirubin Negative Negative Urine Urobilinogen Normal Negative mg/dL Urine Leukocyte Esterase 2+ Negative /uL Urine RBC 3 0 - 3 /hpf Urine Microscopic WBC 53 H 0-3 /HPF Urine Squamous Epithelial Cells Few <5 /hpf Urine Bacteria Few H None Seen /hpf Urine Yeast (Budding) Occasional None Seen /hpf Urine Creatinine 169.33 H 30.0-125.0 mg/dL Urine Sodium 15 L 40-220 mmol/L Urine Glucose Normal Normal mg/dL Microbiology Date/Time Source Procedure Growth Status 05/10/25 13:56 Voided Urine Urine Culture - Preliminary No growth Resulted Assessment Acute pyelonephritis. Hydronephrosis with obstructing calculus. Anemia. Sepsis due to urinary tract infection. SVT. HTN. Plan/Recommendation I agree with your ongoing assessment and care of plan. Echocardiogram. Dilaudid and [place] for pain management. IV Hydralazine for SBP >160. Metoprolol. IV antibiotics as ordered. GI prophylactics. Additional plan as per the hospital course. Critical care time of 90 minutes provided to include time spent evaluation of patient at bedside, when appropriate patient/family education for diagnosis, treatment plan, review of pertinent medical information and discussion of care with specialty providers and PCP. Plan discussed with: Patient BARBARA MAGANA MD May 11, 2025 22:41
[2025-05-12] VITALS (24 sets, daily range): BP systolic 90–128; BP diastolic 57–75; PULSE 67–108; RESP 13–32; TEMP 97.2–101; O2SAT 92–99
[2025-05-12 03:00] LABS: Hematocrit 27.1 % (41.0-53.0); Hemoglobin 9.2 g/dL (13.5-17.5); Mean Corpuscular Hemoglobin 30.3 pg (28.0-32.0); Mean Corpuscular Volume 89.3 fL (80.0-100.0); Nucleated Red Blood Cells % 0.0 %
[2025-05-12 03:16] LABS: Anion Gap 13 (5-15); BUN/Creatinine Ratio 10.7 (10.0-20.0); Chloride 103 mmol/L (98-107); Magnesium 1.7 mg/dL (1.6-2.6); Potassium 4.2 mmol/L (3.5-5.1); Sodium 136 mmol/L (136-145); Total Protein 6.2 g/dL (5.7-8.2)
[2025-05-12 03:17] LABS: Alanine Aminotransferase 48 U/L (7-40); Albumin 3.2 g/dL (3.2-4.8); Alkaline Phosphatase 196 U/L (46-116); Bilirubin, Total 1.9 mg/dL (0.2-1.0); Blood Urea Nitrogen 27 mg/dL (9-23); Calcium 7.7 mg/dL (8.7-10.4); Carbon Dioxide 20 mmol/L (20-31); Glucose 119 mg/dL (74-106)
[2025-05-12 03:20] LABS: Iron 10.0 ug/dL (65-175); Total Iron Binding Capacity 173.0 ug/dL (250-425)
[2025-05-12] MEDS: PIPERACILLIN-TAZOB 3.375GM 100 ML IV SCH (05:41)
[2025-05-12] MEDS: PANTOPRAZOLE 40 MG/10 ML VIAL INJ IV SCH (09:09)
--- NOTE | 2025-05-12 10:36 | DVHPN2 ---
Reviewed: Care Plan Changes from previous H/P or p: No Changes Objective Vitals Vital Signs Date Time Temp Pulse Resp B/P (MAP) Pulse Ox O2 Delivery O2 Flow Rate FiO2 05/12/25 09:13 76 15 105/66 (79) 97 05/12/25 08:00 Nasal Cannula* 1 24 05/12/25 08:00 97.9 97.9 Intake/Output Intake and Output 05/12/25 07:00 Intake Total 1785 ml Output Total 0 ml Balance 1785 ml Intake Oral 50 ml IV Total 1735 ml Output Drainage Total 0 ml # Voids 1 Medications Current Medications Medications Dose Ordered Sig/Abi Route Start Time Stop Time Status Last Admin Dose Admin Sodium Chloride 10 ml Q8HR IV 05/10/25 22:00 05/12/25 05:41 10 ML Docusate Sodium 100 mg BIDPRN PRN PO 05/10/25 17:15 Acetaminophen 650 mg Q6HP PRN PO 05/10/25 17:15 05/12/25 00:18 650 MG Acetaminophen/ Hydrocodone Bitart 1 tab Q4HP PRN PO 05/10/25 17:15 05/11/25 20:45 1 TAB Hydromorphone HCl 0.5 mg Q4HP PRN IV 05/10/25 17:15 Ondansetron HCl 4 mg Q4HP PRN IV 05/10/25 17:15 Tamsulosin HCl 0.4 mg QPM PO 05/10/25 18:00 05/10/25 21:47 0.4 MG Hydralazine HCl 10 mg Q6HP PRN IV 05/10/25 17:30 Pantoprazole Sodium 40 mg DAILY IV 05/12/25 10:00 05/12/25 09:09 40 MG Sodium Chloride 1,000 ml @ 100 mls/hr Q10H IV 05/11/25 18:30 05/12/25 06:09 100 MLS/HR Vancomycin HCl 0 ml @ 0 mls/hr PER PHARMACY IV 05/11/25 18:30 Metoprolol Tartrate 25 mg BID PO 05/11/25 22:00 05/12/25 09:13 25 MG Vancomycin HCl 250 ml @ 125 mls/hr Q2H IV 05/11/25 21:15 05/12/25 01:14 Cancel Ceftriaxone Sodium 50 ml @ 100 mls/hr DAILY@09 IV 05/12/25 09:00 05/12/25 09:08 100 MLS/HR Laboratory Results Laboratory Tests 05/12/25 02:22 Chemistry Test 05/11/25 19:25 05/12/25 02:22 Calcium Level 7.9 mg/dL (8.7-10.4) L 7.7 mg/dL (8.7-10.4) L Albumin 3.2 g/dL (3.2-4.8) Magnesium Level 1.7 mg/dL (1.6-2.6) Total Protein 6.2 g/dL (5.7-8.2) LFT Test 05/12/25 02:22 Alanine Aminotransferase (ALT) 48 U/L (7-40) H Alkaline Phosphatase 196 U/L (46-116) H Aspartate Amino Transferase (AST) 56 U/L (13-40) H Total Bilirubin 1.9 mg/dL (0.2-1.0) H Urinalysis Test 05/10/25 13:56 Urine Color Yellow (Yellow) Urine Clarity Hazy (Clear) H Urine pH 5.5 (5.0-9.0) Urine Specific [place] 1.025 (1.001-1.035) Urine Protein 1+ (Negative) H Urine Ketones 1+ (Negative) H Urine Blood Trace /uL (Negative) H Urine Nitrite Negative (Negative) Urine Bilirubin Negative (Negative) Urine Urobilinogen Normal mg/dL (Negative) Urine Leukocyte Esterase 2+ /uL (Negative) Urine RBC 3 /hpf (0 - 3) Urine Microscopic WBC 53 /HPF (0-3) H Urine Squamous Epithelial Cells Few /hpf (<5) Urine Bacteria Few /hpf (None Seen) H Urine Yeast (Budding) Occasional /hpf (None Urine Creatinine 169.33 mg/dL (30.0-125.0) H Urine Sodium 15 mmol/L (40-220) L Urine Glucose Normal mg/dL (Normal) Microbiology Microbiology Date/Time Source Procedure Growth Status 05/10/25 13:56 Voided Urine Urine Culture - Preliminary No growth Resulted Labs and/or images reviewed: Labs reviewed by me, Image(s) reviewed by me Assessment/Plan Assessment/Plan Acute right flank pain Sepsis secondary to urinary tract infection blood cultures urine cultures Rocephin Acute pyelonephritis: Bacteremia with Klebsiella pneumoniae: DC previous antibiotics, start Rocephin 1 g IV daily 8 mm proximal/mid right ureteral calculus resulting in moderate right hydroureteronephrosis: Dr Coates planning for ESWL once stable Moderate right hydronephrosis: Consult for Urology Dr. Coates Acute pancreatitis lipase 106, NPO, IV fluids, consult for GI Dr. Patricia Benítez Acute metabolic encephalopathy Anemia of chronic disease SVT: Cardiology consult by Dr. Barahona appreciated Hypertension Blood alcohol level negative Time spent 65 minutes Patient was transferred to [facility] for tachycardia after nephrostomy tube placement Patient seen in [facility] Plan discussed with: Patient My Orders Orders - KANG LEBLANC MD Procedure Category Date Status Time Ct Ab Pel Wo Con-No CT 05/11/25 Resulted Oral Or Iv 12:07 Blood Culture ELBA 05/11/25 In Process 12:08 * Gi [facility] Sales Account Manager CONS 05/11/25 Transmitted 12:10 Drug Screen LAB 05/11/25 Logged 12:12 * Urology Consult CONS 05/11/25 Transmitted 12:17 Percutaneous XY 05/11/25 Resulted Nephrostomy 16:57 Ceftriaxone 1gm/50ml PHA 05/12/25 In Process (Rocephin) 09:00 Regular Diet DIET 05/12/25 Transmitted Lunch Date of Service: May 12, 2025 Billing Provider: KANG LEBLANC MD Common Visit Codes: [id number] INP/OBS CARE(HIGH) KANG LEBLANC MD May 12, 2025 10:36
--- NOTE | 2025-05-12 11:00 | DVHPN2 ---
Progress Note Date Seen: May 12, 2025 Resident Creating Document: SOY CROWLEY RESIDENT Medical Necessity Reason Pt with a Central, PICC or Fol: No Subjective Review of Systems 55-year-old male presents to the ER with a chief complaint of right flank pain for the past 1 week. Patient reports that his nephrostomy tube started to come out, reports fevers and chills. Patient was admitted in this facility in November 2024 and underwent Right nephrostomy tube placed, he follows up with Urology GI consulted for acute pancreatitis Past medical/surgical history: Hypertension, kidney stones Social history: Denies smoking drinking drug use 05/11 Patient seen and examined in the ER. CT abdomen showed 8 mm proximal/mid right ureteral calculus resulting in moderate right hydroureteronephrosis. Cirrhotic liver morphology. Mild colonic diverticulosis. Small gallstones. 05/12-patient seen, had a BM this morning. Right nephrostomy tube placed overnight. Denies abdominal pain. Denies nausea vomiting. Abdomen soft nontender Objective vital signs Vital Sign Date Time Temp Pulse Resp B/P (MAP) Pulse Ox O2 Delivery O2 Flow Rate FiO2 05/12/25 09:13 76 15 105/66 (79) 97 05/12/25 08:00 Nasal Cannula* 1 24 05/12/25 08:00 97.9 97.9 Total Intake and Output 05/11/25 05/11/25 05/12/25 15:00 23:00 07:00 Intake Total 100 ml 800 ml 885 ml Output Total 0 ml Balance 100 ml 800 ml 885 ml medications Current Medications Medications Dose Ordered Sig/Abi Route Start Time Stop Time Status Last Admin Dose Admin Sodium Chloride 10 ml Q8HR IV 05/10/25 22:00 05/12/25 05:41 10 ML Docusate Sodium 100 mg BIDPRN PRN PO 05/10/25 17:15 Acetaminophen 650 mg Q6HP PRN PO 05/10/25 17:15 05/12/25 00:18 650 MG Acetaminophen/ Hydrocodone Bitart 1 tab Q4HP PRN PO 05/10/25 17:15 05/11/25 20:45 1 TAB Hydromorphone HCl 0.5 mg Q4HP PRN IV 05/10/25 17:15 Ondansetron HCl 4 mg Q4HP PRN IV 05/10/25 17:15 Tamsulosin HCl 0.4 mg QPM PO 05/10/25 18:00 05/10/25 21:47 0.4 MG Hydralazine HCl 10 mg Q6HP PRN IV 05/10/25 17:30 Pantoprazole Sodium 40 mg DAILY IV 05/12/25 10:00 05/12/25 09:09 40 MG Sodium Chloride 1,000 ml @ 100 mls/hr Q10H IV 05/11/25 18:30 05/12/25 06:09 100 MLS/HR Vancomycin HCl 0 ml @ 0 mls/hr PER PHARMACY IV 05/11/25 18:30 Metoprolol Tartrate 25 mg BID PO 05/11/25 22:00 05/12/25 09:13 25 MG Vancomycin HCl 250 ml @ 125 mls/hr Q2H IV 05/11/25 21:15 05/12/25 01:14 Cancel Ceftriaxone Sodium 50 ml @ 100 mls/hr DAILY@09 IV 05/12/25 09:00 05/12/25 09:08 100 MLS/HR Examination Obese male patient lying in the bed comfortably, no acute distress General: Obese, low-grade fevers, palor, mucosae are moist Cardiovascular: Regular S1 and S2. No murmurs, gallops or rubs. No JVD elevation. No pedal edema Respiratory: Normal B/L air entry on room air. Clear lung sounds on auscultation Abdomen: Soft, nontender, nondistended, normoactive bowel sounds, no rebound tenderness, no organomegaly, no masses Genitourinary: Deferred MSK/skin: Mobilizes 4 limbs. Skin is dry and warm laboratory and microbiology Laboratory Tests 05/12/25 02:22 Test 05/12/25 02:22 Range/Units Serum Glucose 119 H 74-106 mg/dL Microbiology Date/Time Source Procedure Growth Status 05/10/25 13:56 Voided Urine Urine Culture - Preliminary Resulted Labs and/or images reviewed: Labs reviewed by me, Image(s) reviewed by me Problem List/Assessment/Plan Problem List/Assessment/Plan Abdominal pain likely secondary to 8 mm right ureteral calculus status post right nephrostomy tube placement moderate right hydroureteronephrosis Anemia likely chronic disease Sepsis due to above Colonic diverticulosis Cholelithiasis but no cholecystitis Transaminitis likely due to sepsis CT abdomen shows 8 mm proximal/mid right ureteral calculus resulting in moderate right hydroureteronephrosis. Cirrhotic liver morphology. Mild colonic diverticulosis. Small gallstones. Abdominal ultrasound is unremarkable, The liver is homogenous in echogenicity. The liver measures 18.2 cm cm. No intrahepatic biliary ductal dilatation is noted. The gallbladder wall measures 0.27 cm and is unremarkable. Sludge and stones are noted in the gallbladder. The common duct not visualized. Negative sonographic Hopkins's sign Plan: Recommendation: Dr. Benítez Patient underwent right nephrostomy tube placement. Reports feeling better. Patient does not have acute cholecystitis at this time. Patient does not have abdominal pain or CT findings consistent with pancreatitis. We will continue to follow up. Iron panel demonstrated above anemia of chronic disease, increased ferritin, low TIBC Bilirubin and LFTs slightly trended up, follow up with CMP. We will consult MRCP if further increases seen Continue IV fluids, IV antibiotics, clear liquid diet, advanced as tolerated Urology consultation appreciated - Right ureteroscope epic laser lithotripsy with renal evacuation (CVAC) and right ureteral stent placement tomorrow morning. Follow up with hepatitis panel Follow up with blood culture, urine culture Antiemetics, pain control Protonix 40 mg IV daily Diet regular Plan discussed with patient in which all questions have been answered Case discussed with Dr. Benítez Plan discussed with: Patient, Spouse My Orders My Orders Orders - SOY CROWLEY Procedure Category Date Status Time Abdomen Complete US 05/11/25 Resulted Sonogram 13:26 Pantoprazole PHA 05/12/25 In Process (Protonix) 10:00 Hepatitis B Surface LAB 05/11/25 In Process Antibody 15:29 Hepatitis B Surface LAB 05/11/25 In Process Antigen 15:29 Hepatitis C Antibody LAB 05/11/25 In Process 15:29 Heparin In Ns PHA 05/11/25 In Process 1000units/500ml 16:27 SOY CROWLEY May 12, 2025 11:00
--- NOTE | 2025-05-12 12:22 | ECG ---
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
--- NOTE | 2025-05-12 14:56 | DVHPN2 ---
Progress Note - Dictate Date Seen: May 12, 2025 Has the PT tested + for MRSA If YES, has PT been informed?: No Medical Necessity Reason Pt with a Central, PICC or Fol: Yes Medical Necessity Reason Bacteremia 9 mm right renal stone moderate hydronephrosis s/p right PNT placement per IR Subjective Doing well vital signs Vital Sign Date Time Temp Pulse Resp B/P (MAP) Pulse Ox O2 Delivery O2 Flow Rate FiO2 05/12/25 14:00 75 24 99/58 (72) 96 05/12/25 12:00 Room Air* 0 21 05/12/25 08:00 97.9 97.9 Total Intake and Output 05/11/25 05/11/25 05/12/25 15:00 23:00 07:00 Intake Total 100 ml 800 ml 885 ml Output Total 0 ml Balance 100 ml 800 ml 885 ml medications Current Medications Medications Dose Ordered Sig/Abi Route Start Time Stop Time Status Last Admin Dose Admin Sodium Chloride 10 ml Q8HR IV 05/10/25 22:00 05/12/25 13:47 10 ML Docusate Sodium 100 mg BIDPRN PRN PO 05/10/25 17:15 Acetaminophen 650 mg Q6HP PRN PO 05/10/25 17:15 05/12/25 00:18 650 MG Acetaminophen/ Hydrocodone Bitart 1 tab Q4HP PRN PO 05/10/25 17:15 05/11/25 20:45 1 TAB Hydromorphone HCl 0.5 mg Q4HP PRN IV 05/10/25 17:15 Ondansetron HCl 4 mg Q4HP PRN IV 05/10/25 17:15 Tamsulosin HCl 0.4 mg QPM PO 05/10/25 18:00 05/10/25 21:47 0.4 MG Hydralazine HCl 10 mg Q6HP PRN IV 05/10/25 17:30 Pantoprazole Sodium 40 mg DAILY IV 05/12/25 10:00 05/12/25 09:09 40 MG Sodium Chloride 1,000 ml @ 100 mls/hr Q10H IV 05/11/25 18:30 05/12/25 06:09 100 MLS/HR Vancomycin HCl 0 ml @ 0 mls/hr PER PHARMACY IV 05/11/25 18:30 Metoprolol Tartrate 25 mg BID PO 05/11/25 22:00 12/13/25 09:13 25 MG Vancomycin HCl 250 ml @ 125 mls/hr Q2H IV 05/11/25 21:15 05/12/25 01:14 Cancel Ceftriaxone Sodium 50 ml @ 100 mls/hr DAILY@09 IV 05/12/25 09:00 05/12/25 09:08 100 MLS/HR objective Right PNT in situ. Dark urine laboratory and microbiology Laboratory Tests 05/12/25 02:22 Test 05/12/25 02:22 Range/Units Serum Glucose 119 H 74-106 mg/dL Problem List Right PNT in situ Right hydronephrosis Right nephrolithiasis Bacteremia, GNR Assessment/Plan IV abx Maintain nephrostomy with periodic flushing as needed Outpatient laser lithotripsy TBA as outpatient. No current inpatient procedure planned as he is being treated for bacteremia. Plan discussed with: Patient, Spouse, Other WILLIAM CHE MD May 12, 2025 14:56
--- NOTE | 2025-05-12 16:52 | DVHPN2 ---
Progress Note - Dictate Date Seen: May 12, 2025 Has the PT tested + for MRSA If YES, has PT been informed?: No Medical Necessity Reason Pt with a Central, PICC or Fol: Yes Subjective Patient awake and alert this afternoon, patient's friends are at bedside. Patient reports mild right-sided flank pain. Right nephrostomy tube draining minimal volume of liquid. vital signs Vital Sign Date Time Temp Pulse Resp B/P (MAP) Pulse Ox O2 Delivery O2 Flow Rate FiO2 05/12/25 14:00 75 24 99/58 (72) 96 05/12/25 12:00 Room Air* 0 21 05/12/25 08:00 97.9 97.9 Total Intake and Output 05/11/25 05/11/25 05/12/25 15:00 23:00 07:00 Intake Total 100 ml 800 ml 885 ml Output Total 0 ml Balance 100 ml 800 ml 885 ml medications Current Medications Medications Dose Ordered Sig/Abi Route Start Time Stop Time Status Last Admin Dose Admin Sodium Chloride 10 ml Q8HR IV 05/10/25 22:00 05/12/25 13:47 10 ML Docusate Sodium 100 mg BIDPRN PRN PO 05/10/25 17:15 Acetaminophen 650 mg Q6HP PRN PO 05/10/25 17:15 05/12/25 00:18 650 MG Acetaminophen/ Hydrocodone Bitart 1 tab Q4HP PRN PO 05/10/25 17:15 05/11/25 20:45 1 TAB Hydromorphone HCl 0.5 mg Q4HP PRN IV 05/10/25 17:15 Ondansetron HCl 4 mg Q4HP PRN IV 05/10/25 17:15 Tamsulosin HCl 0.4 mg QPM PO 05/10/25 18:00 05/10/25 21:47 0.4 MG Hydralazine HCl 10 mg Q6HP PRN IV 05/10/25 17:30 Pantoprazole Sodium 40 mg DAILY IV 05/12/25 10:00 05/12/25 09:09 40 MG Sodium Chloride 1,000 ml @ 100 mls/hr Q10H IV 05/11/25 18:30 05/12/25 06:09 100 MLS/HR Vancomycin HCl 0 ml @ 0 mls/hr PER PHARMACY IV 05/11/25 18:30 Metoprolol Tartrate 25 mg BID PO 05/11/25 22:00 05/12/25 09:13 25 MG Vancomycin HCl 250 ml @ 125 mls/hr Q2H IV 05/11/25 21:15 05/12/25 01:14 Cancel Ceftriaxone Sodium 50 ml @ 100 mls/hr DAILY@09 IV 05/12/25 09:00 05/12/25 09:08 100 MLS/HR objective Gen: nad heent: nc/at, mmm lungs: cta anteriorly cvs: no rub abd: soft, bowel sounds audible ext: no edema skin: no rash neuro: alert and oriented laboratory and microbiology Laboratory Tests 05/12/25 02:22 Test 05/12/25 02:22 Range/Units Serum Glucose 119 H 74-106 mg/dL Assessment/Plan IMP: 1) Hemodynamically mediated acute kidney injury/ ATN 2) CKD stage II 3) nephrolithiasis 4) hypertension REC: - fluid challenge - dose vancomycin to desired level - daily basic chemistry panel - discussed plan of care from Nephrology perspective with patient Plan discussed with: Patient JAMES MARES MD May 12, 2025 16:52
[2025-05-12] MEDS: SODIUM CHLORIDE 0.9% 1,000 ML IV ONE (17:14)
--- NOTE | 2025-05-12 22:47 | DVHPN2 ---
Progress Note - Dictate Date Seen: May 12, 2025 Medical Necessity Reason Pt with a Central, PICC or Fol: No Subjective Patient was seen and evaluated in follow up in the ICU. Right nephrostomy tube was placed overnight. WBC 17.7, HGB 9.2, HCT 27.1, BUN 27, [place] 2.53, AST 56, ALT 48. vital signs Vital Sign Date Time Temp Pulse Resp B/P (MAP) Pulse Ox O2 Delivery O2 Flow Rate FiO2 05/12/25 12:00 68 05/12/25 12:00 15 96/64 (75) 97 05/12/25 08:00 Nasal Cannula* 1 24 05/12/25 08:00 97.9 97.9 Total Intake and Output 05/11/25 05/11/25 05/12/25 15:00 23:00 07:00 Intake Total 100 ml 800 ml 885 ml Output Total 0 ml Balance 100 ml 800 ml 885 ml medications Current Medications Medications Dose Ordered Sig/Abi Route Start Time Stop Time Status Last Admin Dose Admin Sodium Chloride 10 ml Q8HR IV 05/10/25 22:00 05/12/25 13:47 10 ML Docusate Sodium 100 mg BIDPRN PRN PO 05/10/25 17:15 Acetaminophen 650 mg Q6HP PRN PO 05/10/25 17:15 05/12/25 00:18 650 MG Acetaminophen/ Hydrocodone Bitart 1 tab Q4HP PRN PO 05/10/25 17:15 05/11/25 20:45 1 TAB Hydromorphone HCl 0.5 mg Q4HP PRN IV 05/10/25 17:15 Ondansetron HCl 4 mg Q4HP PRN IV 05/10/25 17:15 Tamsulosin HCl 0.4 mg QPM PO 05/10/25 18:00 05/10/25 21:47 0.4 MG Hydralazine HCl 10 mg Q6HP PRN IV 05/10/25 17:30 Pantoprazole Sodium 40 mg DAILY IV 05/12/25 10:00 05/12/25 09:09 40 MG Sodium Chloride 1,000 ml @ 100 mls/hr Q10H IV 05/11/25 18:30 05/12/25 06:09 100 MLS/HR Vancomycin HCl 0 ml @ 0 mls/hr PER PHARMACY IV 05/11/25 18:30 Metoprolol Tartrate 25 mg BID PO 05/11/25 22:00 05/12/25 09:13 25 MG Vancomycin HCl 250 ml @ 125 mls/hr Q2H IV 05/11/25 21:15 05/12/25 01:14 Cancel Ceftriaxone Sodium 50 ml @ 100 mls/hr DAILY@09 IV 05/12/25 09:00 05/12/25 09:08 100 MLS/HR objective GENERAL: Alert and oriented x 3. No acute distress. EYES: PERRL, EOMI. Anicteric. HENT: Moist mucous membranes. LUNGS: Clear to auscultation bilaterally. CARDIOVASCULAR: Regular rate and rhythm. ABDOMEN: RLQ TTP. EXTREMITIES: No edema. NEUROLOGIC: No focal neurological deficits. SKIN: Warm, dry. laboratory and microbiology Laboratory Tests 05/12/25 02:22 Test 05/12/25 02:22 Range/Units Serum Glucose 119 H 74-106 mg/dL Problem List Acute pyelonephritis. Hydronephrosis with obstructing calculus. Anemia. Sepsis due to urinary tract infection. SVT. HTN. Assessment/Plan Continued all current supportive medical care. Echocardiogram. Dilaudid and [place] for pain management. IV antibiotics as ordered. IV Hydralazine for SBP >160. Metoprolol. GI prophylactics. Additional plan as per the hospital course. Critical care time of 45 minutes provided to include time spent evaluation of patient at bedside, when appropriate patient/family education for diagnosis, treatment plan, review of pertinent medical information and discussion of care with specialty providers and PCP. Plan discussed with: Patient BARBARA MAGANA MD May 12, 2025 13:55
[2025-05-13] VITALS (21 sets, daily range): BP systolic 104–141; BP diastolic 58–84; PULSE 76–102; RESP 12–31; TEMP 98.1–99; O2SAT 87–97
--- NOTE | 2025-05-13 01:01 | DVHSR ---
APPROVED REPORT EXAM: Two-dimensional and M-mode echocardiogram with Doppler and color Doppler. Blood Pressure: 110/66 mmHg INDICATION Tachycardia RISK FACTORS Height: 5' 9", Weight: 242 DIMENSIONS LVDd 4.6 (3.8-5.7cm) LA (2D) 4.0 (1.9-4.0cm) Aortic Root 3.6 (2.0-3.7cm) LVDs 3.4 (2.5-4.0cm) LA (MM) (1.9-4.0cm) Aortic Cusp Exc 2.1 (1.5-2.0cm) EF (%) 52.0 (55-70%) Rt. Atrium 3.8 (1.9-4.0cm) Asc. Aorta cm IVSd 1.1 (0.7-1.1cm) RV (D) (1.8-2.4cm) PWd 1.1 (0.7-1.1cm) Mitral Valve Mitral Mitral Stenosis E wave 1.00m/s MV Mean GR. mmHg A wave 0.90m/s MV Peak GR. mmHg E/A ratio 1.1 2D MVA cm2 Aortic Valve Aortic Valve Aortic Stenosis V1 1.20m/s AO Mean GR. 3mmHg V2 1.20m/s AO Peak GR. 6mmHg LVOT Diameter 2.6 (1.8-2.4cm) Doppler RANDALL 5.31cm2 Pulmonic Valve V2 0.70m/s Tricuspid Valve TR Velocity 2.10m/s RVSP 25mmHg Conclusion LV EF IS 65% AND IS NORMAL NORMAL RV FUNCTION NORMAL VALVES NO EFFUSION
[2025-05-13 04:02] LABS: Hematocrit 28.4 % (41.0-53.0); Hemoglobin 9.5 g/dL (13.5-17.5); Mean Corpuscular Hemoglobin 30.3 pg (28.0-32.0); Mean Corpuscular Volume 91.0 fL (80.0-100.0); Nucleated Red Blood Cells % 0.1 %
[2025-05-13 04:07] LABS: Anion Gap 12 (5-15); BUN/Creatinine Ratio 12.3 (10.0-20.0); Chloride 106 mmol/L (98-107); Glucose 100 mg/dL (74-106); Potassium 4.2 mmol/L (3.5-5.1); Sodium 136 mmol/L (136-145)
[2025-05-13 04:08] LABS: Alanine Aminotransferase 41 U/L (7-40); Albumin 2.8 g/dL (3.2-4.8); Alkaline Phosphatase 144 U/L (46-116); Bilirubin, Total 1.0 mg/dL (0.2-1.0); Blood Urea Nitrogen 57 mg/dL (9-23); Calcium 7.1 mg/dL (8.7-10.4); Carbon Dioxide 18 mmol/L (20-31); Total Protein 5.4 g/dL (5.7-8.2)
[2025-05-13] MEDS: HYDROmorphone HCL 2 MG/ML VL/or syr IV PRN (08:00)
--- NOTE | 2025-05-13 10:22 | DVHPN2 ---
Reviewed: Care Plan Changes from previous H/P or p: No Changes Objective Vitals Vital Signs Date Time Temp Pulse Resp B/P (MAP) Pulse Ox O2 Delivery O2 Flow Rate FiO2 05/13/25 09:29 85 137/50 05/13/25 08:00 22 05/13/25 07:00 93 05/13/25 04:00 99.0 99.0 05/13/25 04:00 Room Air* 0 21 Intake/Output Intake and Output 05/13/25 07:00 Intake Total 4250 ml Output Total 500 ml Balance 3750 ml Intake Oral 1250 ml IV Total 3000 ml Output Drainage Total 500 ml # Voids 5 # Bowel Movements 1 Medications Current Medications Medications Dose Ordered Sig/Abi Route Start Time Stop Time Status Last Admin Dose Admin Sodium Chloride 10 ml Q8HR IV 05/10/25 22:00 05/13/25 05:45 10 ML Docusate Sodium 100 mg BIDPRN PRN PO 05/10/25 17:15 Acetaminophen 650 mg Q6HP PRN PO 05/10/25 17:15 05/12/25 00:18 650 MG Acetaminophen/ Hydrocodone Bitart 1 tab Q4HP PRN PO 05/10/25 17:15 05/12/25 23:30 1 TAB Hydromorphone HCl 0.5 mg Q4HP PRN IV 05/10/25 17:15 05/13/25 08:00 0.5 MG Ondansetron HCl 4 mg Q4HP PRN IV 05/10/25 17:15 Tamsulosin HCl 0.4 mg QPM PO 05/10/25 18:00 05/12/25 17:14 0.4 MG Hydralazine HCl 10 mg Q6HP PRN IV 05/10/25 17:30 Pantoprazole Sodium 40 mg DAILY IV 05/12/25 10:00 05/13/25 09:28 40 MG Sodium Chloride 1,000 ml @ 100 mls/hr Q10H IV 05/11/25 18:30 05/12/25 21:13 100 MLS/HR Vancomycin HCl 0 ml @ 0 mls/hr PER PHARMACY IV 05/11/25 18:30 Metoprolol Tartrate 25 mg BID PO 05/11/25 22:00 05/13/25 09:29 25 MG Vancomycin HCl 250 ml @ 125 mls/hr Q2H IV 05/11/25 21:15 05/12/25 01:14 Cancel Ceftriaxone Sodium 50 ml @ 100 mls/hr DAILY@09 IV 05/12/25 09:00 05/13/25 07:58 100 MLS/HR Laboratory Results Laboratory Tests 05/13/25 03:25 Chemistry Test 05/13/25 03:25 Albumin 2.8 g/dL (3.2-4.8) L Calcium Level 7.1 mg/dL (8.7-10.4) L Total Protein 5.4 g/dL (5.7-8.2) L LFT Test 05/13/25 03:25 Alanine Aminotransferase (ALT) 41 U/L (7-40) H Alkaline Phosphatase 144 U/L (46-116) H Aspartate Amino Transferase (AST) 39 U/L (13-40) Total Bilirubin 1.0 mg/dL (0.2-1.0) Urinalysis Test 05/10/25 13:56 Urine Color Yellow (Yellow) Urine Clarity Hazy (Clear) H Urine pH 5.5 (5.0-9.0) Urine Specific [place] 1.025 (1.001-1.035) Urine Protein 1+ (Negative) H Urine Ketones 1+ (Negative) H Urine Blood Trace /uL (Negative) H Urine Nitrite Negative (Negative) Urine Bilirubin Negative (Negative) Urine Urobilinogen Normal mg/dL (Negative) Urine Leukocyte Esterase 2+ /uL (Negative) Urine RBC 3 /hpf (0 - 3) Urine Microscopic WBC 53 /HPF (0-3) H Urine Squamous Epithelial Cells Few /hpf (<5) Urine Bacteria Few /hpf (None Seen) H Urine Yeast (Budding) Occasional /hpf (None Urine Creatinine 169.33 mg/dL (30.0-125.0) H Urine Sodium 15 mmol/L (40-220) L Urine Glucose Normal mg/dL (Normal) Microbiology Microbiology Date/Time Source Procedure Growth Status 05/11/25 12:50 Blood Blood Culture - Preliminary NO GROWTH AFTER 24 HOURS OF INCUBATION. Resulted 05/10/25 13:56 Voided Urine Urine Culture - Preliminary Resulted Labs and/or images reviewed: Labs reviewed by me, Image(s) reviewed by me Assessment/Plan Assessment/Plan Acute right flank pain Sepsis secondary to urinary tract infection blood cultures negative urine cultures negative, continue Rocephin Acute pyelonephritis: Bacteremia with Klebsiella pneumoniae from blood cultures prior to admission: Continue Rocephin 1 g IV daily 8 mm proximal/mid right ureteral calculus resulting in moderate right hydroureteronephrosis: Dr Coates planning for ESWL once stable Moderate right hydronephrosis: Consult for Urology Dr. Coates Acute pancreatitis lipase 106, NPO, IV fluids, consult for GI Dr. Patricia Benítez Acute metabolic encephalopathy Anemia of chronic disease SVT: Cardiology consult by Dr. Barahona appreciated Hypertension Blood alcohol level negative Time spent 55 minutes Patient was transferred to [facility] for tachycardia after nephrostomy tube placement Patient seen in [facility] Plan discussed with: Patient My Orders Orders - KANG LEBLANC MD Procedure Category Date Status Time Regular Diet DIET 05/12/25 Transmitted Lunch Transfer Orders XFER 05/12/25 Transmitted 10:37 Date of Service: May 13, 2025 Billing Provider: KANG LEBLANC MD Common Visit Codes: [id number] INP/OBS CARE(HIGH) KANG LEBLANC MD May 13, 2025 10:22
--- NOTE | 2025-05-13 11:32 | DVHPN2 ---
Progress Note - Dictate Date Seen: May 13, 2025 Has the PT tested + for MRSA If YES, has PT been informed?: No Medical Necessity Reason Pt with a Central, PICC or Fol: No Subjective Patient awake and alert, patient's family at bedside. Patient reports significant increase in urine output from right-sided nephrostomy. vital signs Vital Sign Date Time Temp Pulse Resp B/P (MAP) Pulse Ox O2 Delivery O2 Flow Rate FiO2 05/13/25 10:01 87 18 136/73 (94) 94 05/13/25 08:00 Room Air* 0 21 05/13/25 08:00 98.8 98.8 Total Intake and Output 05/12/25 05/12/25 05/13/25 15:00 23:00 07:00 Intake Total 900 ml 2050 ml 1300 ml Output Total 30 ml 470 ml Balance 900 ml 2020 ml 830 ml medications Current Medications Medications Dose Ordered Sig/Abi Route Start Time Stop Time Status Last Admin Dose Admin Sodium Chloride 10 ml Q8HR IV 05/10/25 22:00 05/13/25 05:45 10 ML Docusate Sodium 100 mg BIDPRN PRN PO 05/10/25 17:15 Acetaminophen 650 mg Q6HP PRN PO 05/10/25 17:15 05/12/25 00:18 650 MG Acetaminophen/ Hydrocodone Bitart 1 tab Q4HP PRN PO 05/10/25 17:15 05/12/25 23:30 1 TAB Hydromorphone HCl 0.5 mg Q4HP PRN IV 05/10/25 17:15 05/13/25 08:00 0.5 MG Ondansetron HCl 4 mg Q4HP PRN IV 05/10/25 17:15 Tamsulosin HCl 0.4 mg QPM PO 05/10/25 18:00 05/12/25 17:14 0.4 MG Hydralazine HCl 10 mg Q6HP PRN IV 05/10/25 17:30 Pantoprazole Sodium 40 mg DAILY IV 05/12/25 10:00 05/13/25 09:28 40 MG Sodium Chloride 1,000 ml @ 100 mls/hr Q10H IV 05/11/25 18:30 05/13/25 07:00 100 MLS/HR Vancomycin HCl 0 ml @ 0 mls/hr PER PHARMACY IV 05/11/25 18:30 Metoprolol Tartrate 25 mg BID PO 05/11/25 22:00 05/13/25 09:29 25 MG Vancomycin HCl 250 ml @ 125 mls/hr Q2H IV 05/11/25 21:15 05/12/25 01:14 Cancel Ceftriaxone Sodium 50 ml @ 100 mls/hr DAILY@09 IV 05/12/25 09:00 05/13/25 07:58 100 MLS/HR objective Gen: nad heent: nc/at, mmm lungs: cta anteriorly cvs: no rub abd: soft, bowel sounds audible ext: no edema skin: no rash neuro: alert and oriented laboratory and microbiology Laboratory Tests 05/13/25 03:25 Test 05/13/25 03:25 Range/Units Serum Glucose 100 74-106 mg/dL Assessment/Plan IMP: 1) Hemodynamically mediated acute kidney injury/ ATN 2) CKD stage II 3) nephrolithiasis 4) hypertension REC: - unclear etiology for continued rise in serum creatinine, we will obtain a stat CT scan Of abdomen and pelvis without contrast - will continue with IV fluids at maintenance. Plan discussed with: Other JAMES MARES MD May 13, 2025 11:32
--- NOTE | 2025-05-13 12:49 | DVH ---
EXAM: CT CT AB PEL WO CON-NO ORAL OR IV History: worsening kidney function, Comparison Study: CT CT AB PEL WO CON-NO ORAL OR IV on DOS: 05/11/25, CT CT AB PEL WO CON-NO ORAL OR IV on DOS: 04/24/25, CT CT AB PEL WO CON-NO ORAL OR IV on DOS: 12/11/24, CT ABD PELVIS WO CONTRAST on DOS: 08/13/21 TECHNIQUE: Multidetector spiral CT of the abdomen was performed from lung bases to pubic symphysis. Imaging was performed without IV contrast. Axial, coronal and sagittal multiplanar reformats were obtained from the axial data set by the technologist. Radiation Dose : 1. Abdomen/Pelvis: CTDIvol 20.97 mGy, DLP 1375.13 mGy*cm. FINDINGS: Evaluation of solid organs is limited due to lack of intravenous contrast use. Lung Bases: Bibasilar consolidations may reflect mild pneumonia. Trace bilateral pleural effusions Liver: The liver is normal in size. No focal lesions. Gallbladder and Biliary Tree: Unremarkable Spleen: Unremarkable Pancreas: The pancreas is grossly normal in appearance. Adrenal Glands: Unremarkable Kidneys: Right nephrostomy tube appears to be well-positioned. Moderate right- sided hydronephrosis secondary to obstructing stone in the proximal ureter which measures up to 9 mm. Bladder: Grossly unremarkable for degree of distention. Bowel: The stomach is grossly normal in appearance. Small bowel and colon are normal in caliber and distribution. The appendix is not visualized; however, no secondary findings of acute appendicitis identified. Ascites: Absent Lymphadenopathy: No mesenteric, retroperitoneal or periportal lymphadenopathy. Abdominal Wall and Mesentery: Unremarkable. Vasculature: The visualized abdominal aorta is normal in size and caliber. Evaluation of abdominal and pelvic vessels is limited due to lack of intravenous contrast. Pelvic Organs: Unremarkable Musculoskeletal: No aggressive focal bony lesions, acute fractures or dislocation. IMPRESSION: 1. Right nephrostomy tube appears to be well-positioned. 2. Moderate right-sided hydronephrosis secondary to obstructing stone in the proximal ureter which measures up to 1.1 cm. 3. Bibasilar consolidations may reflect mild pneumonia. 4. Trace bilateral pleural effusions. Radiation optimization: All CT scans at this facility use at least one of these dose optimization techniques: automated exposure control mA and/or kV adjustment per patient size (includes targeted exams where dose is matched to clinical indication) or iterative reconstruction.
--- NOTE | 2025-05-13 15:40 | MEDREC ---
[facility] ASP Intervention Section I [facility] Intervention: Deescalate AB based on CS (PRELIMINARY BLOOD CULTURE WITH NO GROWTH - FINAL URINE CULTURE WITH NO GROWTH - PATIENT BISHOP - PLEASE CONSIDER D/C VANCOMYCIN) STEPHEN THOMPSON PHARMACIST May 13, 2025 15:40
--- NOTE | 2025-05-13 19:10 | DVHPN2 ---
Progress Note - Dictate Date Seen: May 13, 2025 Has the PT tested + for MRSA If YES, has PT been informed?: No Medical Necessity Reason Pt with a Central, PICC or Fol: No Subjective Patient developed SVT after placement of the nephrostomy tube Patient was transferred [place] [facility] [place]. He is currently stable Cardiac arrhythmia has reversed Patient awake and alert, patient's family at bedside. Patient reports significant increase in urine output from right-sided nephrostomy. No nausea vomiting or abdominal pain vital signs Vital Sign Date Time Temp Pulse Resp B/P (MAP) Pulse Ox O2 Delivery O2 Flow Rate FiO2 05/13/25 17:15 98.8 88 19 128/82 (97) 96 98.8 05/13/25 17:08 Room Air* 0 21 Total Intake and Output 05/12/25 05/12/25 05/13/25 15:00 23:00 07:00 Intake Total 900 ml 2050 ml 2300 ml Output Total 30 ml 1570 ml Balance 900 ml 2020 ml 730 ml medications Current Medications Medications Dose Ordered Sig/Abi Route Start Time Stop Time Status Last Admin Dose Admin Sodium Chloride 10 ml Q8HR IV 05/10/25 22:00 05/13/25 14:00 10 ML Docusate Sodium 100 mg BIDPRN PRN PO 05/10/25 17:15 Acetaminophen 650 mg Q6HP PRN PO 05/10/25 17:15 05/12/25 00:18 650 MG Acetaminophen/ Hydrocodone Bitart 1 tab Q4HP PRN PO 05/10/25 17:15 05/12/25 23:30 1 TAB Hydromorphone HCl 0.5 mg Q4HP PRN IV 05/10/25 17:15 05/13/25 11:58 0.5 MG Ondansetron HCl 4 mg Q4HP PRN IV 05/10/25 17:15 Tamsulosin HCl 0.4 mg QPM PO 05/10/25 18:00 05/13/25 18:18 0.4 MG Hydralazine HCl 10 mg Q6HP PRN IV 05/10/25 17:30 Pantoprazole Sodium 40 mg DAILY IV 05/12/25 10:00 05/13/25 09:28 40 MG Sodium Chloride 1,000 ml @ 100 mls/hr Q10H IV 05/11/25 18:30 05/13/25 18:25 100 MLS/HR Vancomycin HCl 0 ml @ 0 mls/hr PER PHARMACY IV 05/11/25 18:30 Metoprolol Tartrate 25 mg BID PO 05/11/25 22:00 05/13/25 09:29 25 MG Vancomycin HCl 250 ml @ 125 mls/hr Q2H IV 05/11/25 21:15 05/12/25 01:14 Cancel Ceftriaxone Sodium 50 ml @ 100 mls/hr DAILY@09 IV 05/12/25 09:00 05/13/25 07:58 100 MLS/HR objective General: Obese, low-grade fevers, palor, mucosae are moist Cardiovascular: Regular S1 and S2. No murmurs, gallops or rubs. No JVD elevation. No pedal edema Respiratory: Normal B/L air entry on room air. Clear lung sounds on auscultation Abdomen: Soft, nontender, nondistended, normoactive bowel sounds, no rebound tenderness, no organomegaly, no masses MSK/skin: Mobilizes 4 limbs. Skin is dry and warm laboratory and microbiology Laboratory Tests 05/13/25 03:25 Test 05/13/25 03:25 Range/Units Serum Glucose 100 74-106 mg/dL Abd USG negative CT SCAN ABD PELVIS IMPRESSION: 1. Right nephrostomy tube appears to be well-positioned. 2. Moderate right-sided hydronephrosis secondary to obstructing stone in the proximal ureter which measures up to 1.1 cm. 3. Bibasilar consolidations may reflect mild pneumonia. 4. Trace bilateral pleural effusions. Problems(with codes): (1) Pancreatitis (2) Hydronephrosis with obstructing calculus (3) Sepsis due to urinary tract infection (4) Hypertensive urgency (5) Right flank pain (6) Hydroureteronephrosis (7) Hydronephrosis with renal and ureteral calculous obstruction (8) Elevated liver enzymes Prognosis Assessment plan Liver enzymes are trending down, there was no evidence of gallstones I believe pancreatitis and elevated liver enzymes related to sepsis Continue supportive care monitor labs hepatitis panel pending Check lipase level in the morning Patient is on a regular diet at this time Continue IV antibiotics Plan discussed with: Patient ROX SEGOVIA MD May 13, 2025 19:10
--- NOTE | 2025-05-13 19:22 | DVHPN2 ---
Progress Note - Dictate Date Seen: May 13, 2025 Has the PT tested + for MRSA If YES, has PT been informed?: No Medical Necessity Reason Pt with a Central, PICC or Fol: No Subjective Patient was seen and evaluated in follow up in the ICU. Family at bedside. Patient reports significant increase in urine output from right-sided nephrostomy. WBC 15.3, HGB 9.5, HCT 28.4, CO2 18, BUN 57, [employer] 4.65, CA 7.1, ALT 41. CT ABD PEL shows right nephrostomy tube appears to be well-positioned. Moderate right-sided hydronephrosis secondary to obstructing stone in the proximal ureter which measures up to 1.1 cm. Bibasilar consolidations may reflect mild pneumonia. Trace bilateral pleural effusions. vital signs Vital Sign Date Time Temp Pulse Resp B/P (MAP) Pulse Ox O2 Delivery O2 Flow Rate FiO2 05/13/25 12:00 98.1 83 132/80 (97) 96 98.1 05/13/25 11:58 20 05/13/25 08:00 Room Air* 0 21 Total Intake and Output 05/12/25 05/12/25 05/13/25 15:00 23:00 07:00 Intake Total 900 ml 2050 ml 1300 ml Output Total 30 ml 470 ml Balance 900 ml 2020 ml 830 ml medications Current Medications Medications Dose Ordered Sig/Abi Route Start Time Stop Time Status Last Admin Dose Admin Sodium Chloride 10 ml Q8HR IV 05/10/25 22:00 05/13/25 05:45 10 ML Docusate Sodium 100 mg BIDPRN PRN PO 05/10/25 17:15 Acetaminophen 650 mg Q6HP PRN PO 05/10/25 17:15 05/12/25 00:18 650 MG Acetaminophen/ Hydrocodone Bitart 1 tab Q4HP PRN PO 05/10/25 17:15 05/12/25 23:30 1 TAB Hydromorphone HCl 0.5 mg Q4HP PRN IV 05/10/25 17:15 05/13/25 11:58 0.5 MG Ondansetron HCl 4 mg Q4HP PRN IV 05/10/25 17:15 Tamsulosin HCl 0.4 mg QPM PO 05/10/25 18:00 05/12/25 17:14 0.4 MG Hydralazine HCl 10 mg Q6HP PRN IV 05/10/25 17:30 Pantoprazole Sodium 40 mg DAILY IV 05/12/25 10:00 05/13/25 09:28 40 MG Sodium Chloride 1,000 ml @ 100 mls/hr Q10H IV 05/11/25 18:30 05/13/25 07:00 100 MLS/HR Vancomycin HCl 0 ml @ 0 mls/hr PER PHARMACY IV 05/11/25 18:30 Metoprolol Tartrate 25 mg BID PO 05/11/25 22:00 05/13/25 09:29 25 MG Vancomycin HCl 250 ml @ 125 mls/hr Q2H IV 05/11/25 21:15 05/12/25 01:14 Cancel Ceftriaxone Sodium 50 ml @ 100 mls/hr DAILY@09 IV 05/12/25 09:00 05/13/25 07:58 100 MLS/HR objective GENERAL: Alert and oriented x 3. No acute distress. EYES: PERRL, EOMI. Anicteric. HENT: Moist mucous membranes. LUNGS: Clear to auscultation bilaterally. CARDIOVASCULAR: Regular rate and rhythm. ABDOMEN: RLQ TTP. EXTREMITIES: No edema. NEUROLOGIC: No focal neurological deficits. SKIN: Warm, dry. laboratory and microbiology Laboratory Tests 05/13/25 03:25 Test 05/13/25 03:25 Range/Units Serum Glucose 100 74-106 mg/dL Problem List Acute pyelonephritis. Hydronephrosis with obstructing calculus. Anemia. Sepsis due to urinary tract infection. SVT. HTN. Assessment/Plan Continued all current supportive medical care. Echocardiogram. Dilaudid and [place] for pain management. IV antibiotics as ordered. IV Hydralazine for SBP >160. Metoprolol. GI prophylactics. Additional plan as per the hospital course. Critical care time of 45 minutes provided to include time spent evaluation of patient at bedside, when appropriate patient/family education for diagnosis, treatment plan, review of pertinent medical information and discussion of care with specialty providers and PCP. Plan discussed with: Patient BARBARA MAGANA MD May 13, 2025 13:47
--- NOTE | 2025-05-13 20:16 | DVHPN2 ---
Progress Note - Dictate Date Seen: May 13, 2025 Has the PT tested + for MRSA If YES, has PT been informed?: No Medical Necessity Reason Pt with a Central, PICC or Fol: Yes Reason for mcwilliams catheter: Strict I&O Medical Necessity Reason Patient has right PNT draining well. Clear yellow urine Creatinine elevated 4.65 9 mm right proximal ureteral stone, obstructing Subjective Doing well vital signs Vital Sign Date Time Temp Pulse Resp B/P (MAP) Pulse Ox O2 Delivery O2 Flow Rate FiO2 05/13/25 17:15 98.8 88 19 128/82 (97) 96 98.8 05/13/25 17:08 Room Air* 0 21 Total Intake and Output 05/12/25 05/12/25 05/13/25 15:00 23:00 07:00 Intake Total 900 ml 2050 ml 2300 ml Output Total 30 ml 1570 ml Balance 900 ml 2020 ml 730 ml medications Current Medications Medications Dose Ordered Sig/Abi Route Start Time Stop Time Status Last Admin Dose Admin Sodium Chloride 10 ml Q8HR IV 05/10/25 22:00 05/13/25 14:00 10 ML Docusate Sodium 100 mg BIDPRN PRN PO 05/10/25 17:15 Acetaminophen 650 mg Q6HP PRN PO 05/10/25 17:15 05/12/25 00:18 650 MG Acetaminophen/ Hydrocodone Bitart 1 tab Q4HP PRN PO 05/10/25 17:15 05/12/25 23:30 1 TAB Hydromorphone HCl 0.5 mg Q4HP PRN IV 05/10/25 17:15 05/13/25 11:58 0.5 MG Ondansetron HCl 4 mg Q4HP PRN IV 05/10/25 17:15 Tamsulosin HCl 0.4 mg QPM PO 05/10/25 18:00 05/13/25 18:18 0.4 MG Hydralazine HCl 10 mg Q6HP PRN IV 05/10/25 17:30 Pantoprazole Sodium 40 mg DAILY IV 05/12/25 10:00 05/13/25 09:28 40 MG Sodium Chloride 1,000 ml @ 100 mls/hr Q10H IV 05/11/25 18:30 05/13/25 18:25 100 MLS/HR Vancomycin HCl 0 ml @ 0 mls/hr PER PHARMACY IV 05/11/25 18:30 Metoprolol Tartrate 25 mg BID PO 05/11/25 22:00 05/13/25 09:29 25 MG Vancomycin HCl 250 ml @ 125 mls/hr Q2H IV 05/11/25 21:15 05/12/25 01:14 Cancel Ceftriaxone Sodium 50 ml @ 100 mls/hr DAILY@09 IV 05/12/25 09:00 05/13/25 07:58 100 MLS/HR objective Right PNT in situ. Clear laboratory and microbiology Laboratory Tests 05/13/25 03:25 Test 05/13/25 03:25 Range/Units Serum Glucose 100 74-106 mg/dL Blood culture 05/10/25 Klebsiella sensitive to Rocephin Problem List Right PNT in situ Bacteremia, GNR- Klebsiella Azotemia Assessment/Plan IV abx Maintain nephrostomy with periodic flushing as needed Outpatient laser lithotripsy TBA as outpatient. No current inpatient procedure planned as he is being treated for bacteremia. Monitor Creatinine Plan discussed with: Patient, Other WILLIAM CHE MD May 13, 2025 20:16
[2025-05-14] VITALS (8 sets, daily range): BP systolic 127–138; BP diastolic 73–88; PULSE 65–95; RESP 15–20; TEMP 97.8–98.3; O2SAT 94–98
[2025-05-14 02:16] LABS: Urine Protein, UAD TRACE (Negative)
[2025-05-14 02:17] LABS: Benzodiazephine Screen, Urine Pos (NEGATIVE); Opiate Scree,Urine Neg (NEGATIVE)
[2025-05-14 02:18] LABS: Amphetamine Screen, Urine Neg (NEGATIVE); Barbiturate Scree,Urine Neg (NEGATIVE); Cannabinoid Screen, Urine Neg (NEGATIVE); Cocaine Screen, Urine Neg (NEGATIVE); Phencyclidine Screen, Urine Neg (NEGATIVE)
[2025-05-14 06:28] LABS: Hematocrit 26.8 % (41.0-53.0); Hemoglobin 9.1 g/dL (13.5-17.5); Mean Corpuscular Hemoglobin 30.2 pg (28.0-32.0); Mean Corpuscular Volume 89.0 fL (80.0-100.0); Nucleated Red Blood Cells % 0.0 %
[2025-05-14 06:58] LABS: Alanine Aminotransferase 31 U/L (7-40); Anion Gap 15 (5-15); BUN/Creatinine Ratio 10.8 (10.0-20.0); Chloride 106 mmol/L (98-107); Glucose 102 mg/dL (74-106); Potassium 4.4 mmol/L (3.5-5.1); Sodium 138 mmol/L (136-145)
[2025-05-14 07:00] LABS: Bilirubin, Total 0.9 mg/dL (0.2-1.0)
[2025-05-14 07:20] LABS: Albumin 2.7 g/dL (3.2-4.8); Alkaline Phosphatase 121 U/L (46-116); Blood Urea Nitrogen 66 mg/dL (9-23); Calcium 7.6 mg/dL (8.7-10.4); Carbon Dioxide 17 mmol/L (20-31); Total Protein 5.5 g/dL (5.7-8.2)
--- NOTE | 2025-05-14 08:18 | DVHPN2 ---
Reviewed: Care Plan Changes from previous H/P or p: No Changes Objective Vitals Vital Signs Date Time Temp Pulse Resp B/P (MAP) Pulse Ox O2 Delivery O2 Flow Rate FiO2 05/14/25 05:00 98.2 71 20 130/76 (94) 95 98.2 05/13/25 20:00 Room Air* 0 21 Intake/Output Intake and Output 05/14/25 07:00 Intake Total 2425 ml Output Total 2300 ml Balance 125 ml Intake Oral 700 ml IV Total 1725 ml Output Urine Total 1850 ml Drainage Total 450 ml # Voids 4 # Bowel Movements 3 Medications Current Medications Medications Dose Ordered Sig/Abi Route Start Time Stop Time Status Last Admin Dose Admin Sodium Chloride 10 ml Q8HR IV 05/10/25 22:00 05/14/25 05:19 10 ML Docusate Sodium 100 mg BIDPRN PRN PO 05/10/25 17:15 Acetaminophen 650 mg Q6HP PRN PO 05/10/25 17:15 05/12/25 00:18 650 MG Acetaminophen/ Hydrocodone Bitart 1 tab Q4HP PRN PO 05/10/25 17:15 05/12/25 23:30 1 TAB Hydromorphone HCl 0.5 mg Q4HP PRN IV 05/10/25 17:15 05/13/25 11:58 0.5 MG Ondansetron HCl 4 mg Q4HP PRN IV 05/10/25 17:15 Tamsulosin HCl 0.4 mg QPM PO 05/10/25 18:00 05/13/25 18:18 0.4 MG Hydralazine HCl 10 mg Q6HP PRN IV 05/10/25 17:30 Pantoprazole Sodium 40 mg DAILY IV 05/12/25 10:00 05/13/25 09:28 40 MG Sodium Chloride 1,000 ml @ 100 mls/hr Q10H IV 05/11/25 18:30 05/14/25 03:45 100 MLS/HR Vancomycin HCl 0 ml @ 0 mls/hr PER PHARMACY IV 05/11/25 18:30 Metoprolol Tartrate 25 mg BID PO 05/11/25 22:00 05/13/25 22:09 25 MG Vancomycin HCl 250 ml @ 125 mls/hr Q2H IV 05/11/25 21:15 05/12/25 01:14 Cancel Ceftriaxone Sodium 50 ml @ 100 mls/hr DAILY@09 IV 05/12/25 09:00 05/13/25 07:58 100 MLS/HR Laboratory Results Laboratory Tests 05/14/25 05:14 Chemistry Test 05/14/25 05:14 Albumin 2.7 g/dL (3.2-4.8) L Calcium Level 7.6 mg/dL (8.7-10.4) L Total Protein 5.5 g/dL (5.7-8.2) L LFT Test 05/14/25 05:14 Alanine Aminotransferase (ALT) 31 U/L (7-40) Alkaline Phosphatase 121 U/L (46-116) H Aspartate Amino Transferase (AST) 25 U/L (13-40) Total Bilirubin 0.9 mg/dL (0.2-1.0) Urinalysis Test 05/10/25 13:56 05/14/25 01:26 Urine Yeast (Budding) Occasional /hpf (None Urine Creatinine 169.33 mg/dL (30.0-125.0) H Urine Sodium 15 mmol/L (40-220) L Urine Color Light-yellow (Yellow) Urine Clarity Clear (Clear) Urine pH 5.5 (5.0-9.0) Urine Specific [place] 1.008 (1.001-1.035) Urine Protein Trace (Negative) H Urine Ketones Negative (Negative) Urine Blood 1+ /uL (Negative) H Urine Nitrite Negative (Negative) Urine Bilirubin Negative (Negative) Urine Urobilinogen Normal mg/dL (Negative) Urine Leukocyte Esterase 1+ /uL (Negative) Urine RBC 12 /hpf (0 - 3) Urine Microscopic WBC 33 /HPF (0-3) H Urine Squamous Epithelial Cells None seen /hpf (<5) Urine Bacteria None seen /hpf (None Seen) Urine Glucose Normal mg/dL (Normal) Microbiology Microbiology Date/Time Source Procedure Growth Status 05/11/25 12:50 Blood Blood Culture - Preliminary NO GROWTH AFTER 48 HOURS OF INCUBATION. Resulted 05/10/25 13:56 Voided Urine Urine Culture - Final Complete Labs and/or images reviewed: Labs reviewed by me, Image(s) reviewed by me Assessment/Plan Assessment/Plan Acute right flank pain Sepsis secondary to urinary tract infection blood cultures negative urine cultures negative, continue Rocephin Acute pyelonephritis: Bacteremia with Klebsiella pneumoniae from blood cultures prior to admission: Continue Rocephin 1 g IV daily, also sensitive to Levaquin p.o. 8 mm proximal/mid right ureteral calculus resulting in moderate right hydroureteronephrosis: Dr Coates planning for ESWL once stable Moderate right hydronephrosis: Consult for Urology Dr. Coates Acute pancreatitis lipase 106, NPO, IV fluids, consult for GI Dr. Patricia Benítez Acute metabolic encephalopathy Anemia of chronic disease SVT: Cardiology consult by Dr. Barahona appreciated Hypertension Blood alcohol level negative Urology Dr. Coates cleared for discharge and advised outpatient ESWL Patient agrees for discharge on Wednesday with p.o. Levaquin Plan discussed with: Patient My Orders Orders - KANG LEBLANC MD Procedure Category Date Status Time Complete Blood Count LAB 05/16/25 Verified 05:00 Comprehensive LAB 05/16/25 Verified Metabolic Panel 05:00 Urine Bacterial ELBA 05/14/25 In Process Culture 01:26 Date of Service: May 14, 2025 Billing Provider: KANG LEBLANC MD Common Visit Codes: [id number] INP/OBS CARE(HIGH) KANG LEBLANC MD May 14, 2025 08:18
--- NOTE | 2025-05-14 11:13 | DVHPN2 ---
Progress Note Date Seen: May 14, 2025 Has the PT tested + for MRSA If YES, has PT been informed?: No Medical Necessity Reason Pt with a Central, PICC or Fol: Yes The following are medically ne: Mcwilliams Catheter Reason for mcwilliams catheter: Strict I&O Objective vital signs Vital Sign Date Time Temp Pulse Resp B/P (MAP) Pulse Ox O2 Delivery O2 Flow Rate FiO2 05/14/25 08:47 98.0 79 16 131/88 (102) 94 98.0 05/14/25 08:00 Room Air* 0 21 Total Intake and Output 05/13/25 05/13/25 05/14/25 15:00 23:00 07:00 Intake Total 675 ml 100 ml 1650 ml Output Total 450 ml 1850 ml Balance 675 ml -350 ml -200 ml medications Current Medications Medications Dose Ordered Sig/Abi Route Start Time Stop Time Status Last Admin Dose Admin Sodium Chloride 10 ml Q8HR IV 05/10/25 22:00 05/14/25 05:19 10 ML Docusate Sodium 100 mg BIDPRN PRN PO 05/10/25 17:15 Acetaminophen 650 mg Q6HP PRN PO 05/10/25 17:15 05/12/25 00:18 650 MG Acetaminophen/ Hydrocodone Bitart 1 tab Q4HP PRN PO 05/10/25 17:15 05/12/25 23:30 1 TAB Hydromorphone HCl 0.5 mg Q4HP PRN IV 05/10/25 17:15 05/13/25 11:58 0.5 MG Ondansetron HCl 4 mg Q4HP PRN IV 05/10/25 17:15 Tamsulosin HCl 0.4 mg QPM PO 05/10/25 18:00 05/13/25 18:18 0.4 MG Hydralazine HCl 10 mg Q6HP PRN IV 05/10/25 17:30 Pantoprazole Sodium 40 mg DAILY IV 05/12/25 10:00 05/14/25 08:15 40 MG Sodium Chloride 1,000 ml @ 100 mls/hr Q10H IV 05/11/25 18:30 05/14/25 03:45 100 MLS/HR Vancomycin HCl 0 ml @ 0 mls/hr PER PHARMACY IV 05/11/25 18:30 Metoprolol Tartrate 25 mg BID PO 05/11/25 22:00 05/14/25 08:15 25 MG Vancomycin HCl 250 ml @ 125 mls/hr Q2H IV 05/11/25 21:15 05/12/25 01:14 Cancel Ceftriaxone Sodium 50 ml @ 100 mls/hr DAILY@09 IV 05/12/25 09:00 05/14/25 08:14 100 MLS/HR Examination: GENERAL:Normal, CVS:Normal, ABDOMEN:Normal laboratory and microbiology Laboratory Tests 05/14/25 05:14 Test 05/14/25 05:14 Range/Units Serum Glucose 102 74-106 mg/dL Microbiology Date/Time Source Procedure Growth Status 05/11/25 12:50 Blood Blood Culture - Preliminary NO GROWTH AFTER 48 HOURS OF INCUBATION. Resulted 05/10/25 13:56 Voided Urine Urine Culture - Final Complete Problem List/Assessment/Plan Problem List/Assessment/Plan Acute kidney injury due to urinary obstruction ckd II right obstructing kidney stone with moderate hydronephrosis s/p PCNT anemia transaminitis Bcx show NGTD 05/11, rec repeat today continue IVf and monitor output from PCNT record UOP from PCNT add sodium bicarb po encourage appropriate drug levels of ABX to avoid nephrotoxicity CT scan yesterday shows PCNT in place although cr is worsening do not recommend dialysis at this time as uop is improving oral iron Plan discussed with: Patient My Orders My Orders Orders - AMY CHIANG MD Procedure Category Date Status Time Blood Culture ELBA 05/14/25 Logged 11:02 Sodium Bicarb Tab PHA 05/14/25 Logged 14:00 Regular Diet DIET 05/14/25 Transmitted Lunch Furosemide Injection PHA 05/14/25 Logged (Lasix Injection) 11:15 AMY CHIANG MD May 14, 2025 11:13
[2025-05-14] MEDS: FUROSEMIDE 100 MG/10ML VIAL IV ONE (12:20)
[2025-05-14 13:02] LABS: Hepatitis B Surface Antigen Negative (Negative)
[2025-05-14 13:20] LABS: Hepatitis C Antibody Negative (Negative)
[2025-05-14] MEDS: SODIUM BICARBONATE 650 MG TAB PO SCH (14:05)
[2025-05-14] MEDS: FERROUS SULFATE 325mg EC TAB PO SCH (17:44)
--- NOTE | 2025-05-15 00:30 | DVHPN2 ---
Progress Note - Dictate Date Seen: May 14, 2025 Has the PT tested + for MRSA If YES, has PT been informed?: No Medical Necessity Reason Pt with a Central, PICC or Fol: Yes The following are medically ne: Mcwilliams Catheter Reason for mcwilliams catheter: Strict I&O Subjective Patient was seen and evaluated in follow up. Patient downgraded to tlee bed. in the ICU. Patient c/o right flank pain. Dr. Coates advised outpatient ESWL. HGB 9.1, HCT 26.8, BUN 99, [employer] 6.09. Hep B panel is nonreactive. Echocardiogram shows LV EF of 65%. Telemetry reviewed. vital signs Vital Sign Date Time Temp Pulse Resp B/P (MAP) Pulse Ox O2 Delivery O2 Flow Rate FiO2 05/14/25 23:17 71 117/78 05/14/25 21:00 97.8 16 98 97.8 05/14/25 20:00 Room Air* 0 21 Total Intake and Output 05/14/25 05/14/25 05/15/25 15:00 23:00 07:00 Intake Total 50 ml 850 ml Output Total 3945 ml 500 ml Balance 50 ml -3095 ml -500 ml medications Current Medications Medications Dose Ordered Sig/Abi Route Start Time Stop Time Status Last Admin Dose Admin Sodium Chloride 10 ml Q8HR IV 05/10/25 22:00 05/14/25 21:55 10 ML Docusate Sodium 100 mg BIDPRN PRN PO 05/10/25 17:15 Acetaminophen 650 mg Q6HP PRN PO 05/10/25 17:15 05/12/25 00:18 650 MG Acetaminophen/ Hydrocodone Bitart 1 tab Q4HP PRN PO 05/10/25 17:15 05/12/25 23:30 1 TAB Hydromorphone HCl 0.5 mg Q4HP PRN IV 05/10/25 17:15 05/13/25 11:58 0.5 MG Ondansetron HCl 4 mg Q4HP PRN IV 05/10/25 17:15 Tamsulosin HCl 0.4 mg QPM PO 05/10/25 18:00 05/14/25 17:44 0.4 MG Hydralazine HCl 10 mg Q6HP PRN IV 05/10/25 17:30 Pantoprazole Sodium 40 mg DAILY IV 05/12/25 10:00 05/14/25 08:15 40 MG Sodium Chloride 1,000 ml @ 100 mls/hr Q10H IV 05/11/25 18:30 05/14/25 17:46 100 MLS/HR Vancomycin HCl 0 ml @ 0 mls/hr PER PHARMACY IV 05/11/25 18:30 Metoprolol Tartrate 25 mg BID PO 05/11/25 22:00 05/14/25 21:55 25 MG Vancomycin HCl 250 ml @ 125 mls/hr Q2H IV 05/11/25 21:15 05/12/25 01:14 Cancel Ceftriaxone Sodium 50 ml @ 100 mls/hr DAILY@09 IV 05/12/25 09:00 05/14/25 08:14 100 MLS/HR Sodium Bicarbonate 650 mg TID PO 05/14/25 14:00 05/14/25 21:53 650 MG Ferrous Sulfate 325 mg BIDWM PO 05/14/25 18:00 05/14/25 17:44 325 MG objective GENERAL: Alert and oriented x 3. No acute distress. EYES: PERRL, EOMI. Anicteric. HENT: Moist mucous membranes. LUNGS: Clear to auscultation bilaterally. CARDIOVASCULAR: Regular rate and rhythm. ABDOMEN: RLQ TTP. EXTREMITIES: No edema. NEUROLOGIC: No focal neurological deficits. SKIN: Warm, dry. laboratory and microbiology Laboratory Tests 05/14/25 05:14 Test 05/14/25 05:14 Range/Units Serum Glucose 102 74-106 mg/dL Problem List Acute pyelonephritis. Hydronephrosis with obstructing calculus. Anemia. Sepsis due to urinary tract infection. SVT. HTN. Assessment/Plan Continued all current supportive medical care. Dilaudid and [place] for pain management. IV antibiotics as ordered. IV Hydralazine for SBP >160. Metoprolol. GI prophylactics. Additional plan as per the hospital course. Plan discussed with: Patient BARBARA MAGANA MD May 15, 2025 00:30
[2025-05-15 01:00] VITALS: BP 145/79; PULSE 79; RESP 18; TEMP 97.9; O2SAT 96
[2025-05-15 06:32] LABS: Hematocrit 29.3 % (41.0-53.0); Hemoglobin 10.0 g/dL (13.5-17.5); Mean Corpuscular Hemoglobin 30.1 pg (28.0-32.0); Mean Corpuscular Volume 88.7 fL (80.0-100.0); Nucleated Red Blood Cells % 0.0 %
[2025-05-15 06:48] LABS: Alanine Aminotransferase 29 U/L (7-40); Anion Gap 14 (5-15); BUN/Creatinine Ratio 9.8 (10.0-20.0); Carbon Dioxide 21 mmol/L (20-31); Chloride 107 mmol/L (98-107); Potassium 4.3 mmol/L (3.5-5.1); Sodium 142 mmol/L (136-145); Total Protein 6.7 g/dL (5.7-8.2)
[2025-05-15 06:49] LABS: Albumin 3.2 g/dL (3.2-4.8)
[2025-05-15 06:50] LABS: Bilirubin, Total 0.7 mg/dL (0.2-1.0)
[2025-05-15 06:51] LABS: Alkaline Phosphatase 124 U/L (46-116); Blood Urea Nitrogen 59 mg/dL (9-23); Calcium 8.3 mg/dL (8.7-10.4); Glucose 144 mg/dL (74-106)
[2025-05-15 08:00] VITALS: PULSE 81
[2025-05-15] MEDS ORDERED: LEVO500T91 PO (08:35)
[2025-05-15] MEDS ORDERED: HYDR-4902 PO (08:35)
[2025-05-15 08:37] VITALS: BP 129/86; PULSE 86; RESP 16; TEMP 97.9; O2SAT 97
--- NOTE | 2025-05-15 08:38 | DVHPN2 ---
Reviewed: Care Plan Changes from previous H/P or p: No Changes Objective Vitals Vital Signs Date Time Temp Pulse Resp B/P (MAP) Pulse Ox O2 Delivery O2 Flow Rate FiO2 05/15/25 01:00 97.9 79 18 145/79 (101) 96 97.9 05/14/25 20:00 Room Air* 0 21 Intake/Output Intake and Output 05/15/25 07:00 Intake Total 3550 ml Output Total 9445 ml Balance -5895 ml Intake Oral 2550 ml IV Total 1000 ml Output Urine Total 9445 ml # Bowel Movements 2 Medications Current Medications Medications Dose Ordered Sig/Abi Route Start Time Stop Time Status Last Admin Dose Admin Sodium Chloride 10 ml Q8HR IV 05/10/25 22:00 05/15/25 05:27 10 ML Docusate Sodium 100 mg BIDPRN PRN PO 05/10/25 17:15 Acetaminophen 650 mg Q6HP PRN PO 05/10/25 17:15 05/12/25 00:18 650 MG Acetaminophen/ Hydrocodone Bitart 1 tab Q4HP PRN PO 05/10/25 17:15 05/12/25 23:30 1 TAB Hydromorphone HCl 0.5 mg Q4HP PRN IV 05/10/25 17:15 05/13/25 11:58 0.5 MG Ondansetron HCl 4 mg Q4HP PRN IV 05/10/25 17:15 Tamsulosin HCl 0.4 mg QPM PO 05/10/25 18:00 05/14/25 17:44 0.4 MG Hydralazine HCl 10 mg Q6HP PRN IV 05/10/25 17:30 Pantoprazole Sodium 40 mg DAILY IV 05/12/25 10:00 05/14/25 08:15 40 MG Sodium Chloride 1,000 ml @ 100 mls/hr Q10H IV 05/11/25 18:30 05/15/25 02:28 100 MLS/HR Vancomycin HCl 0 ml @ 0 mls/hr PER PHARMACY IV 05/11/25 18:30 Metoprolol Tartrate 25 mg BID PO 05/11/25 22:00 05/14/25 21:55 25 MG Vancomycin HCl 250 ml @ 125 mls/hr Q2H IV 05/11/25 21:15 05/12/25 01:14 Cancel Ceftriaxone Sodium 50 ml @ 100 mls/hr DAILY@09 IV 05/12/25 09:00 05/14/25 08:14 100 MLS/HR Sodium Bicarbonate 650 mg TID PO 05/14/25 14:00 05/15/25 05:27 650 MG Ferrous Sulfate 325 mg BIDWM PO 05/14/25 18:00 05/14/25 17:44 325 MG Laboratory Results Laboratory Tests 05/15/25 05:04 Chemistry Test 05/15/25 05:04 Albumin 3.2 g/dL (3.2-4.8) Calcium Level 8.3 mg/dL (8.7-10.4) L Total Protein 6.7 g/dL (5.7-8.2) LFT Test 05/15/25 05:04 Alanine Aminotransferase (ALT) 29 U/L (7-40) Alkaline Phosphatase 124 U/L (46-116) H Aspartate Amino Transferase (AST) 21 U/L (13-40) Total Bilirubin 0.7 mg/dL (0.2-1.0) Urinalysis Test 05/10/25 13:56 05/14/25 01:26 Urine Yeast (Budding) Occasional /hpf (None Urine Creatinine 169.33 mg/dL (30.0-125.0) H Urine Sodium 15 mmol/L (40-220) L Urine Color Light-yellow (Yellow) Urine Clarity Clear (Clear) Urine pH 5.5 (5.0-9.0) Urine Specific [place] 1.008 (1.001-1.035) Urine Protein Trace (Negative) H Urine Ketones Negative (Negative) Urine Blood 1+ /uL (Negative) H Urine Nitrite Negative (Negative) Urine Bilirubin Negative (Negative) Urine Urobilinogen Normal mg/dL (Negative) Urine Leukocyte Esterase 1+ /uL (Negative) Urine RBC 12 /hpf (0 - 3) Urine Microscopic WBC 33 /HPF (0-3) H Urine Squamous Epithelial Cells None seen /hpf (<5) Urine Bacteria None seen /hpf (None Seen) Urine Glucose Normal mg/dL (Normal) Microbiology Microbiology Date/Time Source Procedure Growth Status 05/11/25 12:50 Blood Blood Culture - Preliminary NO GROWTH AFTER 72 HOURS OF INCUBATION. Resulted 05/10/25 13:56 Voided Urine Urine Culture - Final Complete Labs and/or images reviewed: Labs reviewed by me, Image(s) reviewed by me Assessment/Plan Assessment/Plan Acute right flank pain Sepsis secondary to urinary tract infection blood cultures negative urine cultures negative, continue Rocephin Acute pyelonephritis: Bacteremia with Klebsiella pneumoniae from blood cultures prior to admission: Continue Rocephin 1 g IV daily, also sensitive to Levaquin p.o. 8 mm proximal/mid right ureteral calculus resulting in moderate right hydroureteronephrosis: Dr Coates planning for ESWL as an outpatient Moderate right hydronephrosis: Status post right nephrostomy tube Acute pancreatitis lipase 106, NPO, IV fluids, consult for GI Dr. Patricia Benítez appreciated Acute metabolic encephalopathy Anemia of chronic disease SVT: Cardiology consult by Dr. Barahona appreciated Hypertension Blood alcohol level negative Urology Dr. Coates cleared for discharge and advised outpatient ESWL Patient agrees for discharge on Wednesday with p.o. Levaquin Plan discussed with: Patient Date of Service: May 15, 2025 Billing Provider: KANG LEBLANC MD Common Visit Codes: [id number] INP/OBS CARE(HIGH) KANG LEBLANC MD May 15, 2025 08:38
--- NOTE | 2025-05-15 08:42 | DVHDS2 ---
Discharge Summary Date of Admission May 10, 2025 at 17:01 Date of Discharge: May 15, 2025 Admitting Diagnosis Right flank pain Wounds: None Labs/Diagnostic Data: Laboratory Results Test 05/15/25 05:04 05/14/25 01:26 05/13/25 01:26 05/12/25 02:22 White Blood Count 7.4 10^3/uL (4.4-10.8) Red Blood Count 3.31 10^6/uL (4.5-5.90) Hemoglobin 10.0 g/dL (13.5-17.5) Hematocrit 29.3 % (41.0-53.0) Mean Corpuscular Volume 88.7 fL (80.0-100.0) Mean Corpuscular Hemoglobin 30.1 pg (28.0-32.0) Mean Corpuscular Hemoglobin Concent 33.9 g/dL (32.0-36.0) Red Cell Distribution Width 15.9 % (11.8-14.3) Platelet Count 398 10^3/uL (140-450) Mean Platelet Volume 8.4 fL (6.9-10.8) Neutrophils (%) (Auto) 72.6 % (37.0-80.0) Lymphocytes (%) (Auto) 16.9 % (10.0-50.0) Monocytes (%) (Auto) 8.6 % (0.0-12.0) Eosinophils (%) (Auto) 1.5 % (0.0-7.0) Basophils (%) (Auto) 0.4 % (0.0-2.0) Neutrophils # (Auto) 5.4 10 ^3/uL (1.6-8.6) Lymphocytes # (Auto) 1.3 10 ^3/uL (0.4-5.4) Monocytes # (Auto) 0.6 10 ^3/uL (0-1.3) Eosinophils # (Auto) 0.1 10 ^3/uL (0-0.8) Basophils # (Auto) 0 10 ^3/uL (0-0.2) Nucleated Red Blood Cells 0.0 % Sodium Level 142 mmol/L (136-145) Potassium Level 4.3 mmol/L (3.5-5.1) Chloride Level 107 mmol/L (98-107) Carbon Dioxide Level 21 mmol/L (20-31) Anion Gap 14 (5-15) Blood Urea Nitrogen 59 mg/dL (9-23) Creatinine 6.04 mg/dL (0.700-1.30) Glomerular Filtration Rate Calc 10 mL/min (>90) BUN/Creatinine Ratio 9.8 (10.0-20.0) Serum Glucose 144 mg/dL (74-106) Calcium Level 8.3 mg/dL (8.7-10.4) Total Bilirubin 0.7 mg/dL (0.2-1.0) Aspartate Amino Transferase (AST) 21 U/L (13-40) Alanine Aminotransferase (ALT) 29 U/L (7-40) Alkaline Phosphatase 124 U/L (46-116) Total Protein 6.7 g/dL (5.7-8.2) Albumin 3.2 g/dL (3.2-4.8) Random Vancomycin Level 13.4 ug/mL (5-10) Urine Color Light-yellow (Yellow) Urine Clarity Clear (Clear) Urine pH 5.5 (5.0-9.0) Urine Specific [place] 1.008 (1.001-1.035) Urine Protein Trace (Negative) Urine Ketones Negative (Negative) Urine Blood 1+ /uL (Negative) Urine Nitrite Negative (Negative) Urine Bilirubin Negative (Negative) Urine Urobilinogen Normal mg/dL (Negative) Urine Leukocyte Esterase 1+ /uL (Negative) Urine RBC 12 /hpf (0 - 3) Urine Microscopic WBC 33 /HPF (0-3) Urine Squamous Epithelial Cells None seen /hpf (<5) Urine Bacteria None seen /hpf (None Seen) Urine Glucose Normal mg/dL (Normal) Urine Opiates Screen Neg (NEGATIVE) Urine Fentanyl Screen Pos (NEGATIVE) Urine Barbiturates Screen Neg (NEGATIVE) Urine Phencyclidine Screen Neg (NEGATIVE) Urine Amphetamines Screen Neg (NEGATIVE) Urine Benzodiazepines Screen Pos (NEGATIVE) Urine Cocaine Screen Neg (NEGATIVE) Urine Cannabinoids Screen Neg (NEGATIVE) Magnesium Level 1.7 mg/dL (1.6-2.6) Iron Level 10 ug/dL (65-175) Total Iron Binding Capacity 173 ug/dL (250-425) Percent Iron Saturation 5.8 % (20-55) Ferritin 2216.8 ng/mL (22-322) Vitamin B12 Level 1701 pg/mL (211-911) Folic Acid 12.22 ng/mL (>5.38) Test 05/11/25 19:25 05/11/25 12:50 05/11/25 05:22 05/10/25 15:21 Lactate Dehydrogenase 179 U/L (120-246) C-Reactive Protein High Sensitivity > 20.00 mg/dL (<1.0) Plasma/Serum Blood Alcohol < 3.0 mg/dL (<10) Hepatitis B Surface Antigen Negative (Negative) Hepatitis B Surface Antibody Negative (Negative) Hepatitis C Antibody Negative (Negative) Erythrocyte Sedimentation Rate 106 mm/hr (0-20) Prothrombin Time 12.5 sec (9.3-11.8) Prothrombin Time INR 1.20 (0.9-1.15) Activated Partial Thromboplast Time 34.4 SEC (24.5-34.5) Lactic Acid Level 0.8 mmol/L (0.4-2.0) Test 05/10/25 14:24 05/10/25 13:56 Lipase 104 U/L (12-53) Urine Yeast (Budding) Occasional /hpf (None Urine Creatinine 169.33 mg/dL (30.0-125.0) Urine Sodium 15 mmol/L (40-220) Other Laboratory Tests 05/15/25 05:04 Brief Hx & Hospital Course: 65-year-old male with a history of kidney stones hypertension went to primary care doctor's office and was found to have Klebsiella in the blood and sent over to the hospital for admission patient has a right nephrostomy tube secondary to 8 mm proximal right ureteral calculus with a moderate hydroureteronephrosis. Seen by Urology Dr. Victor advised outpatient ESWL patient was started on Rocephin for Klebsiella pneumoniae bacteremia repeat blood cultures repeat urine cultures in the hospital were negative. Patient feels well and being discharged home on Levaquin and [place] he will follow up with Dr. Coates for ESWL as an out pt. At the time of discharge patient is afebrile stable vital signs minimal pain. Consults/Reason for consult Urology Dr. Coates Operations or Procedures None Condition at Discharge: Fair Final Diagnosis/Problems List Acute right flank pain Sepsis secondary to urinary tract infection blood cultures negative urine cultures negative, continue Rocephin Acute pyelonephritis: Bacteremia with Klebsiella pneumoniae from blood cultures prior to admission: Continue Rocephin 1 g IV daily, also sensitive to Levaquin p.o. 8 mm proximal/mid right ureteral calculus resulting in moderate right hydroureteronephrosis: Dr Coates planning for ESWL as an outpatient Moderate right hydronephrosis: Status post right nephrostomy tube Acute pancreatitis lipase 106, NPO, IV fluids, consult for GI Dr. Patricia Benítez appreciated Acute metabolic encephalopathy Anemia of chronic disease SVT: Cardiology consult by Dr. Barahona appreciated Hypertension Discharge Disposition: Home Discharge Instruct/Medications Diet: Cardiac 2g Na,low cholest Activity: See Comment Activity comment: Off work for seven days Follow Up/Referral: Follow up with the Urology Dr. Coates for ESWL Follow up with the primary Dr Dr. Alf Razo Medications: Levaquin [place] [facility] Scheduled Labetalol Hcl (Labetalol Hcl), 1 TAB PO BID, (Reported) Levofloxacin Hemihydrate (Levaquin 500 Mg), 1 TAB PO DAILY Scheduled PRN Hydrocodone-Acetaminophen (Hydrocodone Bitartrate/AC 5-325 mg), 1 TAB PO QID PRN Miscellaneous Medications Amlodipine Besylate (Amlodipine Besylate), 1 TAB PO, (Reported) 39 (Time taken for discharge summary 39 minutes) Discharge Statement: "Patient was advised to return to the ER or call 911 if any headaches, dizziness, shortness of breath, chest pain, abdominal pain, bleeding, fevers, or worsening of medical condition. Patient was counseled about treatment plan, medications, possible side effects, patientverbalized understanding. All questions were answered to the best of my ability. This discharge took greater then 30 minutes in planning, reviewing documentation, counseling the patient, and discussing with other team members." ASSESSMENT ASSESSMENT Hospital Course Uneventful Assessment Acute right flank pain Sepsis secondary to urinary tract infection blood cultures negative urine cultures negative, continue Rocephin Acute pyelonephritis: Bacteremia with Klebsiella pneumoniae from blood cultures prior to admission: Continue Rocephin 1 g IV daily, also sensitive to Levaquin p.o. 8 mm proximal/mid right ureteral calculus resulting in moderate right hydroureteronephrosis: Dr Coates planning for ESWL as an outpatient Moderate right hydronephrosis: Status post right nephrostomy tube Acute pancreatitis lipase 106, NPO, IV fluids, consult for GI Dr. Patricia Benítez appreciated Acute metabolic encephalopathy Anemia of chronic disease SVT: Cardiology consult by Dr. Barahona appreciated Hypertension Date of Service: May 15, 2025 Billing Provider: KANG LEBLANC MD Common Visit Codes: [id number] DISCH DAY >30min KANG LEBLANC MD May 15, 2025 08:42
[2025-05-15 11:07] VITALS: BP 145/81
--- NOTE | 2025-05-15 12:20 | DVHPN2 ---
Progress Note Date Seen: May 15, 2025 Has the PT tested + for MRSA If YES, has PT been informed?: No Medical Necessity Reason Pt with a Central, PICC or Fol: Yes The following are medically ne: Mcwilliams Catheter (PRNT) Reason for mcwilliams catheter: Strict I&O Subjective Patient reports: Feels better Objective vital signs Vital Sign Date Time Temp Pulse Resp B/P (MAP) Pulse Ox O2 Delivery O2 Flow Rate FiO2 05/15/25 09:33 66 145/81 05/15/25 08:37 97.9 16 97 97.9 05/15/25 08:00 Room Air* 0 21 Total Intake and Output 05/14/25 05/14/25 05/15/25 15:00 23:00 07:00 Intake Total 50 ml 850 ml 2650 ml Output Total 3945 ml 5500 ml Balance 50 ml -3095 ml -2850 ml medications Current Medications Medications Dose Ordered Sig/Abi Route Start Time Stop Time Status Last Admin Dose Admin Sodium Chloride 10 ml Q8HR IV 05/10/25 22:00 05/15/25 05:27 10 ML Docusate Sodium 100 mg BIDPRN PRN PO 05/10/25 17:15 Acetaminophen 650 mg Q6HP PRN PO 05/10/25 17:15 05/12/25 00:18 650 MG Acetaminophen/ Hydrocodone Bitart 1 tab Q4HP PRN PO 05/10/25 17:15 05/12/25 23:30 1 TAB Hydromorphone HCl 0.5 mg Q4HP PRN IV 05/10/25 17:15 05/13/25 11:58 0.5 MG Ondansetron HCl 4 mg Q4HP PRN IV 05/10/25 17:15 Tamsulosin HCl 0.4 mg QPM PO 05/10/25 18:00 05/14/25 17:44 0.4 MG Hydralazine HCl 10 mg Q6HP PRN IV 05/10/25 17:30 Pantoprazole Sodium 40 mg DAILY IV 05/12/25 10:00 05/15/25 09:30 40 MG Sodium Chloride 1,000 ml @ 100 mls/hr Q10H IV 05/11/25 18:30 05/15/25 02:28 100 MLS/HR Vancomycin HCl 0 ml @ 0 mls/hr PER PHARMACY IV 05/11/25 18:30 Metoprolol Tartrate 25 mg BID PO 05/11/25 22:00 05/15/25 09:33 25 MG Vancomycin HCl 250 ml @ 125 mls/hr Q2H IV 05/11/25 21:15 05/12/25 01:14 Cancel Ceftriaxone Sodium 50 ml @ 100 mls/hr DAILY@09 IV 05/12/25 09:00 05/15/25 09:30 100 MLS/HR Sodium Bicarbonate 650 mg TID PO 05/14/25 14:00 05/15/25 05:27 650 MG Ferrous Sulfate 325 mg BIDWM PO 05/14/25 18:00 05/15/25 09:31 325 MG Examination: GENERAL:Normal, CVS:Normal, SKIN:Normal laboratory and microbiology Laboratory Tests 05/15/25 05:04 Test 05/15/25 05:04 Range/Units Serum Glucose 144 H 74-106 mg/dL Microbiology Date/Time Source Procedure Growth Status 05/14/25 01:26 Other Urine Culture - Preliminary No growth Resulted 05/11/25 12:50 Blood Blood Culture - Preliminary NO GROWTH AFTER 72 HOURS OF INCUBATION. Resulted 05/10/25 13:56 Voided Urine Urine Culture - Final Complete Problem List/Assessment/Plan Problem List/Assessment/Plan Acute kidney injury due to urinary obstruction ckd II right obstructing kidney stone with moderate hydronephrosis s/p PCNT anemia transaminitis Bcx show NG Urine culture was also negative Patient had 9 L urine output recorded over the last 24 hours, patient's creatinine appears to be stable encourage appropriate drug levels of ABX to avoid nephrotoxicity No indication for dialysis at this time given improved urinary output, patient will require outpatient follow-up oral iron Rest of care as per primary medical team Plan discussed with: Patient AMY CHIANG MD May 15, 2025 12:20
--- NOTE | 2025-05-15 14:28 | DVHPN2 ---
Progress Note - Dictate Date Seen: May 15, 2025 (Late entry Time of visit 12 noon) Has the PT tested + for MRSA If YES, has PT been informed?: No Medical Necessity Reason Pt with a Central, PICC or Fol: Yes The following are medically ne: Mcwilliams Catheter (PRNT) Reason for mcwilliams catheter: Strict I&O Subjective No new complaints Patient is feeling better Liver enzymes trending down Discharge planning is in progress No nausea and vomiting and tolerating diet vital signs Vital Sign Date Time Temp Pulse Resp B/P (MAP) Pulse Ox O2 Delivery O2 Flow Rate FiO2 05/15/25 12:34 74 130/77 05/15/25 08:37 97.9 16 97 97.9 05/15/25 08:00 Room Air* 0 21 Total Intake and Output 05/14/25 05/14/25 05/15/25 15:00 23:00 07:00 Intake Total 50 ml 850 ml 2650 ml Output Total 3945 ml 5500 ml Balance 50 ml -3095 ml -2850 ml medications Current Medications Medications Dose Ordered Sig/Abi Route Start Time Stop Time Status Last Admin Dose Admin Vancomycin HCl 250 ml @ 125 mls/hr Q2H IV 05/11/25 21:15 05/12/25 01:14 Cancel objective General: Obese, low-grade fevers, palor, mucosae are moist Cardiovascular: Regular S1 and S2. No murmurs, gallops or rubs. No JVD elevation. No pedal edema Respiratory: Normal B/L air entry on room air. Clear lung sounds on auscultation Abdomen: Soft, nontender, nondistended, normoactive bowel sounds, no rebound tenderness, no organomegaly, no masses MSK/skin: Mobilizes 4 limbs. Skin is dry and warm laboratory and microbiology Laboratory Tests 05/15/25 05:04 Test 05/15/25 05:04 Range/Units Serum Glucose 144 H 74-106 mg/dL Problems(with codes): (1) Elevated liver enzymes (2) Hypertensive urgency (3) Right flank pain (4) Hydronephrosis with renal and ureteral calculous obstruction (5) Pancreatitis Prognosis Plan Discharge planning is in progress Continue antibiotics Follow up with urology Outpatient follow up with GI Services for elective colonoscopy once stabilized from his urological problem and the kidney stone Plan discussed with: Patient ROX SEGOVIA MD May 15, 2025 14:28
--- NOTE | 2025-05-15 23:10 | DVHPN2 ---
Progress Note - Dictate Date Seen: May 15, 2025 Has the PT tested + for MRSA If YES, has PT been informed?: No Medical Necessity Reason Pt with a Central, PICC or Fol: Yes The following are medically ne: Mcwilliams Catheter (PRNT) Reason for mcwilliams catheter: Strict I&O Subjective Patient was seen and evaluated in follow up. Patient is c/o right flank discomfort. 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 Telemetry reviewed. vital signs Vital Sign Date Time Temp Pulse Resp B/P (MAP) Pulse Ox O2 Delivery O2 Flow Rate FiO2 05/15/25 12:34 74 130/77 05/15/25 08:37 97.9 16 97 97.9 05/15/25 08:00 Room Air* 0 21 Total Intake and Output 05/14/25 05/14/25 05/15/25 15:00 23:00 07:00 Intake Total 50 ml 850 ml 2650 ml Output Total 3945 ml 5500 ml Balance 50 ml -3095 ml -2850 ml medications Current Medications Medications Dose Ordered Sig/Abi Route Start Time Stop Time Status Last Admin Dose Admin Sodium Chloride 10 ml Q8HR IV 05/10/25 22:00 05/15/25 05:27 10 ML Docusate Sodium 100 mg BIDPRN PRN PO 05/10/25 17:15 Acetaminophen 650 mg Q6HP PRN PO 05/10/25 17:15 05/12/25 00:18 650 MG Acetaminophen/ Hydrocodone Bitart 1 tab Q4HP PRN PO 05/10/25 17:15 05/12/25 23:30 1 TAB Hydromorphone HCl 0.5 mg Q4HP PRN IV 05/10/25 17:15 05/13/25 11:58 0.5 MG Ondansetron HCl 4 mg Q4HP PRN IV 05/10/25 17:15 Tamsulosin HCl 0.4 mg QPM PO 05/10/25 18:00 05/14/25 17:44 0.4 MG Hydralazine HCl 10 mg Q6HP PRN IV 05/10/25 17:30 Pantoprazole Sodium 40 mg DAILY IV 05/12/25 10:00 05/15/25 09:30 40 MG Sodium Chloride 1,000 ml @ 100 mls/hr Q10H IV 05/11/25 18:30 05/15/25 02:28 100 MLS/HR Vancomycin HCl 0 ml @ 0 mls/hr PER PHARMACY IV 05/11/25 18:30 Metoprolol Tartrate 25 mg BID PO 05/11/25 22:00 05/15/25 09:33 25 MG Vancomycin HCl 250 ml @ 125 mls/hr Q2H IV 05/11/25 21:15 05/12/25 01:14 Cancel Ceftriaxone Sodium 50 ml @ 100 mls/hr DAILY@09 IV 05/12/25 09:00 05/15/25 09:30 100 MLS/HR Sodium Bicarbonate 650 mg TID PO 05/14/25 14:00 05/15/25 05:27 650 MG Ferrous Sulfate 325 mg BIDWM PO 05/14/25 18:00 05/15/25 09:31 325 MG objective GENERAL: Alert and oriented x 3. No acute distress. EYES: PERRL, EOMI. Anicteric. HENT: Moist mucous membranes. LUNGS: Clear to auscultation bilaterally. CARDIOVASCULAR: Regular rate and rhythm. ABDOMEN: RLQ TTP. EXTREMITIES: No edema. NEUROLOGIC: No focal neurological deficits. SKIN: Warm, dry. laboratory and microbiology Laboratory Tests 05/15/25 05:04 Test 05/15/25 05:04 Range/Units Serum Glucose 144 H 74-106 mg/dL Problem List Acute pyelonephritis. Hydronephrosis with obstructing calculus. Anemia. Sepsis due to urinary tract infection. SVT. HTN. Assessment/Plan Continued all current supportive medical care. Dilaudid and [place] for pain management. IV antibiotics as ordered. IV Hydralazine for SBP >160. Metoprolol. GI prophylactics. Additional plan as per the hospital course. Plan discussed with: Patient BARBARA MAGANA MD May 15, 2025 13:20
== END 2025-05-15 12:32 | disposition home or self-care (01) | DRG 871 ==
LOC: ER 13:41 → OVERFLOW 17:01 → TELE-CENTR 18:45 → WEST WING 18:59 → ICU CENTRL 05-11 20:24 → TELE-CENTR 05-13 17:37
PROVIDERS: ADMIT Family Medicine; ATTEND Family Medicine
PROC: 0T9330Z Drainage of Right Kidney Pelvis with Drainage Device, Percutaneous Approach (ICD-10-PCS; principal; 2025-05-11)
DX: A41.59 Other Gram-negative sepsis (principal); G93.41 Metabolic encephalopathy; K85.10 Biliary acute pancreatitis without necrosis or infection; I47.10 Supraventricular tachycardia, unspecified; D63.8 Anemia in other chronic diseases classified elsewhere; N13.6 Pyonephrosis; N17.9 Acute kidney failure, unspecified; B96.1 Klebsiella pneumoniae [K. pneumoniae] as the cause of diseases classified elsewhere; I12.9 Hypertensive chronic kidney disease with stage 1 through stage 4 chronic kidney disease, or unspecified chronic kidney disease; Z16.12 Extended spectrum beta lactamase (ESBL) resistance; N18.2 Chronic kidney disease, stage 2 (mild); K57.30 Diverticulosis of large intestine without perforation or abscess without bleeding; Z87.442 Personal history of urinary calculi; Z93.6 Other artificial openings of urinary tract status
CPT/HCPCS: 36415; 50432; 71045; 74176; 74425; 76700; 76942; 80048; 80053; 80202; 80307; 80320; 81001; 82570; 82607; 82728; 82746; 83540; 83550; 83605; 83615; 83690; 83735; 84300; 85025; 85610; 85652; 85730; 86141; 86706; 86803; 86850; 86900; 86901; 87040; 87086; 87340; 93005; 93306; 96365; 96368; 99152; G0378; J2250; J2470; J2543

== ENCOUNTER → 2025-05-18 | Outpatient (CLI) | payer OTHER ==
[~2025-05-18] MED LIST changes: +HYDR-4902 PO; +LEVO500T91 PO
[2025-05-18 09:48] LABS: Hematocrit 30.7 % (41.0-53.0); Hemoglobin 10.2 g/dL (13.5-17.5); Mean Corpuscular Hemoglobin 29.9 pg (28.0-32.0); Mean Corpuscular Volume 90.0 fL (80.0-100.0); Nucleated Red Blood Cells % 0.0 %
[2025-05-18 09:53] LABS: Urine Protein, UAD TRACE (Negative)
[2025-05-18 10:04] LABS: Alanine Aminotransferase 26 U/L (7-40); Albumin 4.0 g/dL (3.2-4.8); Alkaline Phosphatase 115 U/L (46-116); Anion Gap 12 (5-15); BUN/Creatinine Ratio 9.7 (10.0-20.0); Bilirubin, Total 0.7 mg/dL (0.2-1.0); Calcium 9.7 mg/dL (8.7-10.4); Carbon Dioxide 22 mmol/L (20-31); Chloride 105 mmol/L (98-107); Potassium 4.8 mmol/L (3.5-5.1); Sodium 139 mmol/L (136-145); Total Protein 7.8 g/dL (5.7-8.2)
[2025-05-18 10:05] LABS: Blood Urea Nitrogen 47 mg/dL (9-23); Glucose 107 mg/dL (74-106)
== END | disposition home or self-care (01) ==
LOC: LAB 09:36
PROVIDERS: ATTEND Internal Medicine
DX: N17.9 Acute kidney failure, unspecified (principal); N13.9 Obstructive and reflux uropathy, unspecified
CPT/HCPCS: 36415; 80053; 81001; 85025